=== PATIENT | female | born 1950 | race Caucasian/White ===

== ENCOUNTER → 2018-03-12 13:00 | Outpatient (CLI) | payer OTHER, SELFPAY | PROVIDERS: PCP Family Medicine | DX: Z23 Encounter for immunization (principal) | CPT/HCPCS: 90471; 90662 ==

== ENCOUNTER → 2019-04-01 10:39 | Outpatient (CLI) | payer OTHER, SELFPAY | PROVIDERS: PCP Family Medicine | DX: Z23 Encounter for immunization (principal) | CPT/HCPCS: 90471; 90662 ==

== ENCOUNTER → 2019-04-26 08:06 | Outpatient (CLI) | payer OTHER, SELFPAY | PROVIDERS: PCP Family Medicine; Visit Provider Family Medicine | DX: R30.0 Dysuria (principal) | CPT/HCPCS: 87086 ==

== ENCOUNTER 2019-06-03 08:34 | Emergency (ER) | payer OTHER, SELFPAY ==
[2019-06-03 08:39] VITALS: BP 154/100; PULSE 70; RESP 12; TEMP 36.4; O2SAT 99
--- NOTE | 2019-06-03 08:47 | DI.RAD.S_ITS ---
PROCEDURE: XR KNEE LT 3V INDICATIONS: fall/injury TECHNIQUE: 3 views of the knee were acquired. COMPARISON: None. FINDINGS: Bones: No fractures or dislocations. No suspicious bony lesions. Soft tissues: Moderate joint effusion. No suspicious soft tissue calcifications. IMPRESSION: No visualized acute fracture or dislocation. However, if clinical concern and/or pain persist, short interval imaging followup in 7-10 days is recommended, as occult injury cannot be definitively excluded. Dictated by: Gabi Tamayo M.D. on 06/03/2019 at 8:28 Approved by: Gabi Tamayo M.D. on 06/03/2019 at 8:28
--- NOTE | 2019-06-03 09:10 | ED.FALL ---
HPI - Fall General Chief Complaint: Fall Stated Complaint: fell Time Seen by Provider: 06/03/19 08:58 Source: patient Mode of arrival: Ambulatory Limitations: no limitations History of Present Illness HPI Narrative: 68-year-old female here for evaluation of left knee pain. Patient states this morning she was walking in the hallway here in the hospital where she tripped and fell forward landing on her left knee. Was able to ambulate afterwards but only a short distance. Has had a prior injury to this knee secondary to a fall in the past. States the pain is on the front of her knee. Related Data Previous Rx's Medication Instructions Recorded cephalexin 500 mg PO QID #28 cap 01/07/17 Review of Systems Constitutional Constitutional: Denies fever(s) Musculoskeletal Musculoskeletal: Denies tingling Comments: Left knee pain Integumentary/Breasts Skin/Breast: Denies lesions and Denies rash Neurologic Neurologic: Denies tingling and Denies paresthesias Hematologic/Lymphatic Hematologic/Lymphatic: Denies easy bleeding and Denies easy bruising Patient History Medical History Chronic sinusitis (Inactive) Sinusitis (Inactive) Vertigo (Inactive) Social History Smoking Status: Never smoker Substance Use Type: does not use Exam Initial Vital Signs Initial Vital Signs: Vital Signs Temperature 97.5 F L 06/03/19 08:39 Pulse Rate 70 06/03/19 08:39 Respiratory Rate 12 06/03/19 08:39 Blood Pressure 154/100 H 06/03/19 08:39 Pulse Oximetry 99 06/03/19 08:39 Const General: cooperative and healthy appearing Orientation: alert and awake Resp Effort & Inspection: normal respiratory effort Skin Lesions: no lesions Rashes: no rashes Neuro Sensory Exam: no sensory deficits noted Extrem Other: ACL MCL PCL and LCL all intact with functional testing. No tenderness to palpation on bilateral hamstrings posteriorly. Patient able to do a straight leg raise. No deficits noted in patella or quadriceps tendon. No effusion noted. Psych Appearance: grossly normal and well kempt Procedures Orthopedic Splinting/Casting Injury #1: Side: left Lower Extremity Injury Location: knee Lower Extremity Immobilizer: Kwasi wrap Post splinting neuro exam: intact Post splinting vascular exam: intact Placed by: Nursing Course Orders Ordered: ED Orders 06/03/19 08:47 XR knee LT 3V Stat Vital Signs Vital signs: Vital Signs - 8 hr 06/03/19 08:39 Temperature 97.5 F L Pulse Rate 70 Respiratory Rate 12 Blood Pressure 154/100 H Pulse Oximetry 99 MDM - Fall Imaging Data X-ray knee: Radiologist's impression: [address] [address] XRay Report Signed Patient: Edie Rivera JMR#: [id number] : 3Acct:[id number] Age/Sex: 68 / FDate of Service: 06/03/19 Loc: ED Accession Number: [id number] Procedure: XR knee LT 3V Ordering Provider: Josr De Jesus D.O. PROCEDURE: XR KNEE LT 3V INDICATIONS: fall/injury TECHNIQUE: 3 views of the knee were acquired. COMPARISON: None. FINDINGS: Bones: No fractures or dislocations. No suspicious bony lesions. Soft tissues: Moderate joint effusion. No suspicious soft tissue calcifications. IMPRESSION: No visualized acute fracture or dislocation. However, if clinical concern and/or pain persist, short interval imaging followup in 7-10 days is recommended, as occult injury cannot be definitively excluded. Dictated by: Gabi Tamayo M.D. on 06/03/2019 at 8:28 Approved by: Gabi Tamayo M.D. on 06/03/2019 at 8:28 [facility] Narrative Medical decision making narrative: No fractures are noted on the x-ray. Patient was neurovascularly intact. Do suspect bruising. Low suspicion for ligamentous injury. Patient was given care instructions and return precautions. She expressed understanding and agreement plan. Discharge Plan Departure Patient Disposition: Home Clinical Impression: Injury of knee, left Qualifiers: Encounter type: initial encounter Qualified Code(s): S89.92XA - Unspecified injury of left lower leg, initial encounter Instructions: How To Perform RICE (Rest, Ice, Compress, Elevate), How to Apply an Elastic Wrap on Knee Activity Restrictions/Additional Instructions: No fractures were noted on the x-rays. I do recommend that you ice your knee. Use the Kwasi bandage as needed for comfort as well. You can take Tylenol and/or ibuprofen for any discomfort. Return to the emergency department for any new or worsening symptoms Prescriptions: No Action cephalexin 500 MG capsule 500 mg PO QID Qty: 28 RF: 0 Referrals: Pippa Mera MD [Primary Care Provider] -
== END 2019-06-03 09:45 | disposition home or self-care (01) ==
PROVIDERS: Emergency Provider Emergency Medicine; PCP Family Medicine
DX: S89.92XA Unspecified injury of left lower leg, initial encounter (principal); W01.0XXA Fall on same level from slipping, tripping and stumbling without subsequent striking against object, initial encounter
CPT/HCPCS: 73562; 99283

== ENCOUNTER 2019-06-30 12:54 | Emergency (ER) | payer OTHER, SELFPAY ==
[2019-06-30 13:16] VITALS: BP 197/96; PULSE 70; RESP 18; TEMP 36.4; O2SAT 98
[2019-06-30] MEDS: ONDANSETRON 4 MG ODT SL (13:31)
[2019-06-30] MEDS: MECLIZINE HCL 12.5 MG TABLET 25 MG PO (13:31)
--- NOTE | 2019-06-30 13:52 | ED.DIZZY ---
HPI - Dizziness <MARYAM Green - Last Filed: 06/30/19 20:50> General Chief Complaint: Dizziness Stated Complaint: Vertigo,Nausea Time Seen by Provider: 06/30/19 13:34 Source: patient Mode of arrival: Ambulatory Limitations: no limitations History of Present Illness HPI Narrative: 68-year-old female presents emergency department complaining of vertigo for the past few hours. She states she usually gets a sinus infection which she was diagnosed with on Sunday. She was given antibiotics that she started taking on Sunday, she has also been using Flonase and purchased a Neti pot. However, she states that when she has sinus infections she experiences vertigo. She was in the store today and noted the room started spinning when she turns her head to left. She reports nausea but no vomiting, no syncope, chest pain, shortness of breath, ear pain, diarrhea, abdominal pain, or other concerns. Related Data Home Medications Medication Instructions Recorded Confirmed cefuroxime axetil 500 mg PO BID 06/30/19 06/30/19 Previous Rx's Medication Instructions Recorded meclizine 25 mg PO TID #20 tab 06/30/19 ondansetron 8 mg PO Q8H PRN #14 tab 06/30/19 Allergies Allergy/AdvReac Type Severity Reaction Status Date / Time No Known Drug Allergies Allergy Verified 06/30/19 13:20 Review of Systems <MARYAM Green - Last Filed: 06/30/19 20:50> Review of Systems Narrative: REVIEW OF SYSTEMS: GENERAL: Denies fever or chills. HENT: No head trauma, hearing loss or sore throat. Reports continued sinus congestion, see HPI. EYES: No loss of vision, double vision, eye pain, or irritation. CARDIOVASCULAR: No chest pain or syncope. RESPIRATORY: No shortness of breath or cough. GASTROINTESTINAL: No nausea, vomiting, diarrhea, or constipation. GENITOURINARY: No flank pain or dysuria. MUSCULOSKELETAL: No pain, weakness, or deformities. INTEGUMENTARY: No rash, lesions, or pruritus. NEURO: No numbness, tingling, memory loss, or confusion. Reports vertigo, see HPI. PSYCH: No behavior or mood changes. Patient History <MARYAM Green - Last Filed: 06/30/19 20:50> Medical History Chronic sinusitis (Inactive) Sinusitis (Inactive) Vertigo (Inactive) Social History Smoking Status: Never smoker Smoking Status: Never smoker alcohol intake frequency: holidays/special occasions only Substance Use Type: does not use Exam <MARYAM Green - Last Filed: 06/30/19 20:50> Initial Vital Signs Initial Vital Signs: Vital Signs Temperature 97.6 F 06/30/19 13:16 Pulse Rate 70 06/30/19 13:16 Respiratory Rate 18 06/30/19 13:16 Blood Pressure 197/96 H 06/30/19 13:16 Pulse Oximetry 98 06/30/19 13:16 PHYSICAL EXAMINATION: GENERAL: Well groomed, alert, and cooperative. Answers questions promptly and appropriately. Vital signs noted. HENT: Normocephalic, atraumatic. Ear canals patent. Oral mucosa is pink and moist. Patient's voice has a nasal tone, indicating nasal congestion. EYES: PERRLA, EOMIs,. Conjunctiva pink, sclera white, no periorbital swelling. CHEST: Normal to inspection and without deformities. CARDIOVASCULAR: S1 and S2 sounds normal. Regular rate and rhythm, no murmurs, clicks, or bruits. No pedal edema. RESPIRATORY: Normal respiratory rate, trachea midline, airway patent. No stridor, nasal flaring or accessory muscle use. Lungs are clear in all [place] without wheeze, rhonchi, or crackles. GASTROINTESTINAL: Bowel sounds normoactive. Abdomen is soft and non-tender. No organomegaly. MUSCULOSKELETAL: Normal gait and coordination. Equal tone and mass bilaterally. EXTREMITIES: CMS intact. Moves all extremities. SKIN: Warm, dry, soft, appropriate color for ethnicity. No lesions, rashes, or wounds. NEURO: Alert and Oriented X 3. CN III-XII intact. Good coordination. No ataxia, or sensory deficits, or cognitive issues. No vertical nystagmus. Positive [place]-Hallpike [place] maneuver. PSYCH: Appropriate affect and mood. <Marielos Arceo DO - Last Filed: 07/01/19 23:39> Initial Vital Signs Initial Vital Signs: Vital Signs Temperature 97.6 F 06/30/19 13:16 Pulse Rate 70 06/30/19 13:16 Respiratory Rate 18 06/30/19 13:16 Blood Pressure 197/96 H 06/30/19 13:16 Pulse Oximetry 98 06/30/19 13:16 Scores <MARYAM Green - Last Filed: 06/30/19 20:50> NIH Stroke Scale Level of Conciousness: Alert, keenly responsive Ask month/age: Answers both questions correctly. Open/close eyes, close hand: Performs both tasks correctly Best gaze horizontal: Normal Visual [place]: No visual loss Facial palsy: Normal symetrical movement Left arm drift: No drift for full 10 sec Right arm drift: No drift for full 10 sec Left leg drift: No drift for full 10 sec Right leg drift: No drift for full 10 sec Limb ataxia: Absent Sensory on face/arms/legs: Normal, no sensory loss Best language: No aphasia, normal Dysarthria: Normal Extinction or inattention: No abnormality Total NIH Stroke scale score: 0 Course <MARYAM Green - Last Filed: 06/30/19 20:50> Course Course Narrative: Patient was given meclizine and ondansetron. After an hour in the emergency department, she reports significantly improved symptoms. She states she is able to move her head without feelings of vertigo. Orders Ordered: Discontinued Medications Meclizine HCl (Antivert) 25 mg PO NOW ONE Stop: 06/30/19 13:23 Last Admin: 06/30/19 13:31 Dose: 25 mg Documented by: TG Ondansetron HCl (Zofran Odt) 4 mg SL NOW ONE Stop: 06/30/19 13:23 Last Admin: 06/30/19 13:31 Dose: 4 mg Documented by: TG Consultations Consultation #1: Patient staffed with Dr. Arceo Vital Signs Vital signs: Vital Signs - 8 hr 06/30/19 13:16 06/30/19 14:57 Temperature 97.6 F Pulse Rate 70 68 Respiratory Rate 18 18 Blood Pressure 197/96 H Blood Pressure [Left Arm] 185/82 H Pulse Oximetry 98 94 <Marielos Arceo DO - Last Filed: 07/01/19 23:39> Orders Ordered: Discontinued Medications Meclizine HCl (Antivert) 25 mg PO NOW ONE Stop: 06/30/19 13:23 Last Admin: 06/30/19 13:31 Dose: 25 mg Documented by: TG Ondansetron HCl (Zofran Odt) 4 mg SL NOW ONE Stop: 06/30/19 13:23 Last Admin: 06/30/19 13:31 Dose: 4 mg Documented by: TG Vital Signs Vital signs: Vital Signs - 8 hr 06/30/19 13:16 06/30/19 14:57 Temperature 97.6 F Pulse Rate 70 68 Respiratory Rate 18 18 Blood Pressure 197/96 H Blood Pressure [Left Arm] 185/82 H Pulse Oximetry 98 94 [facility] - Dizziness <Rupinder Lopez MARYAM - Last Filed: 06/30/19 20:50> Medical Records Attestation: I reviewed the patient's medical records. Lab Data Attestation: I reviewed the patient's lab results. [facility] Narrative Medical decision making narrative: This is a 68-year-old female with a history of vertigo who presents emergency department with an onset of vertigo starting today and the grocery store after being treated for sinus infection. History and examination is most consistent with benign positional vertigo (most likely due to positive Corrina-Hallpike maneuver, resolution of symptoms after medication administration, and lack of other significant symptoms such as fever neck pain). Less likely stroke as NIH score of 0, resolution of symptoms after administration meclizine, history of vertigo, recent sinus flexion. Less likely cardiac or pulmonary etiology due to lack of other symptoms such as chest pain or shortness of breath and resolution of symptoms after meclizine menstruation. Patient was counseled extensively to return emergency department if she develops new or worsening symptoms. She is prescribed meclizine to take for the next few days. Patient agreed with plan of care verbalized understanding. Discharge Plan Departure Patient Disposition: Home Clinical Impression: Vertigo Discharge Date/Time: 06/30/19 15:03 Instructions: DI for Vertigo Activity Restrictions/Additional Instructions: Thank you for entrusting me with your care today. As discussed, your symptoms are most likely caused by vertigo. I've given you a prescription for meclizine, anti vertigo medication and ondansetron, an anti nausea medication. [facility] in [place]. Continue to use Flonase and take your antibiotics. Follow up with your primary care provider in 1-2 weeks for re-evaluation of symptoms continue. Prescriptions: New ondansetron 8 mg tablet,disintegrating 8 mg PO Q8H PRN (Reason: nausea and vomiting) Qty: 14 RF: 0 meclizine 25 mg tablet 25 mg PO TID Qty: 20 RF: 0 No Action cefuroxime axetil 500 mg tablet 500 mg PO BID RF: 0 Referrals: Pippa Mera MD [Primary Care Provider] -
[2019-06-30 14:57] VITALS: BP 185/82; PULSE 68; RESP 18; O2SAT 94
== END 2019-06-30 15:03 | disposition home or self-care (01) ==
PROVIDERS: Emergency Provider Nurse Practitioner; PCP Family Medicine
DX: R42 Dizziness and giddiness (principal)
CPT/HCPCS: 99281; 99283

== ENCOUNTER 2019-09-14 05:42 | Emergency (ER) | payer OTHER, SELFPAY ==
[2019-09-14 05:59] VITALS: BP 130/74; PULSE 78; RESP 20; TEMP 36.7; O2SAT 98; BMI 35.2
--- NOTE | 2019-09-14 06:15 | DI.RAD.S_ITS ---
PROCEDURE: XR CHEST 1V INDICATIONS: cough and fever eval for PNA TECHNIQUE: One view of the chest was acquired. COMPARISON: [facility], CHEST 2 VIEW, 08/16/2014, 9:34. [facility], , CHEST 2 VIEW, 09/21/2014, 7:17. FINDINGS: Surgical changes and devices: None. Lungs and pleura: Lungs are clear. No pleural effusions or pneumothorax. Mediastinum: Mediastinal contours appear normal. Heart size is normal. Bones and chest wall: No suspicious bony lesions. Age-appropriate bony degenerative changes are seen. Overlying soft tissues appear unremarkable. IMPRESSION: Clear lungs. Note: No significant discrepancy from the preliminary report. Dictated by: Poncho Curry M.D. on 09/14/2019 at 7:03 Approved by: Poncho Curry M.D. on 09/14/2019 at 7:04
--- NOTE | 2019-09-14 06:15 | ED_ITS ---
HPI - General Adult General Chief complaint: Upper Respiratory Symptoms Stated complaint: cough small fever sinus infection Time Seen by Provider: 09/14/19 06:05 Source: patient Mode of arrival: Ambulatory Limitations: no limitations History of Present Illness HPI narrative: 68-year-old female. Currently on Keflex prescribed to her by an outside facility for a sinus infection. Here for evaluation of a cough. Is productive. No fevers. Been going on for the past couple days. At the than the Keflex as an tried anything for symptoms. No underlying lung issues. Related Data Home Medications Medication Instructions Recorded Confirmed cefuroxime axetil 500 mg PO BID 06/30/19 06/30/19 Previous Rx's Medication Instructions Recorded meclizine 25 mg PO TID #20 tab 06/30/19 ondansetron 8 mg PO Q8H PRN #14 tab 06/30/19 benzonatate [Tessalon Perles] 100 mg PO TID PRN #20 cap 09/14/19 prednisone 40 mg PO DAILY 3 Days #6 tab 09/14/19 Allergies Allergy/AdvReac Type Severity Reaction Status Date / Time No Known Drug Allergies Allergy Verified 06/30/19 13:20 Review of Systems Constitutional Constitutional: Denies fever(s) ENT Ears, Nose, Mouth, and Throat: Denies sore throat Respiratory Respiratory: Reports chest congestion, Reports cough and Reports wheezing Integumentary/Breasts Skin/Breast: Denies lesions and Denies rash Neurologic Neurologic: Denies behavioral changes Psychiatric Psychiatric: Denies behavioral changes Allergic/Immunologic Allergic/Immunologic: Reports wheezing Patient History Medical History Chronic sinusitis (Inactive) Sinusitis (Inactive) Vertigo (Inactive) Social History Smoking Status: Never smoker Smoking Status: Never smoker alcohol intake frequency: holidays/special occasions only Substance Use Type: does not use Exam Initial Vital Signs Initial Vital Signs: Vital Signs Temperature 98.1 F 09/14/19 05:59 Pulse Rate 78 09/14/19 05:59 Respiratory Rate 20 09/14/19 05:59 Blood Pressure 130/74 09/14/19 05:59 Pulse Oximetry 98 09/14/19 05:59 Const General: cooperative and comfortable Resp Effort & Inspection: normal respiratory effort and not labored Auscultation: rhonchi and wheezes Cardio Rate: regular rate Rhythm: regular rhythm Skin Lesions: no lesions Rashes: no rashes Neuro General: alert and awake Extrem General: normal to inspection Psych Appearance: grossly normal and well kempt Course Orders Ordered: ED Orders 09/14/19 06:15 XR chest 1V Stat Discontinued Medications Albuterol (Ventolin) 2.5 mg INH NOW ONE Stop: 09/14/19 06:15 Last Admin: 09/14/19 06:26 Dose: 2.5 mg Documented by: MARY Vital Signs Vital signs: Vital Signs - 8 hr 09/14/19 05:59 09/14/19 06:26 Temperature 98.1 F Pulse Rate 78 70 Respiratory Rate 20 20 Blood Pressure 130/74 Pulse Oximetry 98 95 Medical Decision Making Imaging Data Chest x-ray: Attestation: I personally reviewed and interpreted this imaging study as follows: My Impression: No focal consolidations No pneumonia MDM Narrative Medical decision making narrative: Patient not hypoxic. Not tachypneic. Not tachycardic. Afebrile. Does have coarse breath sounds bilateral which did improve after a albuterol treatment both objectively and subjectively. Chest x- ray does not show any definitive signs of pneumonia. Is currently on Keflex for a sinus infection. This is prescribed by an outside facility. Would not have been my 1st choice for an antibiotic however since she is already started it we will continue to have her take it. With her cough to suspect bronchitis. She did improve with the albuterol inhaler so will send home with a spacer and an MDI. We will also do a short course of steroids. Also give Tessalon Perles. Was given return precautions and follow-up instructions. She expressed understanding. Discharge Plan Departure Patient Disposition: Home Clinical Impression: Bronchitis Instructions: DI for Acute Bronchitis Activity Restrictions/Additional Instructions: Continue the antibiotics as directed. Use the albuterol inhaler as needed as directed. Contact your primary provider for follow-up. Return to the emergency department for any new or worsening symptoms Prescriptions: New benzonatate [Tessalon Perles] 100 mg capsule 100 mg PO TID PRN (Reason: cough) Qty: 20 RF: 0 prednisone 20 mg tablet 40 mg PO DAILY 3 Days Qty: 6 RF: 0 No Action cefuroxime axetil 500 mg tablet 500 mg PO BID RF: 0 ondansetron 8 mg tablet,disintegrating 8 mg PO Q8H PRN (Reason: nausea and vomiting) Qty: 14 RF: 0 meclizine 25 mg tablet 25 mg PO TID Qty: 20 RF: 0 Referrals: Pippa Mera MD [Primary Care Provider] -
[2019-09-14 06:26] VITALS: PULSE 70; RESP 20; O2SAT 95
[2019-09-14] MEDS: ALBUTEROL 2.5 MG/3 ML NEB (ADULT) INH (06:26)
[2019-09-14] MEDS: ALBUTEROL HFA PREPACK 1 BOX MISC (07:53)
--- NOTE | 2019-09-14 07:54 | RT ---
Pt instructed proper MDI usage.
[2019-09-14 08:06] VITALS: BP 124/70; PULSE 71; RESP 18; O2SAT 97
== END 2019-09-14 08:05 | disposition home or self-care (01) ==
PROVIDERS: Emergency Provider Emergency Medicine; PCP Family Medicine
DX: J40 Bronchitis, not specified as acute or chronic (principal)
CPT/HCPCS: 71045; 94640; 99283; J7613

== ENCOUNTER → 2019-12-22 07:37 | Outpatient (CLI) | payer OTHER, SELFPAY ==
--- NOTE | 2019-12-22 | DI.CT.S_ITS ---
PROCEDURE: CT SINUS SCREEN WO CON INDICATIONS: Chronic sinusitis TECHNIQUE: Noncontrast 3.0 mm axial images acquired from the frontal sinuses to the mid-sella, with coronal and sagittal reformats. For radiation dose reduction, the following was used: automated exposure control, adjustment of mA and/or kV according to patient size. COMPARISON: CT, SINUS SCREEN, 02/08/2010, 7:08. [facility], CT, SINUS SCREEN WO CONTRAST, 10/29/2015, 7:09. FINDINGS: Image quality: Excellent. Sinuses: There is minimal bilateral maxillary and trace ethmoid mucosal thickening. Remaining sinuses are clear. Ostiomeatal Complexes: Ostiomeatal complexes are patent. Miscellaneous: Visualized intra-orbital contents are normal. There is mild [id number] nasal septal deviation. There is a paradoxical right middle turbinate. There is slight hypertrophy of the left middle turbinate in comparison to the right of uncertain clinical significance. IMPRESSION: 1. Minimal scattered maxillary ethmoid mucosal thickening. 2. Ostiomeatal complexes are patent. Dictated by: Gabi Tamayo M.D. on 12/22/2019 at 13:00 Approved by: Gabi Tamayo M.D. on 12/22/2019 at 14:23
== END ==
PROVIDERS: PCP Family Medicine; Referring Provider Family Medicine; Visit Provider Family Medicine
DX: J32.9 Chronic sinusitis, unspecified (principal); J34.2 Deviated nasal septum
CPT/HCPCS: 70486

== ENCOUNTER 2020-03-07 08:52 | Emergency (ER) | payer OTHER, SELFPAY ==
[2020-03-07] VITALS (7 sets, daily range): BP systolic 199–214; BP diastolic 84–99; PULSE 51–77; RESP 10–28; TEMP 36.6; O2SAT 87–100; BMI 36.1
--- NOTE | 2020-03-07 09:27 | ED_ITS ---
HPI - Abdominal Pain General Chief Complaint: Abdominal Pain Stated Complaint: nauseu/ vomiting/ diarrhea Time Seen by Provider: 03/07/20 09:03 Source: patient Mode of arrival: Ambulatory Limitations: no limitations History of Present Illness HPI narrative: Patient is a 69-year-old who presents with epigastric pain. She says she ate [place] 2nd through pus diet with started having epigastric pain she threw up 3 times then immediately felt better she had a small amount of diarrhea. Her symptoms have completely resolved now. She is noted be quite hypertensive in the emergency department with a systolic over 200. She denies any known history of hypertension. 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 MD complaint: abdominal pain Pain Consistency: now resolved Location: epigastric Related Data Home Medications Medication Instructions Recorded Confirmed cefuroxime axetil 500 mg PO BID 06/30/19 06/30/19 Previous Rx's Medication Instructions Recorded meclizine 25 mg PO TID #20 tab 06/30/19 ondansetron 8 mg PO Q8H PRN #14 tab 06/30/19 benzonatate [Tessalon Perles] 100 mg PO TID PRN #20 cap 09/14/19 Allergies Allergy/AdvReac Type Severity Reaction Status Date / Time No Known Drug Allergies Allergy Verified 06/30/19 13:20 Review of Systems Review of Systems Narrative: GENERAL: Denies chills, fatigue, malaise, fever, sweats, travel HEENT: Denies sinus pain, ear pain, sore throat, difficulty swallowing, neck pain RESPIRATORY: Denies dyspnea, cough, wheezing, hemoptysis, sputum. CARDIOVASCULAR: Denies chest pain, palpitations, orthopnea, edema GASTROINTESTINAL: See HPI : Denies dysuria, frequency, incontinence, hematuria, urinary retention, flank pain. MUSCULOSKELETAL: Denies weakness, joint pain, or bony pain SKIN: No rash, no erythema, no pruritus NEUROLOGIC: Denies weakness, dizziness, headache, numbness, change in speech, confusion PSYCHIATRIC: No concerning psychosocial issues. 12 point review of systems is negative except for those stated above and HPI Patient History Medical History Chronic sinusitis (Inactive) Sinusitis (Inactive) Vertigo (Inactive) Social History Smoking Status: Never smoker Smoking Status: Never smoker alcohol intake frequency: holidays/special occasions only Substance Use Type: does not use Exam Initial Vital Signs Initial Vital Signs: Vital Signs Temperature 97.9 F 03/07/20 09:10 Pulse Rate 77 03/07/20 09:10 Respiratory Rate 20 03/07/20 09:10 Blood Pressure 214/99 H 03/07/20 09:10 Pulse Oximetry 99 03/07/20 09:10 GENERAL: Well-appearing, well-nourished and in no acute distress. HEENT: Head atraumatic,EOMI, pupils reactive, face symmetric, moist mucous membranes CARDIOVASCULAR: Regular rate and rhythm without murmurs, rubs or gallops. RESPIRATORY: Breath sounds equal bilaterally, no wheezes rales or rhonchi. ABDOMEN: Soft, nontender. Normoactive bowel sounds all 4 quadrants. No guarding or rebound. No Real sign EXTREMITIES: Normal range of motion, no clubbing or edema. Neurovascularly intact NEUROLOGICAL: Alert and oriented x4.Normal gait and speech. SKIN: Warm, dry, no laceration, no petechiae, no rashes or lesions. Course Orders Ordered: ED Orders 03/07/20 09:09 EKG-12 Lead Routine 03/07/20 09:30 Complete Blood Count AUTO DIFF Stat Comprehensive Metabolic Panel Stat Lipase Stat Troponin & CK Cardiac Panel Stat 03/07/20 09:35 XR chest 1V Stat COVID19 -ED/INPAT/OR/L&D Stat Vital Signs Vital signs: Vital Signs - 8 hr 03/07/20 09:10 03/07/20 09:29 03/07/20 09:30 Temperature 97.9 F Pulse Rate 77 59 L 63 Respiratory Rate 20 28 H 16 Blood Pressure 214/99 H 201/89 H Pulse Oximetry 99 98 99 03/07/20 10:00 03/07/20 10:01 03/07/20 10:30 Temperature Pulse Rate 54 L 55 L 55 L Respiratory Rate 10 L 18 20 Blood Pressure 202/84 H Pulse Oximetry 97 97 87 L 03/07/20 10:31 Temperature Pulse Rate 51 L Respiratory Rate 13 Blood Pressure 199/88 H Pulse Oximetry 100 MDM - Abdominal Pain Lab Data Attestation: I reviewed the patient's lab results. Result diagrams: 03/07/20 09:30 03/07/20 09:30 Labs: Lab Results 03/07/20 03/07/20 Range/Units 09:30 09:30 WBC 6.8 (4.5-11.0) X10^3/uL RBC 4.56 (4.0-5.2) X10^6/uL Hgb 13.8 (12.0-16.0) g/dL Hct 41.3 (36-46) % MCV 90.4 (80-100) fL MCH 30.2 (26-34) PG MCHC 33.4 (30-36) % RDW 13.1 (11.6-14.8) % Plt Count 226 (150-400) X10^3/uL Neut % (Auto) 79.4 H (50-75) % Lymph % (Auto) 15.3 L (25-40) % [place] % (Auto) 4.3 (3-14) % Eos % (Auto) 0.4 L (2-4) % Baso % (Auto) 0.6 (0-2) % Neut # (Auto) 5400 (7565-3267) /uL Lymph # (Auto) 1000 L (8169-3349) /uL [place] # (Auto) 300 (0-900) /uL Eos # (Auto) 0 (0-450) /uL Baso # (Auto) 0 (0-100) /uL Sodium 139 (137-145) mmol/L Potassium 4.1 (3.4-5.1) mmol/L Chloride 106 (98-107) mmol/L Carbon Dioxide 31 (22-32) mmol/L BUN 17 (7-17) mg/dL Creatinine 0.64 (0.52-1.04) mg/dL Estimated GFR > 60.0 (>60) mL/min BUN/Creatinine Ratio 26.6 H (6-22) Glucose 108 (80-110) mg/dL Calcium 9.1 (8.4-10.2) mg/dL Total Bilirubin 0.4 (0.2-1.3) mg/dL AST 27 (14-36) IU/L ALT 15 (<35) IU/L Alkaline Phosphatase 94 (38-126) U/L Total Creatine Kinase 114 (30-135) U/L CK-MB (CK-2) 1.23 (<2.37) ng/mL CK-MB (CK-2) Rel Index 1.1 L (1.5-5.0) % Troponin I < 0.012 (0.01-0.034) ng/mL Total Protein 7.0 (6.3-8.2) g/dL Albumin 4.1 (3.5-5.0) g/dL Globulin 2.9 (1.7-4.1) g/dL Albumin/Globulin Ratio 1.4 (1.0-2.8) Lipase 87 (23-300) U/L Imaging Data Chest x-ray: Radiologist's Impression: PROCEDURE: XR CHEST 1V INDICATIONS: CHEST PAIN TECHNIQUE: One view of the chest was acquired. COMPARISON: [facility], , CHEST 2 VIEW, 09/21/2014, 7:17. [facility], , CHEST 2 VIEW, 08/16/2014, 9:34. [facility], , XR CHEST 1V, 09/14/2019, 6:39. FINDINGS: Surgical changes and devices: None. Lungs and pleura: Lungs are clear. No pleural effusions or pneumothorax. Mediastinum: Mediastinal contours appear normal. Heart size is normal. Bones and chest wall: No suspicious bony lesions. Age-appropriate bony degener ative changes are seen. Overlying soft tissues appear unremarkable. IMPRESSION: Portable chest within normal limits. Dictated by: Poncho Curry M.D. on 03/07/2020 at 9:29 Approved by: Poncho Curry M.D. on 03/07/2020 at 9:30 ECG Data Attestation: I personally reviewed and interpreted this ECG as follows: Prior ECG tracings: not available for review Interpretation: Normal sinus rhythm rate 58 p.r. interval 172 QRS [address] changes no priors to compare MDM Narrative Medical decision making narrative: The patient's symptoms have completely resolved in the emergency department. She is however noted to be quite hypertensive which does improve slightly. Patient is quite anxious however at this time I recommend she follow-up with her PCP in regard to her blood pre ssure. There is no sign of end-organ damage. 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 I recommend if she still having symptoms to be tested in a couple of it days. Patient understands and agrees. I discussed all findings with the patient , Education has been performed regarding treatment plan, diagnosis, warning signs and symptoms and all concerns have been addressed. Verbally agree with and understood all of the above. Discharge Plan Departure Patient Disposition: Home Clinical Impression: Gastroenteritis Discharge Date/Time: 03/07/20 11:12 Instructions: DI for Viral Gastroenteritis -- Adult Activity Restrictions/Additional Instructions: *You have been diagnosed with gastroenteritis *What to do: You likely had a stomach bug. Increasing fluid intake with Gatorade or Gatorade like substance. Small frequent sips. You also need to have your blood pressure rechecked with her PCP it is remained elevated in the emergency department and you may need medications issue are continuing to experience diarrhea, vomiting, fever, sore throat, shortness of breath it may benefit you to be tested for COVID-19. *Continue to take medications as directed *Follow up with your primary care provider in 2-3 days *Return to ER if you should have inability to tolerate fluids, any of the above symptoms or any new, worsening or concerning symptoms Prescriptions: No Action cefuroxime axetil 500 mg tablet 500 mg PO BID RF: 0 ondansetron 8 mg tablet,disintegrating 8 mg PO Q8H PRN (Reason: nausea and vomiting) Qty: 14 RF: 0 meclizine 25 mg tablet 25 mg PO TID Qty: 20 RF: 0 benzonatate [Tessalon Perles] 100 mg capsule 100 mg PO TID PRN (Reason: cough) Qty: 20 RF: 0 Referrals: Pippa Mera MD [Primary Care Provider] -
--- NOTE | 2020-03-07 09:35 | DI.RAD.S_ITS ---
PROCEDURE: XR CHEST 1V INDICATIONS: CHEST PAIN TECHNIQUE: One view of the chest was acquired. COMPARISON: [facility], CHEST 2 VIEW, 09/21/2014, 7:17. [facility], , CHEST 2 VIEW, 08/16/2014, 9:34. [facility], , XR CHEST 1V, 09/14/2019, 6:39. FINDINGS: Surgical changes and devices: None. Lungs and pleura: Lungs are clear. No pleural effusions or pneumothorax. Mediastinum: Mediastinal contours appear normal. Heart size is normal. Bones and chest wall: No suspicious bony lesions. Age-appropriate bony degenerative changes are seen. Overlying soft tissues appear unremarkable. IMPRESSION: Portable chest within normal limits. Dictated by: Poncho Curry M.D. on 03/07/2020 at 9:29 Approved by: Poncho Curry M.D. on 03/07/2020 at 9:30
[2020-03-07 10:02] LABS: Add Manual Diff / Slide Review NO; Basophils Absolute Auto 0 /uL (0-100); Basophils Percent Auto 0.6 % (0-2); Eosinophils Absolute Auto 0 /uL (0-450); Eosinophils Percent Auto 0.4 % (2-4); Hematocrit 41.3 % (36-46); Hemoglobin 13.8 g/dL (12.0-16.0); Lymphocytes Absolute Auto 1000 /uL (1100-4500); Lymphocytes Percent Auto 15.3 % (25-40); Mean Corpuscular HGB Conc 33.4 % (30-36); Mean Corpuscular Hemoglobin 30.2 PG (26-34); Mean Corpuscular Volume 90.4 fL (80-100); Monocytes Absolute Auto 300 /uL (0-900); Monocytes Percent Auto 4.3 % (3-14); Neutrophils Absolute Auto 5400 /uL (1500-7000); Neutrophils Percent Auto 79.4 % (50-75); Platelet Count 226 X10^3/uL (150-400); Red Blood Cell Count 4.56 X10^6/uL (4.0-5.2); Red Cell Distribution Width 13.1 % (11.6-14.8); White Blood Cell Count 6.8 X10^3/uL (4.5-11.0)
[2020-03-07 10:06] LABS: Alanine Aminotransferase 15 IU/L (<35); Albumin 4.1 g/dL (3.5-5.0); Albumin Globulin Ratio 1.4 (1.0-2.8); Alkaline Phosphatase 94 U/L (38-126); Aspartate Aminotransferase 27 IU/L (14-36); BUN Creatinine Ratio 26.6 (6-22); Bilirubin Total 0.4 mg/dL (0.2-1.3); Blood Urea Nitrogen 17 mg/dL (7-17); Calcium 9.1 mg/dL (8.4-10.2); Carbon Dioxide 31 mmol/L (22-32); Chloride 106 mmol/L (98-107); Creatine Kinase 114 U/L (30-135); Estimated Glomerular Filt Rate > 60.0 mL/min (>60); Globulin 2.9 g/dL (1.7-4.1); Glucose 108 mg/dL (80-110); Lipase 87 U/L (23-300); Potassium 4.1 mmol/L (3.4-5.1); Sodium 139 mmol/L (137-145)
[2020-03-07 10:19] LABS: HEMOLYSIS < 15 (0-50); Troponin I < 0.012 ng/mL (0.01-0.034)
[2020-03-07 10:21] LABS: CKMB % Relative Index 1.1 % (1.5-5.0); Creatine Kinase MB 1.23 ng/mL (<2.37)
== END 2020-03-07 11:12 | disposition home or self-care (01) ==
PROVIDERS: Emergency Provider Emergency Medicine; PCP Family Medicine
DX: K52.9 Noninfective gastroenteritis and colitis, unspecified (principal); R07.9 Chest pain, unspecified
CPT/HCPCS: 36415; 71045; 80053; 82550; 82553; 83690; 84484; 85025; 93005; 99284

== ENCOUNTER → 2020-04-01 | Outpatient (CLI) | payer OTHER, SELFPAY | PROVIDERS: PCP Family Medicine; Referring Provider Internal Medicine; Visit Provider Internal Medicine | DX: Z23 Encounter for immunization (principal) | CPT/HCPCS: 90471; 90662 ==

== ENCOUNTER 2020-05-07 10:42 | Emergency (ER) | payer OTHER, SELFPAY ==
[2020-05-07] VITALS (7 sets, daily range): BP systolic 151–206; BP diastolic 65–86; PULSE 66–78; RESP 16; TEMP 37; O2SAT 94–100; BMI 37.0
--- NOTE | 2020-05-07 11:27 | DI.US.S_ITS ---
PROCEDURE: US PERIPH VENOUS LOW EXTREM RT INDICATIONS: RIGHT LOWER EXTREMITY SWELLING, CALF CRAMPING TECHNIQUE: Real-time imaging, as well as color and pulse Doppler interrogation, were performed of the lower extremity deep veins from the inguinal ligament to the popliteal fossa. COMPARISON: None. FINDINGS: The common femoral, femoral and popliteal veins are normally compressible, and free of intraluminal thrombus. Color and pulse Doppler demonstrate normal phasic intraluminal flow. There is normal augmentation response to distal compression maneuver. IMPRESSION: No evidence of deep venous thrombosis. Dictated by: Mu Sullivan M.D. on 05/07/2020 at 12:19 Approved by: Mu Sullivan M.D. on 05/07/2020 at 12:22
[2020-05-07] MEDS: LIDOCAINE PATCH 1 EACH ADH..PATCH TOP (13:59)
--- NOTE | 2020-05-07 14:36 | ED_ITS ---
HPI - Back Pain/Injury <MARYAM Santos - Last Filed: 05/07/20 21:48> General Chief Complaint: Back Pain/Injury Stated Complaint: Mid back pain,Right leg pain Time Seen by Provider: 05/07/20 14:12 Source: patient Mode of arrival: Ambulatory Limitations: no limitations History of Present Illness HPI Narrative: This is a 69-year-old female, nonsmoker, who has no contributory medical history presents to ED with left lumbar pain when she woke up this morning became worse she tried to turn over. Pain was so severe he sled down to the floor but denies trauma or a hard fall. Patient reports when pain is severe pain crosses the waist. Patient denies weakness to legs. Patient denies fever, chills, nausea or vomiting. Patient denies previous back surgery or history of IV drug use. Reports pain worse with changing in position, walking. She drove herself to emergency room today. Also, patient reports right calf pain and slight swelling. 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 She denies history of blood clots or DVT, hormone replacement, prolonged travel. She denies redness or warmth to affected leg. Related Data Previous Rx's Medication Instructions Recorded meclizine 25 mg PO TID #20 tab 06/30/19 ondansetron 8 mg PO Q8H PRN #14 tab 06/30/19 cyclobenzaprine 5 - 10 mg PO BID PRN #10 tab 05/07/20 lidocaine 1 patch TOP DAILY PRN #30 each 05/07/20 Allergies Allergy/AdvReac Type Severity Reaction Status Date / Time No Known Drug Allergies Allergy Verified 05/07/20 11:08 Review of Systems <MARYAM Santos - Last Filed: 05/07/20 21:48> Review of Systems Narrative: General: Denies fever, chills, fatigue, malaise, sweats. HEENT: Denies sinus pain, ear pain, sore throat, difficulty swallowing, dizziness. Respiratory: Denies dyspnea, cough, wheezing, hemoptysis, sputum. Cardiovascular: Denies chest pain, palpitations, orthopnea, edema. Gastrointestinal: Denies nausea, vomiting, abdominal pain, diarrhea, constipation, melena. : Denies dysuria, frequency, incontinence, hematuria, urinary retention. Musculoskeletal: See HPI Skin: Denies rash, skin lesions, or other. Neurologic: Denies weakness, headache, numbness, change in speech, confusion, seizures, incoordination. Psychiatric: No concerning psychosocial issues. 12-point review of systems is negative except for those stated above. Patient History <MARYAM Santos - Last Filed: 05/07/20 21:48> Medical History Chronic sinusitis (Inactive) Sinusitis (Inactive) Vertigo (Inactive) Social History Smoking Status: Never smoker Smoking Status: Never smoker alcohol intake frequency: holidays/special occasions only Substance Use Type: does not use Exam <MARYAM Santos - Last Filed: 05/07/20 21:48> Narrative Exam Narrative: General appearance: well developed, well nourished, in no acute distress. Head: normocephalic, atraumatic, no scalp lesions, non-tender. ENT: Hearing grossly intact. Nose without bleeding, purulent discharge, septal hematoma or deviation. Turbinate without erythema or swelling. Mucous membrane moist, no mucosal lesion. Throat without erythema, tonsillar hypertrophy or exudate. Uvula in midline, airway patent. Neck/Thyroid: neck supple, full range of motion, no visible masses or meningeal signs. No JVD, non-tender without lymphadenopathy. Skin: no suspicious rashes, lesions over visible areas. Warm and dry and appropriate color for ethnicity. Heart: no clubbing, no cyanosis, no edema. S1 and S2 normal. RRR w/o murmurs, clicks, or bruits. Lungs: Breathing even and unlabored. No stridor. No accessory muscles used. Able to speak in full sentences. Chest: normal shape and expansion. Abdomen: non-obese, non-distended. Neurologic: alert and oriented. Cognitive exam, DEAL ARCHITECT and PNS grossly intact on informal exam. Psych: good eye contact, normal affect. Initial Vital Signs Initial Vital Signs: Vital Signs Pulse Rate 78 05/07/20 11:04 Respiratory Rate 16 05/07/20 11:04 Blood Pressure 206/83 H 05/07/20 11:04 Pulse Oximetry 98 05/07/20 11:04 Back/Spine/Pelvis Back: normal to inspection, back tenderness (left lower back), No CVA tenderness, No ecchymosis, No erythema, No mass and No warmth Thoracic/Lumbar Spine: straight leg raise negative bilaterally, bend over test abnormal, pain with thoraco-lumbar ROM, paraspinal tenderness (left lumbar), thoraco-lumbar spasm (left lumbar region), No thoracic spinal tenderness, No lumbar spinal tenderness and No tilt present Extrem Right lower extremity: normal to inspection, full ROM, lower leg Details: normal to inspection, tenderness Location: of the posterior calf and no edema; no erythema, no localized swelling, no lacerations, no ecchymosis and no crepitus and foot Details: normal capillary refill, toes with normal ROM, vascular exam Details: dorsalis pedis pulse present and normal capillary refill and motor- sensory exam Details: light-touch normal; no cyanosis and no edema <Angelina Lopez DO - Last Filed: 05/12/20 07:23> Initial Vital Signs Initial Vital Signs: Vital Signs Pulse Rate 78 05/07/20 11:04 Respiratory Rate 16 05/07/20 11:04 Blood Pressure 206/83 H 05/07/20 11:04 Pulse Oximetry 98 05/07/20 11:04 Scores <MARYAM Santos - Last Filed: 05/07/20 21:48> GCS [place] coma scale eye opening: Spontaneous [place] coma scale verbal response: Orientated [place] coma scale motor response: Obey commands [place] coma scale total score: 15 qSOFA Altered Mental Status (GCS <15): No Respiratory rate greater than/equal to 22: No Systolic blood pressure less than or equal to 100: No qSOFA Total: 0 0-1 Not High Risk 1-3 High risk Wells' Criteria for DVT Active Cancer (Treatment within 6 months): No Bedridden recently >3 days or major surgery within 4 weeks: No Calf Swelling >3cm compared to other leg: No Collateral (nonvericose) superficial veins present: No Entire leg swollen: No Localized tenderness along the deep vein system: No Pitting edema, confined to symtomatic leg: No Paralysis, paresis, or recent plaster immobilization of ext: No Previously documented DVT: No Alternative dx to DVT as likely or more likely: No Wells' criteria for DVT: 0 Course <MARYAM Santos - Last Filed: 05/07/20 21:48> Orders Ordered: Discontinued Medications Acetaminophen (Tylenol) 650 mg PO NOW ONE Stop: 05/07/20 14:34 Last Admin: 05/07/20 14:55 Dose: 650 mg Documented by: MISHAINOR Ketorolac Tromethamine (Toradol) 30 mg IM NOW ONE Stop: 05/07/20 14:34 Last Admin: 05/07/20 14:55 Dose: 30 mg Documented by: MMINOR Lidocaine (Lidoderm) 1 each TOP NOW ONE Stop: 05/07/20 13:57 Last Admin: 05/07/20 13:59 Dose: 1 each Documented by: NIDA Vital Signs Vital signs: Vital Signs - 8 hr 05/07/20 15:03 05/07/20 15:30 05/07/20 15:31 Pulse Rate 66 69 69 Blood Pressure 191/86 H 162/72 H Pulse Oximetry 99 100 98 05/07/20 16:00 05/07/20 16:30 Pulse Rate 73 70 Blood Pressure 151/65 H 180/71 H Pulse Oximetry 94 97 <Angelina Lopez DO - Last Filed: 05/12/20 07:23> Orders Ordered: Discontinued Medications Acetaminophen (Tylenol) 650 mg PO NOW ONE Stop: 05/07/20 14:34 Last Admin: 05/07/20 14:55 Dose: 650 mg Documented by: MISHAINOR Ketorolac Tromethamine (Toradol) 30 mg IM NOW ONE Stop: 05/07/20 14:34 Last Admin: 05/07/20 14:55 Dose: 30 mg Documented by: MMINOR Lidocaine (Lidoderm) 1 each TOP NOW ONE Stop: 05/07/20 13:57 Last Admin: 05/07/20 13:59 Dose: 1 each Documented by: NIDA Vital Signs Vital signs: Vital Signs - 8 hr 05/07/20 15:03 05/07/20 15:30 05/07/20 15:31 Pulse Rate 66 69 69 Blood Pressure 191/86 H 162/72 H Pulse Oximetry 99 100 98 05/07/20 16:00 05/07/20 16:30 Pulse Rate 73 70 Blood Pressure 151/65 H 180/71 H Pulse Oximetry 94 97 MDM - Back Pain/Injury <MARYAM Santos - Last Filed: 05/07/20 21:48> Differential Diagnosis Differential diagnosis: Likely strain of lumbar region, pyelonephritis and other (calf pain, DVT, spine compression fracture) Medical Records Attestation: I reviewed the patient's medical records. Lab Data Attestation: I reviewed the patient's lab results. Labs: Urine Dip Bedside Urine Glucose Negative Bedside Urine Bilirubin - Negative Bedside Urine Ketone +++ 80 Urine Specific [place] 1.030 Bedside Urine Occult Blood + Bedside Urine pH 6.0 Bedside Urine Protein +/- 15 Bedside Urine Urobilinogen - Negative Bedside Urine Nitrite - Negative Bedside Urine Leukocytes - Negative Esterase Imaging Data XR-Lumbar: Radiologist's Impression: [address] [id number] XRay Report Signed Patient: Edie Rivera THEODORER#: [id number] : 3Acct:[id number] Age/Sex: 69 / FDate of Service: 05/07/20 Loc: ED Accession Number: [id number] Procedure: XR lumbar spine 2-3V Ordering Provider: Jeremi Griffin PROCEDURE: XR LUMBAR SPINE 2-3V INDICATIONS: left lumbar pain, s/p a gentle fall TECHNIQUE: 3 views of the lumbar spine were acquired. COMPARISON: None. FINDINGS: Bones: 5 [id number] vertebrae are present. There is normal bony alignment. No acute vertebral body compression fractures. No suspicious bony lesions. Moderate multilevel lumbar spondylosis with severe lower lumbar facet arthropathy. Degenerative changes of the bilateral femoroacetabular joints. Soft tissues: Overlying bowel gas pattern is normal. No suspicious soft tissue calcifications. IMPRESSION: Lumbar spine without acute osseous abnormalities. Moderate multilevel lumbar spondylosis. Dictated by: Julien Morales M.D. on 05/07/2020 at 14:52 Approved by: Julien Morales M.D. on 05/07/2020 at 14:53 US-DVT RLE: Radiologist's Impression: [address] [address] Ultrasound Report Signed Patient: Edie Rivera JMR#: [id number] : 3Acct:[id number] Age/Sex: 69 / FDate of Service: 05/07/20 Loc: ED Accession Number: [id number] Procedure: perip venous low extrem rt Ordering Provider: Angelina Lopez D.O. PROCEDURE: US PERIPH VENOUS LOW EXTREM RT INDICATIONS: RIGHT LOWER EXTREMITY SWELLING, CALF CRAMPING TECHNIQUE: Real-time imaging, as well as color and pulse Doppler interrogation, were performed of the lower extremity deep veins from the inguinal ligament to the popliteal fossa. COMPARISON: None. FINDINGS: The common femoral, femoral and popliteal veins are normally compressible, and free of intraluminal thrombus. Color and pulse Doppler demonstrate normal phasic intraluminal flow. There is normal augmentation response to distal compression maneuver. IMPRESSION: No evidence of deep venous thrombosis. Dictated by: Mu Sullivan M.D. on 05/07/2020 at 12:19 Approved by: Mu Sullivan M.D. on 05/07/2020 at 12:22 MDM Narrative Medical decision making narrative: This is a 69 year female who presents to ED with left lumbar pain without sciatica and right calf pain and swelling. Patient fell gently due to back pain this morning. Wells criteria for DVT score is 0. US for DVT on RLE indicates no evidence of DVT. Lumbar x-ray test result shows no acute osseous abnormalities with moderate multilevel lumbar spondylosis. Patient has intact strength and sensation bilaterally in lower extremities. Pain increases with movements, and changing in position. Urine test not indicating infection. Patient was medicated with Tylenol, Toradol and Lidocaine patch and patient was able to take a nap with improved pain. Unable to medicate patient with muscle relaxant since she drove to ED. patient discharged to home with Flexeril and lidocaine patch and advise continue to use [id number] Tylenol and or Motrin as needed for musculoskeletal low back pain. Patient work off note provided for 2 days. Return precautions were discussed with patient and she verbalized understanding and agreement with the treatment plan. <Angelina Lopez, - Last Filed: 05/12/20 07:23> Lab Data Labs: Urine Dip Bedside Urine Glucose Negative Bedside Urine Bilirubin - Negative Bedside Urine Ketone +++ 80 Urine Specific [place] 1.030 Bedside Urine Occult Blood + Bedside Urine pH 6.0 Bedside Urine Protein +/- 15 Bedside Urine Urobilinogen - Negative Bedside Urine Nitrite - Negative Bedside Urine Leukocytes - Negative Esterase Discharge Plan Departure Patient Disposition: Home Clinical Impression: Pain of right calf Low back pain Qualifiers: Chronicity: acute Back pain laterality: left Sciatica presence: without sciatica Qualified Code(s): M54.5 - Low back pain Discharge Date/Time: 05/07/20 16:58 Instructions: DI for Low Back Pain, DI for Leg Pain Activity Restrictions/Additional Instructions: You have been diagnosed with [left low back pain and right calf pain. X-ray and ultrasound test does not find acute findings.]. What to do: *Take your medications as directed. Please take [id number] Tylenol 650- 1000 mg up to 3 times a day as needed. Ibuprofen 400-600 mg up to 3 times a day as needed for pain with food to decrease GI irritation. Lidocaine patch stays on for 12 hours and off for 12 hours use it as needed for pain. Flexeril for muscle relaxant and this medication can cause drowsiness so please take precaution not driving, drinking alcohol, or operating heavy equipments. This medication have been transmitted to [facility] in [place]. *Follow up with your primary care provider in 2-3 days, call for an appointment. Let them know you were seen in the ED and that we asked you to be seen in follow up. *Return to ED if you have any new, worsening, or concerning symptoms, such as [worsening pain, fever, urinary symptoms, blood in your urine, chest pain, breathing difficulty, unable to tolerate fluids, tingling/numbness/weakness to lower extremities or any acute concerns.]. Prescriptions: New cyclobenzaprine 10 mg tablet 5 - 10 mg PO BID PRN (Reason: muscle spasm) Qty: 10 RF: 0 lidocaine 5 % adhesive patch,medicated 1 patch TOP DAILY PRN (Reason: pain) Qty: 30 RF: 0 No Action ondansetron 8 mg tablet,disintegrating 8 mg PO Q8H PRN (Reason: nausea and vomiting) Qty: 14 RF: 0 meclizine 25 mg tablet 25 mg PO TID Qty: 20 RF: 0 Referrals: Pippa Mera MD [Primary Care Provider] - Stand Alone Forms: Work Release Note <Angelina Lopez DO - Last Filed: 05/12/20 07:23> [facility] Attestation: I was immediately available in the department for consultation. This documentation has been reviewed. Supervised by Angelina Lopez DO
[2020-05-07] MEDS: ACETAMINOPHEN 325 MG TABLET 650 MG PO (14:55)
[2020-05-07] MEDS: KETOROLAC 60 MG/2 ML VIAL 30 MG IM (14:55)
--- NOTE | 2020-05-07 15:11 | DI.RAD.S_ITS ---
PROCEDURE: XR LUMBAR SPINE 2-3V INDICATIONS: left lumbar pain, s/p a gentle fall TECHNIQUE: 3 views of the lumbar spine were acquired. COMPARISON: None. FINDINGS: Bones: 5 [id number]-hqmpsij vertebrae are present. There is normal bony alignment. No acute vertebral body compression fractures. No suspicious bony lesions. Moderate multilevel lumbar spondylosis with severe lower lumbar facet arthropathy. Degenerative changes of the bilateral femoroacetabular joints. Soft tissues: Overlying bowel gas pattern is normal. No suspicious soft tissue calcifications. IMPRESSION: Lumbar spine without acute osseous abnormalities. Moderate multilevel lumbar spondylosis. Dictated by: Julien Morales M.D. on 05/07/2020 at 14:52 Approved by: Julien Morales M.D. on 05/07/2020 at 14:53
== END 2020-05-07 16:58 | disposition home or self-care (01) ==
PROVIDERS: Emergency Provider Nurse Practitioner Family; PCP Family Medicine
DX: M79.604 Pain in right leg (principal); M54.5 Low back pain
CPT/HCPCS: 72100; 81003; 93971; 96372; 99284; J1885

== ENCOUNTER → 2020-05-31 08:41 | Outpatient (CLI) | payer OTHER, SELFPAY ==
[2020-05-31 11:47] LABS: COVID19 -Nasal RAPID Negative (Negative)
== END ==
PROVIDERS: PCP Family Medicine; Visit Provider Physician Assistant
DX: Z11.59 Encounter for screening for other viral diseases (principal)
CPT/HCPCS: 87635

== ENCOUNTER → 2020-06-11 11:36 | Outpatient (CLI) | payer OTHER, SELFPAY ==
--- NOTE | 2020-06-11 | DI.RAD.S_ITS ---
PROCEDURE: XR CHEST 2V INDICATIONS: Cough TECHNIQUE: 2 views of the chest were acquired. COMPARISON: [facility], CR, XR CHEST 1V, 03/07/2020, 10:01. FINDINGS: Surgical changes and devices: None. Lungs and pleura: Lungs are clear. No pleural effusions or pneumothorax. Mediastinum: Mediastinal contours are normal. Heart size is normal. Bones and chest wall: No suspicious bony abnormalities. Soft tissues appear unremarkable. IMPRESSION: No acute disease. Dictated by: Mu Sullivan M.D. on 06/11/2020 at 12:45 Approved by: Mu Sullivan M.D. on 06/11/2020 at 13:07
== END ==
PROVIDERS: PCP Family Medicine; Referring Provider Family Medicine; Visit Provider Family Medicine
DX: R05 Cough (principal)
CPT/HCPCS: 71046

== ENCOUNTER → 2020-08-05 10:02 | Outpatient (CLI) | payer OTHER, SELFPAY ==
[2020-08-05 11:01] LABS: Add Manual Diff / Slide Review NO; Basophils Absolute Auto 0 /uL (0-100); Basophils Percent Auto 0.7 % (0-2); Eosinophils Absolute Auto 100 /uL (0-450); Eosinophils Percent Auto 1.8 % (2-4); Hematocrit 40.7 % (36-46); Hemoglobin 14.1 g/dL (12.0-16.0); Lymphocytes Absolute Auto 1500 /uL (1100-4500); Lymphocytes Percent Auto 23.3 % (25-40); Mean Corpuscular HGB Conc 34.7 % (30-36); Mean Corpuscular Hemoglobin 31.2 PG (26-34); Mean Corpuscular Volume 90.1 fL (80-100); Monocytes Absolute Auto 400 /uL (0-900); Monocytes Percent Auto 6.7 % (3-14); Neutrophils Absolute Auto 4400 /uL (1500-7000); Neutrophils Percent Auto 67.5 % (50-75); Platelet Count 252 X10^3/uL (150-400); Red Blood Cell Count 4.52 X10^6/uL (4.0-5.2); Red Cell Distribution Width 13.2 % (11.6-14.8); White Blood Cell Count 6.6 X10^3/uL (4.5-11.0)
[2020-08-05 11:30] LABS: Erythrocyte Sedimentation Rate 6 MM/HR (0-20)
[2020-08-08 05:49] LABS: Immunoglobulin E 5 IU/mL (6-495)
== END ==
PROVIDERS: PCP Family Medicine; Referring Provider Allergy & Immunology; Visit Provider Allergy & Immunology
DX: R05 Cough (principal)
CPT/HCPCS: 36415; 82785; 85025; 85651

== ENCOUNTER → 2020-11-15 09:23 | Outpatient (CLI) | payer OTHER, SELFPAY ==
[2020-11-15 12:01] LABS: COVID19 -Nasal RAPID Negative (Negative)
== END ==
PROVIDERS: PCP Family Medicine; Visit Provider Student in an Organized Health Care Education/Training Program
DX: Z20.822 Contact with and (suspected) exposure to COVID-19 (principal)
CPT/HCPCS: 87635

== ENCOUNTER → 2020-11-23 08:40 | Outpatient (CLI) | payer OTHER, SELFPAY ==
[2020-11-23 09:04] LABS: COVID19 -Nasal RAPID Negative (Negative)
== END ==
PROVIDERS: PCP Family Medicine; Visit Provider Physician Assistant
DX: Z20.822 Contact with and (suspected) exposure to COVID-19 (principal)
CPT/HCPCS: 87635

== ENCOUNTER → 2020-12-20 07:48 | Outpatient (CLI) | payer OTHER, SELFPAY ==
--- NOTE | 2020-12-20 | DI.ECHO.S_ITS ---
[facility] +---------+ : : [address] [place] [address] : : : : [id number] : : : : Phone: [phone] Echocardiogram Report + + :Name: AL CARBALLO Study Date: 12/20/2020 Height: 60 in : :[facility] ReadingLocation: Weight: 180 lb : : Gender: Female BSA: 1.8 m2 : :: 1950 Age: 70 yrs BP: 208/106 mmHg: :Reason For Study: Murmur : :Ordering Physician: DORITA, : :KRISTIAN Performed By: Alonzo Boyd : :Referring: KRISTIAN KEVIN : + + Interpretation Summary Left ventricular systolic function appears normal with an estimated ejection fraction of 60 to 65% without any focal wall motion abnormality. There is borderline concentric LVH. Diastolic function is likely normal with probable normal filling pressures. The right ventricle appears normal. Right ventricular systolic pressure cannot be estimated but CVP is likely around 3 mmHg. Both atria are normal in size. There is no significant functional valvular abnormality. Procedure: A two-dimensional transthoracic echocardiogram with color flow and Doppler was performed. The study quality was technically adequate. There is no prior echocardiogram noted for this patient. The patient was in sinus rhythm with heart rates between 50-65 bpm during the exam. Left Ventricle: The left ventricle is normal in size. There is borderline concentric left ventricular hypertrophy. Left ventricular systolic function appears normal without focal wall motion abnormalities. The ejection fraction is estimated to be 60-65%. Diastolic parameters suggest a relaxation abnormality of the left ventricle, consistent with probable normal filling pressures. Right Ventricle: The right ventricle is normal in size and function. Atria: Both atria are normal in size. There is no Doppler evidence for an interatrial shunt. Mitral Valve: The mitral valve is normal in structure and function. There is trace mitral regurgitation. Aortic Valve: The aortic valve is normal in structure and function. There is trace aortic regurgitation. Tricuspid Valve: The tricuspid valve is normal in structure and function. There is trace tricuspid regurgitation. Pulmonary artery pressures cannot be estimated because of the lack of a measurable TR jet velocity but the IVC suggests a CVP of around 3 mmHg. Pulmonic Valve: The pulmonic valve is not well visualized. There is trace pulmonic regurgitation. Great Vessels: The aortic root is normal size. The dimensions of the ascending aorta are normal. The IVC is of normal diameter and collapses greater than 50% with a sniff. This suggests a low right atrial pressure of 3 mm Hg. Pericardium/ Pleura There is no pericardial effusion. There is no pleural effusion. MMode/2D Measurements & Calculations LVIDd: 4.9 cm LVOT diam: 1.9 cm LVIDs: 3.2 cm Ao root diam: 3.0 cm FS: 34.7 % asc Aorta Diam: 3.2 cm IVSd: 1.1 cm LVPWd: 1.1 cm LV hoyos. diameter/BSA (cm/m^2): 2.8 LV sys. diameter/BSA (cm/m^2): 1.8 LA A4 area: 15.6 cm2 RA area: 13.5 cm2 LA length (vol): 5.0 cm RVD1 (basal): 2.8 cm Doppler Measurements & Calculations Ao V2 max: 166.8 cm/sec LVOT Max Nolan: 109.5 cm/sec Ao V2 mean: 119.9 cm/sec LV V1 max P.8 mmHg Ao max P.1 mmHg LV V1 VTI: 28.0 cm Ao mean P.3 mmHg ROSE(I,D): 1.9 cm2 Ao V2 VTI: 42.9 cm ROSE(V,D): 1.9 cm2 sev ratio: 0.65 ROSE indexed to BSA (cm^2/m^2): 1.1 MV E max nolan: 85.5 cm/sec TR max nolan: 212.1 cm/sec MV A max nolan: 96.0 cm/sec TR max P.0 mmHg MV E/A: 0.89 PA V2 max: 104.2 cm/sec Med Peak E' Nolan: 8.7 cm/sec PA V2 mean: 74.7 cm/sec E/E' med: 9.8 PA mean P.5 mmHg Lat Peak E' Nolan: 8.6 cm/sec PA pr(Accel): 56.2 mmHg E/E' lat: 9.9 E/e' average: 9.8 MV dec time: 0.23 sec SV(LVOT): 81.6 ml Reading Physician:12:03 PM
== END ==
PROVIDERS: PCP Family Medicine; Referring Provider Family Medicine; Visit Provider Family Medicine
DX: R01.1 Cardiac murmur, unspecified (principal)
CPT/HCPCS: 93306

== ENCOUNTER → 2021-01-12 09:21 | Outpatient (CLI) | payer OTHER, SELFPAY ==
--- NOTE | 2021-01-12 09:22 | DI.MG.S_ITS ---
BILATERAL DIGITAL SCREENING MAMMOGRAM 3D/2D WITH CAD: 01/12/2021 CLINICAL: Routine screening. Family history of breast cancer. Comparison is made to exams dated: 06/14/2017 mammogram and 07/16/2015 mammogram - [facility]. The tissue of both breasts is predominantly fatty. Current study was also evaluated with a Computer Aided Detection (CAD) system. No significant masses, calcifications, or other findings are seen in either breast. There has been no significant interval change. IMPRESSION: NEGATIVE There is no mammographic evidence of malignancy. A 1 year screening mammogram is recommended. This exam was interpreted at Station ID: [id number]. NOTE: For mammograms, a report in lay terms will be sent to the patient. Approximately 15% of breast malignancies will not be visualized mammographically. In the management of a palpable breast mass, a negative mammogram must not discourage biopsy of a clinically suspicious lesion. Electronically Signed By: Hernan dave/deandra:01/12/2021 09:57:47 letter sent: Normal Exam ACR BI-RADS Category 1: Negative [id number]
== END ==
PROVIDERS: PCP Family Medicine; Referring Provider Family Medicine; Visit Provider Family Medicine
DX: Z12.31 Encounter for screening mammogram for malignant neoplasm of breast (principal); M85.852 Other specified disorders of bone density and structure, left thigh; Z80.3 Family history of malignant neoplasm of breast; Z78.0 Asymptomatic menopausal state; Z82.62 Family history of osteoporosis
CPT/HCPCS: 77063; 77067; 77080

== ENCOUNTER → 2021-01-29 09:28 | Outpatient (CLI) | payer OTHER, SELFPAY ==
[2021-01-29 12:02] LABS: COVID19 -Nasal RAPID Negative (Negative)
== END ==
PROVIDERS: PCP Family Medicine; Visit Provider Student in an Organized Health Care Education/Training Program
DX: Z20.822 Contact with and (suspected) exposure to COVID-19 (principal); Z01.812 Encounter for preprocedural laboratory examination
CPT/HCPCS: 87635

== ENCOUNTER 2021-02-20 07:08 | Emergency (ER) | payer OTHER, SELFPAY ==
[2021-02-20 07:15] VITALS: BP 199/87; PULSE 58; RESP 18; TEMP 36.4; O2SAT 99; BMI 34.9
--- NOTE | 2021-02-20 07:34 | ED.URI ---
HPI - URI/Sore Throat General Chief Complaint: Upper Respiratory Symptoms Stated Complaint: Stuffy/deep cough Time Seen by Provider: 02/20/21 07:33 Source: patient Mode of arrival: Ambulatory Limitations: no limitations History of Present Illness HPI Narrative: The patient awoke with a barky cough this morning. She has facial pain. History ear pain or sore throat. She denies fever. She has been on an inhaler in past, but does not have a history asthma. She does have a deviated septum, significant narrowing in the left nose. She use Flonase regularly. She has no chest pain, dyspnea, or palpitations. The cough is nonproductive. She has no orthopnea or peripheral edema. Related Data Previous Rx's Medication Instructions Recorded meclizine 25 mg tablet 25 mg PO TID #20 tab 06/30/19 ondansetron 8 mg disintegrating 8 mg PO Q8H PRN #14 tab 06/30/19 tablet cyclobenzaprine 10 mg tablet 5 - 10 mg PO BID PRN #10 tab 05/07/20 lidocaine 5 % topical patch 1 patch TOP DAILY PRN #30 each 05/07/20 amoxicillin 500 mg capsule 500 mg PO TID 10 Days #30 cap 02/20/21 Allergies Allergy/AdvReac Type Severity Reaction Status Date / Time No Known Drug Allergies Allergy Verified 05/07/20 11:08 Review of Systems Constitutional Constitutional: Reports as per HPI, Reports difficulty sleeping, Denies fatigue, Denies fever(s) and Reports headache(s) Eyes Eyes: Denies change in vision ENT Ears, Nose, Mouth, and Throat: Reports as per HPI, Denies vertigo, Denies dizziness, Denies otalgia, Reports headache(s) and Denies hoarseness Cardiovascular Cardiovascular: Denies chest pain and Denies rapid heart rate Respiratory Respiratory: Denies chest congestion, Reports cough and Denies wheezing Musculoskeletal Comments: No lower extremity edema Neurologic Neurologic: Denies confusion, Denies vertigo, Denies dizziness and Reports headache(s) Psychiatric Psychiatric: Denies confusion Endocrine Endocrine: Denies fatigue Allergic/Immunologic Allergic/Immunologic: Denies wheezing Patient History Medical History Chronic sinusitis Sinusitis Vertigo Social History Smoking Status: Never smoker Smoking Status: Never smoker alcohol intake frequency: holidays/special occasions only Substance Use Type: does not use Exam Initial Vital Signs Initial Vital Signs: Vital Signs Temperature 97.5 F L 02/20/21 07:15 Pulse Rate 58 L 02/20/21 07:15 Respiratory Rate 18 02/20/21 07:15 Blood Pressure 199/87 H 02/20/21 07:15 Pulse Oximetry 99 02/20/21 07:15 Const General: cooperative, healthy appearing, comfortable and other (Barking cough) HENMT Head: normocephalic, atraumatic and other (Left maxillary sinus tenderness.) Ears: TM abnormal (Left TM is bulging with fluid behind the TM.) Nose: nares normal (Deviated septum with left nares narrowing.) Mouth: oral mucosae normal Eyes General: appearance normal, both eyes and all related structures Neck Neck: full ROM and No lymphadenopathy Chest Chest: normal inspection of the chest Resp Effort & Inspection: normal respiratory effort Cardio Rate: regular rate Rhythm: regular rhythm Heart Sounds: S1 normal, S2 normal and no murmurs Skin General: no rashes or lesions noted Neuro General: patient alert, patient awake and patient oriented x3 Extrem General: normal to inspection, full ROM and no pedal edema Psych Appearance: grossly normal Course Orders Ordered: ED Orders 02/20/21 07:24 COVID19 -Nasal swab/Pre-Proc Stat Vital Signs Vital signs: Vital Signs - 8 hr 02/20/21 07:15 02/20/21 07:38 Temperature 97.5 F L Pulse Rate 58 L 63 Respiratory Rate 18 18 Blood Pressure 199/87 H 182/79 H Pulse Oximetry 99 99 MDM - URI/Sore Throat Lab Data Labs: Lab Results 02/20/21 Range/Units 07:24 SARS-CoV-2 (PCR) Negative (Negative) Discharge Plan Departure Patient Disposition: Home Clinical Impression: Chronic left maxillary sinusitis Instructions: DI for Sinusitis Activity Restrictions/Additional Instructions: Continue Flonase as instructed. Mucinex is available [id number], use as per package instructions. Steam your sinuses frequently. Amoxicillin 3 times daily for 10 days. No work for the next 2 days. Follow-up with your PCM symptoms persist. Prescriptions: New amoxicillin 500 mg capsule 500 mg PO TID 10 Days Qty: 30 RF: 0 No Action ondansetron 8 mg tablet,disintegrating 8 mg PO Q8H PRN (Reason: nausea and vomiting) Qty: 14 RF: 0 meclizine 25 mg tablet 25 mg PO TID Qty: 20 RF: 0 cyclobenzaprine 10 mg tablet 5 - 10 mg PO BID PRN (Reason: muscle spasm) Qty: 10 RF: 0 lidocaine 5 % adhesive patch,medicated 1 patch TOP DAILY PRN (Reason: pain) Qty: 30 RF: 0 Referrals: Pippa Mera MD [Primary Care Provider] - Stand Alone Forms: Work Release Note
[2021-02-20 07:38] VITALS: BP 182/79; PULSE 63; RESP 18; O2SAT 99
[2021-02-20 07:55] LABS: COVID19 -Nasal RAPID Negative (Negative)
[2021-02-20 08:00] VITALS: BP 180/74; PULSE 60; RESP 18; O2SAT 99
== END 2021-02-20 08:40 | disposition home or self-care (01) ==
PROVIDERS: Emergency Provider Emergency Medicine; PCP Family Medicine
DX: J32.0 Chronic maxillary sinusitis (principal); Z20.822 Contact with and (suspected) exposure to COVID-19
CPT/HCPCS: 87635; 99281; 99282; C9803

== ENCOUNTER → 2021-03-09 08:48 | Outpatient (CLI) | payer OTHER, SELFPAY ==
[2021-03-09 11:34] LABS: COVID19 -Nasal RAPID Negative (Negative)
== END ==
PROVIDERS: PCP Family Medicine; Visit Provider Physician Assistant
DX: Z20.822 Contact with and (suspected) exposure to COVID-19 (principal)
CPT/HCPCS: 87635

== ENCOUNTER → 2021-04-07 | Outpatient (CLI) | payer OTHER, SELFPAY | PROVIDERS: PCP Family Medicine; Referring Provider Internal Medicine; Visit Provider Internal Medicine | DX: Z23 Encounter for immunization (principal) | CPT/HCPCS: 90471; 90686 ==

== ENCOUNTER 2021-06-24 04:31 | Emergency (ER) | payer MEDICARE, SELFPAY ==
[2021-06-24 04:40] VITALS: BP 189/88; PULSE 78; RESP 18; TEMP 36.2; O2SAT 98
[2021-06-24] MEDS: BACITRACIN OINT 0.9 GM PCKT 1 APPLIC TOP (04:47)
[2021-06-24] MEDS: TET,DIPH,PERTUSS(ACELL),VAC/PF 0.5 ML SYRINGE IM (04:47)
[2021-06-24] MEDS: LIDO 1%/SOD BICARB 8.4% (10ML) 10 ML SYRINGE INJ (04:47)
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
== END 2021-06-24 05:02 | disposition home or self-care (01) ==
PROVIDERS: Emergency Provider Emergency Medicine; PCP Family Medicine
DX: S71.111A Laceration without foreign body, right thigh, initial encounter (principal); Z23 Encounter for immunization; W01.0XXA Fall on same level from slipping, tripping and stumbling without subsequent striking against object, initial encounter
CPT/HCPCS: 12001; 90471; 99282; 99283; 90715

== ENCOUNTER 2021-07-03 13:57 | Emergency (ER) | payer MEDICARE, SELFPAY ==
[2021-07-03 14:20] VITALS: BP 194/96; PULSE 78; RESP 18; TEMP 36.8; O2SAT 99
[2021-07-03 15:10] VITALS: O2SAT 95
[2021-07-03 15:11] VITALS: PULSE 70; O2SAT 95
[2021-07-03 15:14] VITALS: BP 188/77; PULSE 57; O2SAT 100
--- NOTE | 2021-07-03 15:14 | PC.NURSE ---
pt states increased frequency of urination since last night.
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
[2021-07-03 15:40] VITALS: O2SAT 91
== END 2021-07-03 15:46 | disposition home or self-care (01) ==
PROVIDERS: Emergency Provider Emergency Medicine; PCP Family Medicine
DX: Z48.02 Encounter for removal of sutures (principal)
CPT/HCPCS: 81003; 99282

== ENCOUNTER 2022-01-01 18:13 | Emergency (ER) | payer OTHER, SELFPAY ==
[2022-01-01 18:36] VITALS: O2SAT 100
[2022-01-01 18:37] VITALS: BP 207/88; PULSE 58; O2SAT 99
[2022-01-01 18:40] VITALS: PULSE 56; O2SAT 99
[2022-01-01 18:42] VITALS: BP 207/88; PULSE 62; RESP 22; TEMP 36.1; O2SAT 100
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
[2022-01-01 19:01] VITALS: BP 182/81
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
[2022-01-01 20:01] VITALS: BP 183/79
== END 2022-01-01 20:26 | disposition home or self-care (01) ==
PROVIDERS: Emergency Provider Emergency Medicine; PCP Family Medicine
DX: F07.81 Postconcussional syndrome (principal)
CPT/HCPCS: 70450; 72125; 99283

== ENCOUNTER → 2022-03-31 14:46 | Outpatient (CLI) | payer MEDICARE, SELFPAY ==
--- NOTE | 2022-03-31 14:48 | DI.MRI.S_ITS ---
PROCEDURE: MR HEAD/BRAIN WO/W CON INDICATIONS: Mild cognitive impairment, so stated TECHNIQUE: Noncontrast axial T1 spin echo, axial T2 fast spin echo, sagittal and axial FLAIR, coronal T2 fast spin echo, axial gradient echo, axial diffusion and ADC through the brain. After the administration of contrast, axial and coronal and sagittal T1 spin echo with fat saturation through the brain. COMPARISON: [facility], MR, [id number] W&WO CONTRAST, 07/26/2009, 7:43. [facility], CT, CT HEAD/BRAIN WO CON, 01/01/2022, 19:41. FINDINGS: Image quality: This examination is limited by involuntary motion artifact. CSF spaces: Basal cisterns are patent. No extra-axial fluid collections. Ventricles are normal in size and shape. Brain: No midline shift. No intracranial bleeds or masses. No abnormal intracranial enhancement. There is cerebral volume loss for age. There is periventricular white matter chronic small vessel ischemic change. The brainstem appears normal. Diffusion-weighted images demonstrate no acute ischemic insults. No chronic ischemic insults. Normal intravascular flow voids are present. Skull and face: Calvarial marrow is normal in signal. Orbits appear normal. Sinuses: Sinuses and mastoids appear clear. IMPRESSION: Unremarkable intracranial study for age, with note made of brain parenchymal volume loss and chronic small vessel ischemic change. No masses or abnormal enhancement can be seen. Dictated by: Poncho Curry M.D. on 03/31/2022 at 15:15 Approved by: Poncho Curry M.D. on 03/31/2022 at 15:16
== END ==
PROVIDERS: PCP Family Medicine; Referring Provider Family Medicine; Visit Provider Family Medicine
DX: G31.84 Mild cognitive impairment of uncertain or unknown etiology; S06.0X0D Concussion without loss of consciousness, subsequent encounter
CPT/HCPCS: 70553

== ENCOUNTER 2022-04-08 17:32 | Emergency (ER) | payer MEDICARE, SELFPAY ==
[2022-04-08] VITALS (15 sets, daily range): BP systolic 176–225; BP diastolic 62–89; PULSE 47–69; RESP 11–42; TEMP 36.7; O2SAT 97–100; BMI 30.2
[2022-04-08 18:22] LABS: COVID19 -Nasal RAPID Negative (Negative)
--- NOTE | 2022-04-08 20:06 | ED.GENADULT ---
HPI - General Adult General Chief complaint: Hypertension Stated complaint: Dizzy/nausea/sinus issues, high bp Time Seen by Provider: 04/08/22 19:31 Source: patient Mode of arrival: Family Vehicle History of Present Illness HPI narrative: 71-year-old female nonsmoker with history of hypertension presents at the request of her primary care provider for evaluation of dizziness. She states that she had symptoms start yesterday and has been having runny nose, nasal congestion and finds that she becomes profoundly dizzy when she moves her head and states that it seems to improve when she remains still. She denies any recent trauma or injury. She takes no blood thinners and denies any fever or chills. She is had no chest pain, palpitations or shortness of breath. She has had a few episodes of vomiting during the dizzy episodes. She states that she is been taking her medications as directed and her primary care provider has her on blood pressure medications. She denies any diarrhea or urinary complaints such as dysuria, frequency or urgency Related Data Previous Rx's Medication Instructions Recorded meclizine 25 mg tablet 25 mg PO TID Anti vertigo #20 tabs 06/30/19 ondansetron 8 mg disintegrating 8 mg PO Q8H PRN nausea and 06/30/19 tablet vomiting #14 tabs cyclobenzaprine 10 mg tablet 5 - 10 mg PO BID PRN muscle spasm 05/07/20 #10 tabs lidocaine 5 % topical patch 1 patch topical DAILY PRN pain #30 05/07/20 ea meclizine 25 mg tablet 25 mg PO BID-TID PRN dizziness #14 04/08/22 tabs Allergies Allergy/AdvReac Type Severity Reaction Status Date / Time No Known Drug Allergies Allergy Verified 04/08/22 17:47 Review of Systems Review of Systems Narrative: GENERAL: Denies chills, fatigue, malaise, fever, sweats. HEENT: See HPI RESPIRATORY: Denies dyspnea, cough, wheezing, hemoptysis, sputum. CARDIOVASCULAR: Denies chest pain, palpitations, orthopnea, edema, GASTROINTESTINAL: Denies nausea, vomiting, abdominal pain, diarrhea, constipation, melena. : Denies dysuria, frequency, incontinence, hematuria, urinary retention. MUSCULOSKELETAL: denies weakness, joint pain, or bony pain SKIN: Denies rash, skin lesions, or other NEUROLOGIC: See HPI PSYCHIATRIC: No concerning psychosocial issues. 12 point review of systems is negative except for those stated above Patient History Medical History (Updated 04/08/22 @ 22:10 by Jesse Blevins DO) Chronic sinusitis Sinusitis Vertigo Social History Smoking Status: Former smoker Smoking Status: Former smoker tobacco type: cigarettes alcohol intake frequency: holidays/special occasions only Substance Use Type: does not use Exam Narrative Exam Narrative: GENERAL: [71] year old patient appears stated age. Well-developed patient, in mild distress. HEAD: Atraumatic. Normocephalic. EYES: Pupils equal round and reactive. Extraocular motions intact. No scleral icterus. No injection or drainage. ENT: Nose without bleeding, purulent drainage. Throat without erythema, tonsillar hypertrophy or exudate. Airway patent. NECK: Trachea midline. Non tender CARDIOVASCULAR: Regular rate and rhythm without murmurs, gallops, or rubs. RESPIRATORY: Clear to auscultation. Breath sounds equal bilaterally. No wheezes, rales, or rhonchi. GASTROINTESTINAL: Abdomen soft, non-tender, nondistended. EXTREMITIES: No edema or joint tenderness. BACK: Nontender without deformity or crepitance. No flank tenderness. NEURO: AOx3. SKIN: No rash or erythema of visible areas NIH Stroke Scale 1a. LOC: Patient is alert and keenly responsive (0) 1b. LOC Questions: Patient answers both LOC questions accurately (0) 1c. LOC Commands: Patient performs both tasks correctly (0) 2. Best Gaze: Normal (0) 3. Visual: No visual loss (0) 4. Facial palsy: Normal symmetrical movements (0) 5. Motor arm: No drift (0) 6. Motor leg: No drift (0) 7. Limb ataxia: Absent (0) 8. Sensory: Normal (0) 9. Best language: No aphasia; normal (0) 10. Dysarthria: Normal (0) 11. Extinction and inattention: No abnormality (0) NIHSS: 0 Initial Vital Signs Initial Vital Signs: Vital Signs Temperature 98.0 F 04/08/22 17:47 Pulse Rate 58 L 04/08/22 17:47 Respiratory Rate 20 04/08/22 17:47 Blood Pressure 195/85 H 04/08/22 17:47 Pulse Oximetry 100 04/08/22 17:47 Oxygen Delivery Method 04/08/22 17:47 Course Course Course Narrative: Corrina Hallpike test performed and patient has an impressive horizontal nystagmus with fast which to the left when her head is turned to the right. Her nystagmus is reproducible and fatigable. She is taken through the complete Vitaly's maneuver and seems to have some improvement in symptoms. Orders Ordered: ED Orders 04/08/22 17:57 COVID19 -Nasal RAPID/Pre-Proc Stat Discontinued Medications Meclizine HCl (Meclizine Hcl 12.5 Mg Tablet) 50 mg PO NOW ONE Stop: 04/08/22 20:17 Last Admin: 04/08/22 21:07 Dose: 50 mg Documented By: MIKEY Ondansetron HCl (Ondansetron 4 Mg Odt Prepack) 1 bottle MISC SEEINSTR ONE Stop: 04/08/22 20:17 Last Admin: 04/08/22 20:29 Dose: 1 bottle Documented By: VERÓNICA Reevaluation(s) Reevaluation #1: Patient has significant improvement after Vitaly maneuver and administration of meclizine. She ambulates to the department without difficulty. Return precautions discussed and questions answered to her apparent satisfaction, she understands and agrees with the diagnosis and plan and though we discussed a more involved workup including labs and imaging it seems highly unlikely that that would contribute to a different disposition Vital Signs Vital signs: Vital Signs - 8 hr 04/08/22 17:47 04/08/22 19:08 04/08/22 19:09 Temperature 98.0 F Pulse Rate 58 L 69 Respiratory Rate 20 Blood Pressure 195/85 H Pulse Oximetry 100 98 98 Oxygen Delivery Method Room Air 04/08/22 19:09 04/08/22 19:15 04/08/22 19:15 Temperature Pulse Rate 55 L Respiratory Rate 15 Blood Pressure 225/89 H 207/88 H Pulse Oximetry 100 Oxygen Delivery Method 04/08/22 19:30 04/08/22 19:30 04/08/22 19:45 Temperature Pulse Rate 53 L Respiratory Rate 14 Blood Pressure 199/84 H 186/79 H Pulse Oximetry Oxygen Delivery Method 04/08/22 19:45 04/08/22 20:00 04/08/22 20:00 Temperature Pulse Rate 57 L 56 L Respiratory Rate 12 14 Blood Pressure 186/66 H Pulse Oximetry 100 99 Oxygen Delivery Method 04/08/22 20:30 04/08/22 20:33 04/08/22 20:33 Temperature Pulse Rate 52 L 54 L Respiratory Rate 18 18 Blood Pressure 198/84 H Pulse Oximetry 99 99 Oxygen Delivery Method 04/08/22 20:46 04/08/22 20:46 04/08/22 21:00 Temperature Pulse Rate 51 L Respiratory Rate 24 Blood Pressure 183/78 H 178/74 H Pulse Oximetry 99 Oxygen Delivery Method 04/08/22 21:00 04/08/22 21:15 04/08/22 21:15 Temperature Pulse Rate 53 L 47 L Respiratory Rate 19 11 L Blood Pressure 182/77 H Pulse Oximetry 100 99 Oxygen Delivery Method 04/08/22 21:30 04/08/22 21:35 04/08/22 21:35 Temperature Pulse Rate 58 L 50 L Respiratory Rate 29 H 42 H Blood Pressure 184/79 H Pulse Oximetry 97 100 Oxygen Delivery Method 04/08/22 21:45 04/08/22 21:45 Temperature Pulse Rate 54 L Respiratory Rate 14 Blood Pressure 176/62 H Pulse Oximetry 98 Oxygen Delivery Method Medical Decision Making Lab Data Labs: Lab Results 04/08/22 Range/Units 17:57 SARS-CoV-2 (PCR) Negative (Negative) Urine Dip Bedside Urine Glucose Negative Bedside Urine Bilirubin - Negative Bedside Urine Ketone +/- 5 Urine Specific [place] 1.005 Bedside Urine Occult Blood - Negative Bedside Urine pH 6.0 Bedside Urine Protein - Negative Bedside Urine Urobilinogen - Negative Bedside Urine Nitrite - Negative Bedside Urine Leukocytes - Negative Esterase Point of care testing: Urine Dip Bedside Urine Glucose Negative Bedside Urine Bilirubin - Negative Bedside Urine Ketone +/- 5 Urine Specific [place] 1.005 Bedside Urine Occult Blood - Negative Bedside Urine pH 6.0 Bedside Urine Protein - Negative Bedside Urine Urobilinogen - Negative Bedside Urine Nitrite - Negative Bedside Urine Leukocytes - Negative Esterase Discharge Plan Departure Patient Disposition: Home Clinical Impression: Vertigo Instructions: DI for Vertigo Activity Restrictions/Additional Instructions: *You have been diagnosed with [vertigo] *What to do: *Please continue to take your regular medications as directed. [ x] New medication prescriptions sent to your pharmacy: [[facility] ] [ ] New medication written as a paper prescription [ ] No new medications given *Please follow up with your primary care provider in 2-3 days, call for an appointment. Let them know you were seen in the Emergency Department and that we ask that you be seen in follow up. We will electronically transmit a record of today's note if your PCP is in our system *If you do not have a primary care provider please contact the [facility] Resource line at [phone]. They will ask some questions about your medical history and help get you set up with a doctor in the community. *Return to Emergency Department if you should have any new, worsening or concerning symptoms, such as [fever greater than 101 F, shaking chills, worsening pain, persistent vomiting or other bothersome symptoms] Prescriptions: New meclizine 25 mg tablet 25 mg PO BID-TID PRN (Reason: dizziness) Qty: 14 0RF No Action ondansetron 8 mg tablet,disintegrating 8 mg PO Q8H PRN (Reason: nausea and vomiting) Qty: 14 0RF meclizine 25 mg tablet 25 mg PO TID Qty: 20 0RF cyclobenzaprine 10 mg tablet 5 - 10 mg PO BID PRN (Reason: muscle spasm) Qty: 10 0RF lidocaine 5 % adhesive patch,medicated 1 patch TOP DAILY PRN (Reason: pain) Qty: 30 0RF Rx Instructions: leave on most painful area for up to 12 hrs Referrals: Pippa Mera MD [Primary Care Provider] - Visit Report Forms: Patient Portal/API
[2022-04-08] MEDS: ONDANSETRON 4 MG ODT PREPACK 1 BOTTLE MISC (20:29)
[2022-04-08] MEDS: MECLIZINE HCL 12.5 MG TABLET 50 MG PO (21:07)
== END 2022-04-08 22:17 | disposition home or self-care (01) ==
PROVIDERS: Emergency Medicine; Emergency Provider Emergency Medicine; PCP Family Medicine
DX: R42 Dizziness and giddiness (principal); Z20.822 Contact with and (suspected) exposure to COVID-19
CPT/HCPCS: 81003; 87635; 99283; C9803

== ENCOUNTER 2022-06-20 12:07 | Inpatient (IN) | payer MEDICARE, SELFPAY ==
[2022-06-20] VITALS (191 sets, daily range): BP systolic 55–153; BP diastolic 30–82; PULSE 88–160; RESP 12–33; TEMP 28.8–37.1; O2SAT 78–99; BMI 29.3
--- NOTE | 2022-06-20 12:08 | DI.CT.S_ITS ---
PROCEDURE: CT CERVICAL SPINE WO CON INDICATIONS: found down TECHNIQUE: Noncontrast 3 mm thick sections acquired from the skull base to the T4 level. Sagittal and coronal reformats were then constructed. For radiation dose reduction, the following was used: automated exposure control, adjustment of mA and/or kV according to patient size. COMPARISON: None. FINDINGS: Anterolisthesis of C4 on C5 measuring 2 millimeters is likely degenerative. There is associated facet and uncovertebral hypertrophy at this level. No asymmetry of the facets or incongruity of the intervertebral disc space. Otherwise normal alignment. Vertebral body heights maintained. Normal configuration of the craniocervical junction. No suspicious lytic or blastic osseous lesion. Patchy airspace disease in the lung apices. IMPRESSION: No CT evidence of acute traumatic cervical spine injury. Patchy airspace disease in the lung apices. Dictated by: Mitch Laird M.D. on 06/20/2022 at 13:27 Approved by: Mitch Laird M.D. on 06/20/2022 at 13:28
--- NOTE | 2022-06-20 12:08 | DI.CT.S_ITS ---
PROCEDURE: CT CHEST ABD PEL W CON INDICATIONS: found down, hypothermic TECHNIQUE: After the administration of intravenous contrast, 5 mm thick sections acquired from the lung apices to the symphysis. 2.5 mm thick coronal and sagittal reformats were acquired. Additional 7 mm thick coronal maximum intensity projection (MIP) reformats acquired through the lungs. Optional 10-minute delayed imaging may be performed from the kidneys to the bladder. For radiation dose reduction, the following was used: automated exposure control, adjustment of mA and/or kV according to patient size. COMPARISON: [facility], CT, CT HEAD/BRAIN WO CON, 06/20/2022, 12:18. [facility], CT, CT CERVICAL SPINE WO CON, 06/20/2022, 12:18. [facility], CR, XR CHEST 1V, 06/20/2022, 12:30. FINDINGS: Image quality: Excellent. CHEST: Lungs: Multiple foci of scattered infiltrates can be seen. These involve all 5 lobes of the lung. No pulmonary contusions or lacerations. No pneumothorax or hemothorax. Central and peripheral airways appear patent and normal in caliber. Mediastinum: No mediastinal hematomas. Heart size is normal. No pericardial effusion. Thoracic aorta and pulmonary arteries demonstrate normal size and enhancement. No mediastinal or hilar adenopathy. Esophagus is normal in caliber. There is a small hiatal hernia. Chest wall: Scrutiny is given to the right aspect of the mediastinum. No enlarged lymph nodes or other pathologic finding can be seen. A right-sided chest port is seen, with the tip near the cavoatrial junction. No rib fractures. No subcutaneous emphysema. No axillary or supraclavicular adenopathy. Thyroid gland demonstrates no significant abnormality. ABDOMEN: Solid organs: Liver is normal in size and enhancement, without lacerations. Diffuse fatty liver infiltration is noted. Gallbladder wall is not thickened. Biliary system is non-dilated. Pancreas enhances normally, without transection. Spleen is normal in size and enhancement, without lacerations. No adrenal hematomas. Both kidneys enhance normally, without hydronephrosis or lacerations. Peritoneum and bowel: No free fluid or air. Unenhanced bowel loops demonstrate normal wall thickness and caliber. Nodes and vessels: No retroperitoneal or mesenteric adenopathy. Aorta and inferior vena cava are normal in size and enhancement. Miscellaneous: No ventral hernias. PELVIS: Genitourinary: A Vasquez catheter is seen, which decompresses the bladder. The uterus appears normal for age. No adnexal masses are seen. Miscellaneous: No inguinal hernias or adenopathy. Bones: Pelvic ring and hip joints appear intact. No vertebral compression fractures. Age-appropriate bony degenerative changes are seen. Mild dextroconvex scoliotic curvature is seen. IMPRESSION: Multiple scattered bilateral pulmonary infiltrates are seen, which involve all 5 lobes of the lung. These have the appearance an atypical infection. Please consider COVID pneumonia. A follow-up noncontrast chest CT is 4-8 weeks to monitor for resolution into evaluate for any potential underlying pulmonary nodule. No acute posttraumatic abnormality is identified. Normal right mediastinum. The prior chest radiograph appearance is attributed to normal findings from vascular structures. Incidental note is made of: Small hiatal hernia Dextroconvex scoliotic curvature Fatty liver infiltration Vasquez catheter Dictated by: Poncho Curry M.D. on 06/20/2022 at 12:35 Approved by: Poncho Curry M.D. on 06/20/2022 at 12:43
--- NOTE | 2022-06-20 12:09 | DI.CT.S_ITS ---
PROCEDURE: CT HEAD/BRAIN WO CON INDICATIONS: hypothermic found down TECHNIQUE: Noncontrast 4.5 mm thick angled axial sections acquired from the foramen magnum to the vertex, with coronal and sagittal reformats. For radiation dose reduction, the following was used: automated exposure control, adjustment of mA and/or kV according to patient size. COMPARISON: None. FINDINGS: Image quality: Excellent. CSF spaces: Basal cisterns are patent. No extra-axial fluid collections. Ventricles are normal in size and shape. Brain: No midline shift. No intracranial masses or hemorrhage. Thomas-white matter interface is normal. Skull and face: Calvarium and visualized facial bones are intact, without suspicious lesions. Sinuses: Visualized sinuses and mastoids are clear. IMPRESSION: No acute finding. Dictated by: Mitch Laird M.D. on 06/20/2022 at 13:25 Approved by: Mitch Laird M.D. on 06/20/2022 at 13:27
[2022-06-20] MEDS: NOREPINEPHRINE BITARTRATE/D5W 4 MG/250 ML PLAST..BAG 30 MG IV (12:15)
[2022-06-20] MEDS: SODIUM CHLORIDE 0.9% 1,000 ML 150 ML IV (12:15)
[2022-06-20] MEDS: NOREPINEPHRINE BITARTRATE/D5W 4 MG/250 ML PLAST..BAG 15 MG IV (12:15)
--- NOTE | 2022-06-20 12:33 | DI.RAD.S_ITS ---
PROCEDURE: XR CHEST 1V INDICATIONS: right central line TECHNIQUE: One view of the chest was acquired. COMPARISON: [facility], CT, CT CERVICAL SPINE WO CON, 01/01/2022, 19:41. [facility], CR, XR CHEST 2V, 06/11/2020, 11:41. [facility], CR, XR CHEST 1V, 03/07/2020, 10:01. FINDINGS: Surgical changes and devices: There is a right IJ central line with the tip in the inferior aspect of the right atrium. Lungs and pleura: Bilateral perihilar pulmonary infiltrates. No pleural effusions or pneumothorax. Mediastinum: Mediastinal contours appear normal. Heart size is normal. Bones and chest wall: No suspicious bony lesions. Overlying soft tissues appear unremarkable. IMPRESSION: 1. The tip of the IJ central line tip projecting to the area of the right atrium. Recommend repositioning if clinically indicated. 2. Bilateral perihilar infiltrates suspicious for pneumonia. 3. Prominent right hilum, which may be caused by enlarged central vasculature but hilar lymphadenopathy cannot be excluded. Recommend chest CT for follow-up. Dictated by: Caridad Michel M.D. on 06/20/2022 at 12:51 Approved by: Caridad Michel M.D. on 06/20/2022 at 12:54
[2022-06-20 12:48] LABS: Add Manual Diff / Slide Review NO; Basophils Absolute Auto 0 /uL (0-100); Basophils Percent Auto 0.2 % (0-2); Eosinophils Absolute Auto 0 /uL (0-450); Hematocrit 48.4 % (36-46); Lymphocytes Absolute Auto 1200 /uL (1100-4500); Lymphocytes Percent Auto 9.6 % (25-40); Mean Corpuscular HGB Conc 33.1 % (30-36); Mean Corpuscular Hemoglobin 29.5 PG (26-34); Mean Corpuscular Volume 89.2 fL (80-100); Monocytes Absolute Auto 500 /uL (0-900); Monocytes Percent Auto 4.3 % (3-14); Neutrophils Absolute Auto 11000 /uL (1500-7000); Neutrophils Percent Auto 85.9 % (50-75); Platelet Count 390 X10^3/uL (150-400); Red Blood Cell Count 5.43 X10^6/uL (4.0-5.2); Red Cell Distribution Width 12.9 % (11.6-14.8); White Blood Cell Count 12.8 X10^3/uL (4.5-11.0)
--- NOTE | 2022-06-20 12:50 | ED.GENADULT ---
HPI - General Adult General Chief complaint: Unresponsive Stated complaint: hypothermia Time Seen by Provider: 06/20/22 12:07 Source: EMS Mode of arrival: EMS History of Present Illness HPI narrative: Patient is a 71-year-old female with history of vertigo presenting today found down and hypothermic. A neighbor found her on the floor picked her up took her to the bathroom EMS found her on the toilet. She was complaining of constipation and abdominal discomfort but found to be extremely hypothermic. Heat in her house was turned off and it has been very cold the last few days. She is confused there is no evidence of trauma she is noted to be mottled. Not able to give much history. But she is awake, able to follow some commands. Related Data Previous Rx's Medication Instructions Recorded meclizine 25 mg tablet 25 mg PO TID Anti vertigo #20 tabs 06/30/19 ondansetron 8 mg disintegrating 8 mg PO Q8H PRN nausea and 06/30/19 tablet vomiting #14 tabs cyclobenzaprine 10 mg tablet 5 - 10 mg PO BID PRN muscle spasm 05/07/20 #10 tabs lidocaine 5 % topical patch 1 patch topical DAILY PRN pain #30 05/07/20 ea meclizine 25 mg tablet 25 mg PO BID-TID PRN dizziness #14 04/08/22 tabs Allergies Allergy/AdvReac Type Severity Reaction Status Date / Time No Known Drug Allergies Allergy Verified 04/08/22 17:47 Review of Systems Review of Systems ROS Unobtainable: All systems reviewed & are unremarkable except as noted in HPI and below Patient History Medical History (Updated 06/20/22 @ 18:18 by Marielos Arceo DO) Chronic sinusitis HTN (hypertension) Sinusitis Vertigo Surgical History (Updated 06/20/22 @ 18:17 by Jann Edwards DO) No pertinent past surgical history Social History Smoking Status: Former smoker Smoking Status: Former smoker tobacco type: cigarettes alcohol intake frequency: holidays/special occasions only Substance Use Type: does not use Exam Initial Vital Signs Initial Vital Signs: Vital Signs Temperature 84 F L 06/20/22 12:10 Pulse Rate 128 H 06/20/22 12:10 Respiratory Rate 22 06/20/22 12:10 Blood Pressure 55/30 L 06/20/22 12:10 Pulse Oximetry 99 06/20/22 12:10 Oxygen Delivery Method 06/20/22 12:10 Gen.: Alert mottled 71-year-old female moving all extremities HEENT: Head is atraumatic pupils equal round reactive dry mucous membranes Neck: Supple no JVD Lungs: Clear bilaterally no wheezing rales or rhonchi Cardiac: Tachycardic irregular no murmurs Abdomen: Soft nontender nondistended Extremities: Moving all extremities no gross bony deformity Neurologic: Alert and oriented to person and place no cranial nerve deficits SKIN: Cool cyanotic mottled Procedures Central Line Placement Right IJ: Patient Placed on Monitor/Pulse Ox: Yes MD Prep: mask, gown and gloves Central Line Prep: Chlorhexidine scrub and sterile drapes applied Local Anesthetic: lidocaine 1% Amount of anesthesia used (mL): 5 Ultrasound Used for Placement: Yes Central Line Lumen Inserted: triple Post Procedure: sutured in place, good blood return, all ports aspirated, flushed, capped and sterile dressing applied Post Procedure X-Ray: tip of catheter in good position and no pneumothorax seen Patient Tolerated Procedure: Well and No complications Complications: none Course Orders Ordered: ED Orders 06/20/22 12:08 CT cervical spine wo con Stat CT chest abd pel w con Stat 06/20/22 12:09 CT head/brain wo con Stat 06/20/22 12:30 Acetaminophen Stat Complete Blood Count AUTO DIFF Stat Comprehensive Metabolic Panel Stat Ethanol (ETOH) Stat Lactate (Lactic Acid) Stat Lipase Stat Procalcitonin Stat Prothrombin Time INR Stat Salicylate Stat Troponin & CK Cardiac Panel Stat 06/20/22 12:33 Chest [XR chest 1V] Stat 06/20/22 12:45 Blood Culture Stat 06/20/22 13:30 Ictotest Urine Stat Urinalysis and Microscopic Stat Urine Drug Screen, Rapid Stat 06/20/22 13:34 Respiratory Panel (Film Array) Stat 06/20/22 14:27 EKG-12 Lead Routine Acetaminophen (Acetaminophen 325 Mg Tablet) 650 mg PO Q6H PRN PRN Reason: Fever/Mild Pain (1-3) Enoxaparin Sodium (Enoxaparin 40 Mg/0.4 Ml Syringe) 40 mg SUBCUT DAILY DIOMEDES Heparin Sodium (Porcine) (Heparin Flush (Cl/Picc/Mid-Line) 50 Unit/5 Ml Syringe) 50 unit IV PRN PRN PRN Reason: Flush Heparin Sodium (Porcine) (Heparin Flush (Cl/Picc/Mid-Line) 50 Unit/5 Ml Syringe) 50 unit IV BID DIOMEDES Hydromorphone HCl (Hydromorphone 0.5 Mg Inj) 0.5 mg IV Q4H PRN PRN Reason: Pain, Moderate (4-6) Sodium Chloride (Normal Saline 0.9%) 1,000 mls @ 150 mls/hr IV CONT DIOMEDES Last Infusion: 06/20/22 13:27 Dose: 0 mls/hr Documented By: Infusion: 06/20/22 12:50 Dose: 350 mls/hr Documented By: Infusion: 06/20/22 12:15 Dose: 1,000 mls/hr Documented By: Admin: 06/20/22 12:15 Dose: 150 mls/hr Documented By: ANA NOREPINEPHRINE BITARTRATE/D5W (Levophed) 4 mg in 250 mls @ 30 mls/hr IV TITRATE DIOMEDES; Protocol Last Titration: 06/20/22 17:45 Dose: 4 mcg/min, 15 mls/hr Documented By: Titration: 06/20/22 14:27 Dose: 4 mcg/min, 15 mls/hr Documented By: Titration: 06/20/22 13:56 Dose: 1 mcg/min, 3.75 mls/hr Documented By: Titration: 06/20/22 13:41 Dose: 3 mcg/min, 11.25 mls/hr Documented By: Titration: 06/20/22 13:27 Dose: 4 mcg/min, 15 mls/hr Documented By: Titration: 06/20/22 12:30 Dose: 0 mcg/min, 0 mls/hr Documented By: Admin: 06/20/22 12:15 Dose: 8 mcg/min, 30 mls/hr Documented By: ANA Piperacillin Sod/Tazobactam (Sod 3.375 gm/ Sodium Chloride) 100 mls @ 25 mls/hr IV Q8H DIOMEDES Naloxone HCl (Naloxone 0.4 Mg/Ml Vial) 0.2 mg IV Q2MIN PRN PRN Reason: Opiate Reversal Ondansetron HCl (Ondansetron 4 Mg/2 Ml Inj) 4 mg IV Q8HR PRN PRN Reason: Nausea And Vomiting Discontinued Medications Hydromorphone HCl (Hydromorphone 0.5 Mg Inj) 0.5 mg IV NOW ONE Stop: 06/20/22 14:06 Last Admin: 06/20/22 14:12 Dose: 0.5 mg Documented By: SAVANNAH Piperacillin Sod/Tazobactam (Sod 4.5 gm/ Sodium Chloride) 100 mls @ 200 mls/hr IV NOW ONE Stop: 06/20/22 13:23 Last Infusion: 06/20/22 14:29 Dose: 0 mls/hr Documented By: Admin: 06/20/22 13:29 Dose: 200 mls/hr Documented By: SAVANNAH Lactated Ringer's (Lactated Ringers) 1,000 mls @ 1,000 mls/hr IV BOLUS ONE Stop: 06/20/22 14:27 Last Infusion: 06/20/22 14:00 Dose: 0 mls/hr Documented By: Admin: 06/20/22 13:29 Dose: 1,000 mls/hr Documented By: SAVANNAH Lactated Ringer's (Lactated Ringers) 1,000 mls @ 200 mls/hr IV CONT DIOMEDES Last Infusion: 06/20/22 17:45 Dose: 200 mls/hr Documented By: Admin: 06/20/22 14:12 Dose: 200 mls/hr Documented By: SAVANNAH Lorazepam (Lorazepam 2 Mg/Ml Inj) 1 mg IV NOW ONE Stop: 06/20/22 13:23 Last Admin: 06/20/22 13:42 Dose: 1 mg Documented By: SAVANNAH Vital Signs Vital signs: Vital Signs - 8 hr 06/20/22 12:10 06/20/22 12:32 06/20/22 12:34 Temperature 84 F L Pulse Rate 128 H 142 H 142 H Respiratory Rate 22 22 16 Blood Pressure 55/30 L Pulse Oximetry 99 97 99 Oxygen Delivery Method Room Air 06/20/22 12:35 06/20/22 12:35 06/20/22 12:36 Temperature Pulse Rate 129 H 142 H Respiratory Rate 15 15 Blood Pressure 136/63 Pulse Oximetry 97 97 Oxygen Delivery Method 06/20/22 12:38 06/20/22 12:40 06/20/22 12:42 Temperature Pulse Rate 129 H 124 H 151 H Respiratory Rate 15 13 15 Blood Pressure Pulse Oximetry 96 99 98 Oxygen Delivery Method Room Air 06/20/22 13:54 06/20/22 12:44 06/20/22 12:46 Temperature 88.7 F L Pulse Rate 132 H 138 H Respiratory Rate 12 18 Blood Pressure Pulse Oximetry 98 99 Oxygen Delivery Method 06/20/22 12:48 06/20/22 12:50 06/20/22 12:52 Temperature Pulse Rate 129 H 133 H 138 H Respiratory Rate 14 17 18 Blood Pressure Pulse Oximetry 98 98 99 Oxygen Delivery Method 06/20/22 12:54 06/20/22 12:56 06/20/22 12:58 Temperature Pulse Rate 134 H 141 H 141 H Respiratory Rate 17 20 15 Blood Pressure Pulse Oximetry 98 Oxygen Delivery Method 06/20/22 13:00 06/20/22 13:02 06/20/22 13:04 Temperature Pulse Rate 145 H 135 H 139 H Respiratory Rate 16 16 17 Blood Pressure Pulse Oximetry 94 97 98 Oxygen Delivery Method 06/20/22 13:06 06/20/22 13:08 06/20/22 13:10 Temperature Pulse Rate 144 H 152 H 156 H Respiratory Rate 18 16 20 Blood Pressure Pulse Oximetry 98 98 97 Oxygen Delivery Method 06/20/22 13:12 06/20/22 13:14 06/20/22 13:16 Temperature Pulse Rate 133 H 145 H 140 H Respiratory Rate 15 17 18 Blood Pressure Pulse Oximetry 98 97 97 Oxygen Delivery Method 06/20/22 13:18 06/20/22 13:20 06/20/22 13:22 Temperature Pulse Rate 141 H 145 H 133 H Respiratory Rate 12 17 28 H Blood Pressure Pulse Oximetry 98 98 98 Oxygen Delivery Method 06/20/22 13:24 06/20/22 13:26 06/20/22 13:27 Temperature Pulse Rate 144 H 146 H 140 H Respiratory Rate 20 17 17 Blood Pressure Pulse Oximetry 97 97 97 Oxygen Delivery Method 06/20/22 13:27 06/20/22 13:28 06/20/22 13:30 Temperature Pulse Rate 137 H Respiratory Rate 16 Blood Pressure 100/67 108/72 Pulse Oximetry 97 Oxygen Delivery Method 06/20/22 13:30 06/20/22 13:32 06/20/22 13:34 Temperature Pulse Rate 144 H 144 H 136 H Respiratory Rate 14 17 20 Blood Pressure Pulse Oximetry 98 97 97 Oxygen Delivery Method 06/20/22 13:36 06/20/22 13:36 06/20/22 13:38 Temperature Pulse Rate 151 H 141 H Respiratory Rate 26 H 18 Blood Pressure 117/82 Pulse Oximetry 96 98 Oxygen Delivery Method 06/20/22 13:40 06/20/22 13:42 06/20/22 13:44 Temperature Pulse Rate 147 H 149 H Respiratory Rate 17 15 Blood Pressure 128/58 L Pulse Oximetry 98 98 Oxygen Delivery Method 06/20/22 13:44 06/20/22 13:46 06/20/22 13:48 Temperature Pulse Rate 147 H 152 H 148 H Respiratory Rate 17 19 18 Blood Pressure Pulse Oximetry 97 98 97 Oxygen Delivery Method 06/20/22 13:50 06/20/22 13:52 06/20/22 14:26 Temperature 92.4 F L Pulse Rate 160 H 124 H Respiratory Rate 20 21 Blood Pressure Pulse Oximetry 97 97 Oxygen Delivery Method 06/20/22 13:54 06/20/22 13:54 06/20/22 13:56 Temperature Pulse Rate 151 H 153 H Respiratory Rate 20 21 Blood Pressure 131/79 Pulse Oximetry 97 97 Oxygen Delivery Method 06/20/22 13:58 06/20/22 13:59 06/20/22 13:59 Temperature Pulse Rate 149 H 135 H Respiratory Rate 21 17 Blood Pressure 96/54 L Pulse Oximetry 97 97 Oxygen Delivery Method 06/20/22 14:00 06/20/22 14:01 06/20/22 14:01 Temperature Pulse Rate 145 H 148 H Respiratory Rate 17 19 Blood Pressure 102/46 L Pulse Oximetry 97 98 Oxygen Delivery Method 06/20/22 14:02 06/20/22 14:04 06/20/22 14:06 Temperature Pulse Rate 152 H 142 H 147 H Respiratory Rate 19 19 19 Blood Pressure Pulse Oximetry 98 97 97 Oxygen Delivery Method 06/20/22 14:08 06/20/22 14:10 06/20/22 14:12 Temperature Pulse Rate 143 H 134 H 135 H Respiratory Rate 17 18 19 Blood Pressure Pulse Oximetry 97 97 97 Oxygen Delivery Method 06/20/22 14:14 06/20/22 14:16 06/20/22 14:16 Temperature Pulse Rate 136 H 139 H Respiratory Rate 17 15 Blood Pressure 113/53 L Pulse Oximetry 96 97 Oxygen Delivery Method 06/20/22 14:18 12/20/22 14:20 06/20/22 14:22 Temperature Pulse Rate 147 H 139 H 132 H Respiratory Rate 15 19 16 Blood Pressure Pulse Oximetry 97 97 96 Oxygen Delivery Method 06/20/22 14:23 06/20/22 14:23 06/20/22 14:24 Temperature Pulse Rate 144 H 146 H Respiratory Rate 18 16 Blood Pressure 79/45 L Pulse Oximetry 96 95 Oxygen Delivery Method 06/20/22 14:53 06/20/22 14:26 06/20/22 14:28 Temperature 93.5 F L Pulse Rate 145 H Respiratory Rate 20 Blood Pressure 88/51 L Pulse Oximetry 96 Oxygen Delivery Method 06/20/22 14:28 06/20/22 14:30 06/20/22 14:30 Temperature Pulse Rate 141 H 148 H Respiratory Rate 20 17 Blood Pressure 91/54 L Pulse Oximetry 96 95 Oxygen Delivery Method Room Air 06/20/22 14:32 06/20/22 14:34 06/20/22 14:36 Temperature Pulse Rate 138 H 143 H 138 H Respiratory Rate 15 24 20 Blood Pressure Pulse Oximetry 96 95 96 Oxygen Delivery Method 06/20/22 14:37 06/20/22 14:37 06/20/22 14:38 Temperature Pulse Rate 137 H 146 H Respiratory Rate 16 17 Blood Pressure 92/51 L Pulse Oximetry 96 95 Oxygen Delivery Method 06/20/22 14:40 06/20/22 14:42 06/20/22 14:44 Temperature Pulse Rate 140 H 146 H 151 H Respiratory Rate 18 15 16 Blood Pressure Pulse Oximetry 95 96 96 Oxygen Delivery Method 06/20/22 14:46 06/20/22 14:48 06/20/22 14:50 Temperature Pulse Rate 89 90 89 Respiratory Rate 15 14 16 Blood Pressure Pulse Oximetry 96 95 96 Oxygen Delivery Method 06/20/22 14:52 06/20/22 14:52 06/20/22 14:54 Temperature Pulse Rate 90 91 H Respiratory Rate 15 14 Blood Pressure 103/55 L Pulse Oximetry 96 95 Oxygen Delivery Method 06/20/22 14:56 06/20/22 14:58 06/20/22 14:59 Temperature Pulse Rate 90 88 90 Respiratory Rate 15 15 15 Blood Pressure Pulse Oximetry 95 96 96 Oxygen Delivery Method 06/20/22 14:59 06/20/22 15:00 06/20/22 15:00 Temperature Pulse Rate 92 H Respiratory Rate 15 Blood Pressure 101/54 L 98/57 L Pulse Oximetry 95 Oxygen Delivery Method 06/20/22 15:02 Temperature Pulse Rate 91 H Respiratory Rate 15 Blood Pressure Pulse Oximetry 96 Oxygen Delivery Method Medical Decision Making Lab Data Result diagrams: 06/20/22 12:30 06/20/22 12:30 Labs: Lab Results 06/20/22 06/20/22 06/20/22 Range/Units 12:30 12:30 12:30 WBC 12.8 H (4.5-11.0) X10^3/uL RBC 5.43 H (4.0-5.2) X10^6/uL Hgb 16.0 (12.0-16.0) g/dL Hct 48.4 H (36-46) % MCV 89.2 (80-100) fL MCH 29.5 (26-34) PG MCHC 33.1 (30-36) % RDW 12.9 (11.6-14.8) % Plt Count 390 (150-400) X10^3/uL Neut % (Auto) 85.9 H (50-75) % Lymph % (Auto) 9.6 L (25-40) % [place] % (Auto) 4.3 (3-14) % Eos % (Auto) 0.0 L (2-4) % Baso % (Auto) 0.2 (0-2) % Neut # (Auto) 62456 H (8333-6001) /uL Lymph # (Auto) 1200 (4387-7126) /uL [place] # (Auto) 500 (0-900) /uL Eos # (Auto) 0 (0-450) /uL Baso # (Auto) 0 (0-100) /uL PT 13.8 H (10.1-12.7) SECONDS INR 1.2 (0.9-1.3) Sodium 144 (137-145) mmol/L Potassium 3.2 L (3.4-5.1) mmol/L Chloride 104 (98-107) mmol/L Carbon Dioxide 16 L (22-32) mmol/L BUN 44 H (7-17) mg/dL Creatinine 1.77 H (0.52-1.04) mg/dL Estimated GFR 31 L (>60) mL/min BUN/Creatinine Ratio 24.9 H (6-22) Glucose 268 H (80-110) mg/dL Lactate (0.7-2.1) mmol/L Calcium 9.2 (8.4-10.2) mg/dL Total Bilirubin 1.0 (0.2-1.3) mg/dL AST 245 H (14-36) IU/L ALT 100 H (<35) IU/L Alkaline Phosphatase 107 (38-126) U/L Total Creatine Kinase 9473 H (30-135) U/L CK-MB (CK-2) 98.40 H (<2.37) ng/mL CK-MB (CK-2) Rel Index 1.0 L (1.5-5.0) % Troponin I 0.065 H (0.01-0.034) ng/mL Total Protein 6.8 (6.3-8.2) g/dL Albumin 3.5 (3.5-5.0) g/dL Globulin 3.3 (1.7-4.1) g/dL Albumin/Globulin Ratio 1.1 (1.0-2.8) Lipase 71 (23-300) U/L Procalcitonin 0.15 (<0.5) ng/mL Urine Color Urine Appearance Urine pH (4.5-8.0) Ur Specific [place] (1.000-1.035) Urine Protein (Negative) Urine Glucose (UA) (Negative) g/dL Urine Ketones (NEGATIVE) Urine Occult Blood (Negative) Urine Nitrate (Negative) Urine Bilirubin (NEGATIVE) Ur Bilirubin Confirm (Negative) Urine Urobilinogen (0.2) E.U./dL Ur Leukocyte Esterase (NEGATIVE) Urine RBC Urine WBC Urine Bacteria Ur Culture Indicated? Micro UA Comment Salicylates < 1.0 (<20) mg/dL U Opiates 300ng/mL cut (Negative) Ur Oxycodone Screen (Negative) Urine Methadone Screen (Negative) Acetaminophen < 10 (10-30) ug/mL Ur Barbiturates Screen (Negative) U Tricyclic Antidepress (Negative) Ur Phencyclidine Scrn (Negative) Ur Amphetamines Screen (Negative) U Methamphetamines Scrn (Negative) Ur MDMA Scrn (Ecstasy) (Negative) U Benzodiazepines Scrn (Negative) Urine Cocaine Screen (Negative) U Marijuana (THC) Screen (Negative) Ethyl Alcohol < 10 ( - 10) mg/dL Chlamy pneumoniae PCR (Not Detect) Adenovirus (PCR) (Not Detect) B. pertussis DNA (PCR) (Not Detecte) B.parapertussis DNA PCR (Not Detecte) Coronavirus OC43 (PCR) (Not Detect) Coronavirus HKU1 (PCR) (Not Detect) Coronavirus 229E (PCR) (Not Detect) SARS-CoV-2 (PCR) (Not Detecte) Coronavirus NL63 (PCR) (Not Detect) Human Metapneumovir PCR (Not Detect) Influenza Type A (PCR) (Not Detect) Influenza Type B (PCR) (Not Detect) M. pneumoniae (PCR) (Not Detect) Parainfluenza 1 (PCR) (Not Detect) Parainfluenza 2 (PCR) (Not Detect) Parainfluenza 3 (PCR) (Not Detect) Parainfluenza 4 (PCR) (Not Detect) RSV (PCR) (Not Detect) Entero/Rhino (PCR) (Not Detect) 06/20/22 06/20/22 06/20/22 Range/Units 12:30 13:30 13:30 WBC (4.5-11.0) X10^3/uL RBC (4.0-5.2) X10^6/uL Hgb (12.0-16.0) g/dL Hct (36-46) % MCV (80-100) fL MCH (26-34) PG MCHC (30-36) % RDW (11.6-14.8) % Plt Count (150-400) X10^3/uL Neut % (Auto) (50-75) % Lymph % (Auto) (25-40) % [place] % (Auto) (3-14) % Eos % (Auto) (2-4) % Baso % (Auto) (0-2) % Neut # (Auto) (4672-9861) /uL Lymph # (Auto) (5413-5680) /uL [place] # (Auto) (0-900) /uL Eos # (Auto) (0-450) /uL Baso # (Auto) (0-100) /uL PT (10.1-12.7) SECONDS INR (0.9-1.3) Sodium (137-145) mmol/L Potassium (3.4-5.1) mmol/L Chloride (98-107) mmol/L Carbon Dioxide (22-32) mmol/L BUN (7-17) mg/dL Creatinine (0.52-1.04) mg/dL Estimated GFR (>60) mL/min BUN/Creatinine Ratio (6-22) Glucose (80-110) mg/dL Lactate 8.9 H* (0.7-2.1) mmol/L Calcium (8.4-10.2) mg/dL Total Bilirubin (0.2-1.3) mg/dL AST (14-36) IU/L ALT (<35) IU/L Alkaline Phosphatase (38-126) U/L Total Creatine Kinase (30-135) U/L CK-MB (CK-2) (<2.37) ng/mL CK-MB (CK-2) Rel Index (1.5-5.0) % Troponin I (0.01-0.034) ng/mL Total Protein (6.3-8.2) g/dL Albumin (3.5-5.0) g/dL Globulin (1.7-4.1) g/dL Albumin/Globulin Ratio (1.0-2.8) Lipase (23-300) U/L Procalcitonin (<0.5) ng/mL Urine Color Yellow Urine Appearance Clear Urine pH 5.0 (4.5-8.0) Ur Specific [place] 1.025 (1.000-1.035) Urine Protein 2+ H (Negative) Urine Glucose (UA) Trace H (Negative) g/dL Urine Ketones 1+ H (NEGATIVE) Urine Occult Blood 3+ H (Negative) Urine Nitrate Negative (Negative) Urine Bilirubin 2+ H (NEGATIVE) Ur Bilirubin Confirm Negative (Negative) Urine Urobilinogen 1.0 (0.2) E.U./dL Ur Leukocyte Esterase Negative (NEGATIVE) Urine RBC TNP Urine WBC TNP Urine Bacteria TNP Ur Culture Indicated? Cult not indicated Micro UA Comment Salicylates (<20) mg/dL U Opiates 300ng/mL cut Negative (Negative) Ur Oxycodone Screen Negative (Negative) Urine Methadone Screen Negative (Negative) Acetaminophen (10-30) ug/mL Ur Barbiturates Screen Negative (Negative) U Tricyclic Antidepress Negative (Negative) Ur Phencyclidine Scrn Negative (Negative) Ur Amphetamines Screen Negative (Negative) U Methamphetamines Scrn Negative (Negative) Ur MDMA Scrn (Ecstasy) Negative (Negative) U Benzodiazepines Scrn Negative (Negative) Urine Cocaine Screen Negative (Negative) U Marijuana (THC) Screen Negative (Negative) Ethyl Alcohol ( - 10) mg/dL Chlamy pneumoniae PCR (Not Detect) Adenovirus (PCR) (Not Detect) B. pertussis DNA (PCR) (Not Detecte) B.parapertussis DNA PCR (Not Detecte) Coronavirus OC43 (PCR) (Not Detect) Coronavirus HKU1 (PCR) (Not Detect) Coronavirus 229E (PCR) (Not Detect) SARS-CoV-2 (PCR) (Not Detecte) Coronavirus NL63 (PCR) (Not Detect) Human Metapneumovir PCR (Not Detect) Influenza Type A (PCR) (Not Detect) Influenza Type B (PCR) (Not Detect) M. pneumoniae (PCR) (Not Detect) Parainfluenza 1 (PCR) (Not Detect) Parainfluenza 2 (PCR) (Not Detect) Parainfluenza 3 (PCR) (Not Detect) Parainfluenza 4 (PCR) (Not Detect) RSV (PCR) (Not Detect) Entero/Rhino (PCR) (Not Detect) 06/20/22 06/20/22 Range/Units 13:34 14:40 WBC (4.5-11.0) X10^3/uL RBC (4.0-5.2) X10^6/uL Hgb (12.0-16.0) g/dL Hct (36-46) % MCV (80-100) fL MCH (26-34) PG MCHC (30-36) % RDW (11.6-14.8) % Plt Count (150-400) X10^3/uL Neut % (Auto) (50-75) % Lymph % (Auto) (25-40) % [place] % (Auto) (3-14) % Eos % (Auto) (2-4) % Baso % (Auto) (0-2) % Neut # (Auto) (7430-0950) /uL Lymph # (Auto) (3626-0454) /uL [place] # (Auto) (0-900) /uL Eos # (Auto) (0-450) /uL Baso # (Auto) (0-100) /uL PT (10.1-12.7) SECONDS INR (0.9-1.3) Sodium (137-145) mmol/L Potassium (3.4-5.1) mmol/L Chloride (98-107) mmol/L Carbon Dioxide (22-32) mmol/L BUN (7-17) mg/dL Creatinine (0.52-1.04) mg/dL Estimated GFR (>60) mL/min BUN/Creatinine Ratio (6-22) Glucose (80-110) mg/dL Lactate 3.6 H (0.7-2.1) mmol/L Calcium (8.4-10.2) mg/dL Total Bilirubin (0.2-1.3) mg/dL AST (14-36) IU/L ALT (<35) IU/L Alkaline Phosphatase (38-126) U/L Total Creatine Kinase (30-135) U/L CK-MB (CK-2) (<2.37) ng/mL CK-MB (CK-2) Rel Index (1.5-5.0) % Troponin I (0.01-0.034) ng/mL Total Protein (6.3-8.2) g/dL Albumin (3.5-5.0) g/dL Globulin (1.7-4.1) g/dL Albumin/Globulin Ratio (1.0-2.8) Lipase (23-300) U/L Procalcitonin (<0.5) ng/mL Urine Color Urine Appearance Urine pH (4.5-8.0) Ur Specific [place] (1.000-1.035) Urine Protein (Negative) Urine Glucose (UA) (Negative) g/dL Urine Ketones (NEGATIVE) Urine Occult Blood (Negative) Urine Nitrate (Negative) Urine Bilirubin (NEGATIVE) Ur Bilirubin Confirm (Negative) Urine Urobilinogen (0.2) E.U./dL Ur Leukocyte Esterase (NEGATIVE) Urine RBC Urine WBC Urine Bacteria Ur Culture Indicated? Micro UA Comment Salicylates (<20) mg/dL U Opiates 300ng/mL cut (Negative) Ur Oxycodone Screen (Negative) Urine Methadone Screen (Negative) Acetaminophen (10-30) ug/mL Ur Barbiturates Screen (Negative) U Tricyclic Antidepress (Negative) Ur Phencyclidine Scrn (Negative) Ur Amphetamines Screen (Negative) U Methamphetamines Scrn (Negative) Ur MDMA Scrn (Ecstasy) (Negative) U Benzodiazepines Scrn (Negative) Urine Cocaine Screen (Negative) U Marijuana (THC) Screen (Negative) Ethyl Alcohol ( - 10) mg/dL Chlamy pneumoniae PCR Not detected (Not Detect) Adenovirus (PCR) Not detected (Not Detect) B. pertussis DNA (PCR) Not detected (Not Detecte) B.parapertussis DNA PCR Not detected (Not Detecte) Coronavirus OC43 (PCR) Not detected (Not Detect) Coronavirus HKU1 (PCR) Not detected (Not Detect) Coronavirus 229E (PCR) Not detected (Not Detect) SARS-CoV-2 (PCR) Detected H (Not Detecte) Coronavirus NL63 (PCR) Not detected (Not Detect) Human Metapneumovir PCR Not detected (Not Detect) Influenza Type A (PCR) Not detected (Not Detect) Influenza Type B (PCR) Not detected (Not Detect) M. pneumoniae (PCR) Not detected (Not Detect) Parainfluenza 1 (PCR) Not detected (Not Detect) Parainfluenza 2 (PCR) Not detected (Not Detect) Parainfluenza 3 (PCR) Not detected (Not Detect) Parainfluenza 4 (PCR) Not detected (Not Detect) RSV (PCR) Not detected (Not Detect) Entero/Rhino (PCR) Not detected (Not Detect) Imaging Data CT scan - chest: Radiologist's Impression: [place] [id number] CT Scan Report Signed Patient: Edie Rivera MR#: [id number] : 1950 Acct:[id number] Age/Sex: 71 / F Date of Service: 06/20/22 Loc: ED Accession Number: [id number] ?? Procedure: CT chest abd pel w con Ordering Provider: Marielos Arceo D.O. PROCEDURE:? CT CHEST ABD PEL W CON ? INDICATIONS:? found down, hypothermic ? TECHNIQUE:? After the administration of intravenous contrast, 5 mm thick sections acquired from the lung apices to the symphysis.? 2.5 mm thick coronal and sagittal reformats were acquired. ?Additional 7 mm thick coronal maximum intensity projection (MIP) reformats acquired through the lungs.? Optional 10-minute delayed imaging may be performed from the kidneys to the bladder.? For radiation dose reduction, the following was used:? automated exposure control, adjustment of mA and/or kV according to patient size.? ? COMPARISON:? [facility], CT, CT HEAD/BRAIN WO CON, 06/20/2022, 12:18.? [facility], CT, CT CERVICAL SPINE WO CON, 06/20/2022, 12:18.? [facility], CR, XR CHEST 1V, 06/20/2022, 12:30. ? FINDINGS:? Image quality:? Excellent.? ? CHEST:? Lungs:? Multiple foci of scattered infiltrates can be seen.? These involve all 5 lobes of the lung.? No pulmonary contusions or lacerations.? No pneumothorax or hemothorax.? Central and peripheral airways appear patent and normal in caliber.? ? Mediastinum:? No mediastinal hematomas.? Heart size is normal.? No pericardial effusion.? Thoracic aorta and pulmonary arteries demonstrate normal size and enhancement.? No mediastinal or hilar adenopathy.? Esophagus is normal in caliber.? There is a small hiatal hernia.? ? Chest wall:? Scrutiny is given to the right aspect of the mediastinum.? No enlarged lymph nodes or other pathologic finding can be seen.? ? A right-sided chest port is seen, with the tip near the cavoatrial junction.? No rib fractures.? No subcutaneous emphysema.? No axillary or supraclavicular adenopathy.? Thyroid gland demonstrates no significant abnormality.? ? ? ABDOMEN:? Solid organs:? Liver is normal in size and enhancement, without lacerations.? Diffuse fatty liver infiltration is noted.? Gallbladder wall is not thickened.? Biliary system is non-dilated.? Pancreas enhances normally, without transection.? Spleen is normal in size and enhancement, without lacerations.? No adrenal hematomas.? Both kidneys enhance normally, without hydronephrosis or lacerations.? ? Peritoneum and bowel:? No free fluid or air.? Unenhanced bowel loops demonstrate normal wall thickness and caliber.? ? Nodes and vessels:? No retroperitoneal or mesenteric adenopathy.? Aorta and inferior vena cava are normal in size and enhancement.? ? Miscellaneous:? No ventral hernias.? ? ? PELVIS:? Genitourinary:? A Vasquez catheter is seen, which decompresses the bladder.? The uterus appears normal for age.? No adnexal masses are seen.? ? Miscellaneous:? No inguinal hernias or adenopathy.? ? Bones:? Pelvic ring and hip joints appear intact.? No vertebral compression fractures.? ? Age-appropriate bony degenerative changes are seen.? Mild dextroconvex scoliotic curvature is seen.? IMPRESSION:? Multiple scattered bilateral pulmonary infiltrates are seen, which involve all 5 lobes of the lung.? These have the appearance an atypical infection.? Please consider COVID pneumonia.? A follow-up noncontrast chest CT is 4-8 weeks to monitor for resolution into evaluate for any potential underlying pulmonary nodule.? ? No acute posttraumatic abnormality is identified. ? Normal right mediastinum.? The prior chest radiograph appearance is attributed to normal findings from vascular structures. ? ? Incidental note is made of: Small hiatal hernia Dextroconvex scoliotic curvature Fatty liver infiltration Vasquez catheter ? Dictated by: Poncho Curry M.D. on 06/20/2022 at 12:35 ? ? Approved by: Poncho Curry M.D. on 06/20/2022 at 12:43? CT scan - head: Radiologist's Impression: CT Scan Report Signed Patient: Edie Rivera MR#: [id number] : 1950 Acct:[id number] Age/Sex: 71 / F Date of Service: 06/20/22 Loc: ED Accession Number: [id number] ?? Procedure: CT head/brain wo con Ordering Provider: Marielos Arceo D.O. PROCEDURE:? CT HEAD/BRAIN WO CON ? INDICATIONS:? hypothermic found down ? TECHNIQUE:? Noncontrast 4.5 mm thick angled axial sections acquired from the foramen magnum to the vertex, with coronal and sagittal reformats.? For radiation dose reduction, the following was used:? automated exposure control, adjustment of mA and/or kV according to patient size.? ? COMPARISON:? None. ? FINDINGS:? Image quality:? Excellent.? ? CSF spaces:? Basal cisterns are patent.? No extra-axial fluid collections.? Ventricles are normal in size and shape.? ? Brain:? No midline shift.? No intracranial masses or hemorrhage.? Thomas-white matter interface is normal.? ? Skull and face:? Calvarium and visualized facial bones are intact, without suspicious lesions.? ? Sinuses:? Visualized sinuses and mastoids are clear.? ? IMPRESSION:? No acute finding. ? ? Dictated by: Mitch Laird M.D. on 06/20/2022 at 13:25 ? ? Approved by: Mitch Laird M.D. on 06/20/2022 at 13:27 ? Chest x-ray: Radiologist's Impression: [email or web address] [id number] XRay Report Signed Patient: Edie Rivera MR#: [id number] : 1950 Acct:[id number] Age/Sex: 71 / F Date of Service: 06/20/22 Loc: ED Accession Number: [id number] ?? Procedure: XR chest 1V Ordering Provider: Marielos Arceo D.O. PROCEDURE:? XR CHEST 1V ? INDICATIONS:? right central line ? TECHNIQUE:? One view of the chest was acquired.? ? COMPARISON:? [facility], CT, CT CERVICAL SPINE WO CON, 01/01/2022, 19:41.? [facility], CR, XR CHEST 2V, 06/11/2020, 11:41.? [facility], CR, XR CHEST 1V, 03/07/2020, 10:01. ? FINDINGS:? ? Surgical changes and devices:? There is a right IJ central line with the tip in the inferior aspect of the right atrium.? ? Lungs and pleura:? Bilateral perihilar pulmonary infiltrates.? No pleural effusions or pneumothorax.? ? Mediastinum:? Mediastinal contours appear normal.? Heart size is normal.? ? Bones and chest wall:? No suspicious bony lesions.? Overlying soft tissues appear unremarkable.? ? IMPRESSION:? ? 1. The tip of the IJ central line tip projecting to the area of the right atrium.? Recommend repositioning if clinically indicated. 2. Bilateral perihilar infiltrates suspicious for pneumonia. 3. Prominent right hilum, which may be caused by enlarged central vasculature but hilar lymphadenopathy cannot be excluded.? Recommend chest CT for follow-up.? ? ? Dictated by: Caridad Michel M.D. on 06/20/2022 at 12:51 ? ? ECG Data Interpretation: Atrial fibrillation rate [address] changes no delta wave, new from previous EKGs MDM Narrative Medical decision making narrative: Patient 71-year-old female found down in hypothermic in her home. Her house was found without any heat. She is cool and mottled awake and talking. But difficult to get a blood pressure. Levophed was started initially on central line was placed. There is no evidence of trauma. She is actively rewarmed Vasquez catheter is placed She has full body scan no evidence of head injury. CT chest abdomen pelvis does show probable bilateral multiple pulmonary infiltrates. She is also found to be COVID positive but is not actually hypoxic and protecting her airway. She is leukocytosis of 12. Her lactate is noted to be 8.9, which did improve with fluids, but her procalcitonin is negative. She is given a dose of Zosyn prophylactically. She is also found to have rhabdomyolysis with a CPK 9000. She warmed up her atrial fibrillation with RVR actually converted into sinus rhythm. She is becoming more alert. Patient's son is called [phone] has a voice mailbox is full. Levophed was able to be weaned off as she warmed and as fluids got going. She got 1 dose of Dilaudid blood pressure dropped again and Levophed was restarted. Dr. Edwards accepts patient Not sure why patient's house is so cold questionable cognitive issues possible early dementia versus social issues. Critical Care Time Critical Care Time Critical Care Time: Yes Total Critical Care Time: 45 Attestation: The high probability of a clinically significant, sudden or life threatening deterioration of the [cardiovascular] system(s) required my full and direct attention, intervention and personal management. The aggregate critical care time was [45] minutes. This time is in addition to time spent performing reported procedures but includes the following: [x] Data Review and interpretation [x] Patient assessment and monitoring of vital signs [x] Documentation [x] Medication orders and management Discharge Plan Departure Patient Disposition: Admitted As Inpatient Clinical Impression: Hypothermia, COVID-19, Rhabdomyolysis, Atrial fibrillation Admit Date/Time: 06/20/22 15:02 Admit Provider: Jann Edwards
[2022-06-20 13:04] LABS: Acetaminophen < 10 ug/mL (10-30); Albumin 3.5 g/dL (3.5-5.0); Albumin Globulin Ratio 1.1 (1.0-2.8); Alkaline Phosphatase 107 U/L (38-126); BUN Creatinine Ratio 24.9 (6-22); Blood Urea Nitrogen 44 mg/dL (7-17); Calcium 9.2 mg/dL (8.4-10.2); Carbon Dioxide 16 mmol/L (22-32); Chloride 104 mmol/L (98-107); Estimated Glomerular Filt Rate 31 mL/min (>60); Ethanol (ETOH) < 10 mg/dL; Globulin 3.3 g/dL (1.7-4.1); Glucose 268 mg/dL (80-110); HEMOLYSIS < 15 (0-50); Lipase 71 U/L (23-300); Potassium 3.2 mmol/L (3.4-5.1); Salicylate < 1.0 mg/dL (<20); Sodium 144 mmol/L (137-145); Total Protein 6.8 g/dL (6.3-8.2)
[2022-06-20 13:10] LABS: Aspartate Aminotransferase 245 IU/L (14-36)
[2022-06-20 13:14] LABS: Alanine Aminotransferase 100 IU/L (<35); INR 1.2 (0.9-1.3); Prothrombin Time 13.8 SECONDS (10.1-12.7)
[2022-06-20 13:15] LABS: Troponin I 0.065 ng/mL (0.01-0.034)
[2022-06-20 13:17] LABS: Lactate (Lactic Acid) 8.9 mmol/L (0.7-2.1)
[2022-06-20 13:20] LABS: Procalcitonin 0.15 ng/mL (<0.5)
[2022-06-20] MEDS: LACTATED RINGERS 1,000 ML 1000 ML IV (13:29)
[2022-06-20] MEDS: PIPERACILLIN/TAZO 4.5 GM in SODIUM CHLORIDE 0.9% 100 ML IV (13:29)
[2022-06-20] MEDS: LORazepam 2 MG/ML INJ 1 MG IV (13:42)
[2022-06-20 13:46] LABS: Creatine Kinase 9473 U/L (30-135)
[2022-06-20 13:54] LABS: Appearance Urine UA CLEAR; Bilirubin Urine UA 2+ (NEGATIVE); Color Urine UA YELLOW; Glucose Urine UA TRACE g/dL (Negative); Ketones Urine UA 1+ (NEGATIVE); Leukocyte Esterase Urine UA NEGATIVE (NEGATIVE); Nitrite Urine UA NEGATIVE (Negative); Occult Blood Urine UA 3+ (Negative); Protein Urine UA 2+ (Negative); Specific Gravity Urine UA 1.025 (1.000-1.035)
[2022-06-20 14:02] LABS: Ictotest Urine Negative (Negative); UR Morphine/Opiate cutoff 300 Negative (Negative); Ur Creatinine Normal (Normal); Ur Specific Gravity Normal (Normal); Urine Amphetamines Negative (Negative); Urine Barbiturates Negative (Negative); Urine Benzodiazepines Negative (Negative); Urine Cocaine Negative (Negative); Urine MDMA Negative (Negative); Urine Methadone Negative (Negative); Urine Methamphetamines Negative (Negative); Urine Oxycodone Negative (Negative); Urine Phencyclidine Negative (Negative); Urine Tetrahydrocannabinol Negative (Negative); Urine Tricyclic Antidepressant Negative (Negative); Urine pH Normal (Normal)
[2022-06-20 14:03] LABS: Culture Indicated Urine Cult Not Indicated
[2022-06-20] MEDS: LACTATED RINGERS 1,000 ML 200 ML IV (14:12)
[2022-06-20] MEDS: HYDROMORPHONE 0.5 MG INJ IV (14:12)
[2022-06-20 14:37] LABS: Adenovirus Not Detected (Not Detect); B. parapertussis Not Detected (Not Detecte); Bordetella pertussis Not Detected (Not Detecte); Chlamydophila pneumoniae Not Detected (Not Detect); Coronavirus 229E Not Detected (Not Detect); Coronavirus HKU1 Not Detected (Not Detect); Coronavirus NL 63 Not Detected (Not Detect); Coronavirus OC43 Not Detected (Not Detect); Human Metapneumovirus Not Detected (Not Detect); Human Rhinovirus/Enterovirus Not Detected (Not Detect); Influenza A Not Detected (Not Detect); Influenza B Not Detected (Not Detect); Mycoplasma pneumoniae Not Detected (Not Detect); Parainfluenza Virus 1 Not Detected (Not Detect); Parainfluenza Virus 2 Not Detected (Not Detect); Parainfluenza Virus 3 Not Detected (Not Detect); Parainfluenza Virus 4 Not Detected (Not Detect); Respiratory Syncytial Virus Not Detected (Not Detect); SARS- CoV-2 Detected (Not Detecte)
[2022-06-20 14:43] LABS: Reflexed Lactate in 2 Hours Y
--- NOTE | 2022-06-20 14:43 | PC.NURSE ---
Pt currently A&Ox1. Pt understands who she is, but [place] and thinks the month is April. Pt is unable to remember what events led her to coming to the emergency room. Pt currently following commands and reports feeling warmer. Pt core temp currently up to 93.1. Bear hugger is on and fluid warmer running. Pt has a rectal temperature device in place. Norepi restarted at 4mcg/min for SBP of 79. Dr. Arceo made aware. Continuing to titrate according to protocol. Urine output increasing as well. Will continue to re-orient and assess for any changes.
--- NOTE | 2022-06-20 14:55 | PC.NURSE ---
Lungs sounds diminished bilaterally, irregular heart rate auscultated. Pt's fingers and toes pink and blanchable. Vasquez draining juanjose urine.
[2022-06-20 15:08] LABS: Lactate 2HR (Lactic Acid Rflx) 3.6 mmol/L (0.7-2.1)
--- NOTE | 2022-06-20 18:14 | P.HP_ITS ---
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 this patient's care today; this time is exclusive of procedural time. Quality MIPS - Admit I confirm the patient?s Advance Care Plan is present, Code status is documented, Surrogate decision maker is in patient?s record [If Yes, STOP here]: Yes
[2022-06-20 19:01] LABS: RBC Urine 0-1/HPF (0-5/HPF); WBC Urine 5-10/HPF (0-5/HPF)
[2022-06-20 19:02] LABS: Bacteria Urine Few (2-10); Culture Indicated Urine Specimen Cultured; Squamous Epithelial Cell Urine 0-1 /HPF (0-5/HPF); Transitional Epi Cells Urine 0-1/HPF (0-5/HPF)
[2022-06-20 19:06] LABS: Alanine Aminotransferase 97 IU/L (<35); Albumin 2.7 g/dL (3.5-5.0); Albumin Globulin Ratio 0.9 (1.0-2.8); Alkaline Phosphatase 85 U/L (38-126); Aspartate Aminotransferase 358 IU/L (14-36); BUN Creatinine Ratio 34.4 (6-22); Bilirubin Total 1.1 mg/dL (0.2-1.3); Blood Urea Nitrogen 45 mg/dL (7-17); Calcium 8.6 mg/dL (8.4-10.2); Carbon Dioxide 27 mmol/L (22-32); Chloride 105 mmol/L (98-107); Estimated Glomerular Filt Rate 44 mL/min (>60); Glucose 88 mg/dL (80-110); HEMOLYSIS < 15 (0-50); Sodium 143 mmol/L (137-145); Total Protein 5.7 g/dL (6.3-8.2)
[2022-06-20 19:10] LABS: Add Manual Diff / Slide Review NO; Basophils Absolute Auto 100 /uL (0-100); Basophils Percent Auto 0.4 % (0-2); Eosinophils Absolute Auto 0 /uL (0-450); Hematocrit 43.1 % (36-46); Hemoglobin 14.8 g/dL (12.0-16.0); Lymphocytes Absolute Auto 1100 /uL (1100-4500); Lymphocytes Percent Auto 5.5 % (25-40); Mean Corpuscular HGB Conc 34.4 % (30-36); Mean Corpuscular Volume 87.4 fL (80-100); Monocytes Absolute Auto 1700 /uL (0-900); Monocytes Percent Auto 8.8 % (3-14); Neutrophils Absolute Auto 16400 /uL (1500-7000); Neutrophils Percent Auto 85.3 % (50-75); Platelet Count 376 X10^3/uL (150-400); Red Blood Cell Count 4.94 X10^6/uL (4.0-5.2); Red Cell Distribution Width 13.2 % (11.6-14.8); White Blood Cell Count 19.2 X10^3/uL (4.5-11.0)
--- NOTE | 2022-06-20 19:11 | P.TELICUCN_ITS ---
History of Present Illness Consult details IF CAMERA ACTIVATED, patient seen via real-time interactive audiovisual communication: Camera activated Chief complaint: hypothermia Consent obtained for tele-parimutuel cashier care: Yes Patient Location: ICU Provider location (State): [place] Other participants/roles: Dr. Edwards [facility] Medical History (Updated 06/20/22 @ 18:18 by Marielos Arceo DO) Chronic sinusitis HTN (hypertension) Sinusitis Vertigo Surgical History (Updated 06/20/22 @ 18:17 by Jann Edwards DO) No pertinent past surgical history Social History Smoking Status: Former smoker Current Medications Current Medications Medications: Home Medications meclizine 25 mg tablet 25 mg PO TID Anti vertigo #20 tabs 06/30/19 [Rx] ondansetron 8 mg disintegrating tablet 8 mg PO Q8H PRN nausea and vomiting #14 tabs 06/30/19 [Rx] cyclobenzaprine 10 mg tablet 5 - 10 mg PO BID PRN muscle spasm #10 tabs 05/07/20 [Rx] lidocaine 5 % topical patch 1 patch topical DAILY PRN pain #30 ea 05/07/20 [Rx] meclizine 25 mg tablet 25 mg PO BID-TID PRN dizziness #14 tabs 04/08/22 [Rx] hydrochlorothiazide 12.5 mg tablet 12.5 mg PO DAILY 06/20/22 [History Confirmed 06/20/22] losartan 100 mg tablet 100 mg PO DAILY 06/20/22 [History Confirmed 06/20/22] Visit Medications (administered) Generic Name Dose Route Start Last Admin Trade Name Freq PRN Reason Stop Dose Admin Sodium Chloride 1,000 mls @ 150 mls/hr 06/20/22 12:15 06/20/22 13:27 Normal Saline 0.9% IV Infused CONT DIOMEDES Infusion NOREPINEPHRINE BITARTRATE/D5W 4 mg in 250 mls @ 30 mls/hr 06/20/22 13:00 06/20/22 17:45 Levophed IV 4 mcg/min TITRATE DIOMEDES 15 mls/hr Titration Protocol 8 MCG/MIN Exam Vital Signs (past 8 hours): - 06/20/22 12:10 06/20/22 12:32 06/20/22 12:34 Temperature 84 F L Pulse Rate 128 H 142 H 142 H Respiratory Rate 22 22 16 Blood Pressure 55/30 L Pulse Oximetry 99 97 99 Oxygen Delivery Method Room Air 06/20/22 12:35 06/20/22 12:35 06/20/22 12:36 Temperature Pulse Rate 129 H 142 H Respiratory Rate 15 15 Blood Pressure 136/63 Pulse Oximetry 97 97 Oxygen Delivery Method 06/20/22 12:38 06/20/22 12:40 06/20/22 12:42 Temperature Pulse Rate 129 H 124 H 151 H Respiratory Rate 15 13 15 Blood Pressure Pulse Oximetry 96 99 98 Oxygen Delivery Method Room Air 06/20/22 13:54 06/20/22 12:44 06/20/22 12:46 Temperature 88.7 F L Pulse Rate 132 H 138 H Respiratory Rate 12 18 Blood Pressure Pulse Oximetry 98 99 Oxygen Delivery Method 06/20/22 12:48 06/20/22 12:50 06/20/22 12:52 Temperature Pulse Rate 129 H 133 H 138 H Respiratory Rate 14 17 18 Blood Pressure Pulse Oximetry 98 98 99 Oxygen Delivery Method 06/20/22 12:54 06/20/22 12:56 06/20/22 12:58 Temperature Pulse Rate 134 H 141 H 141 H Respiratory Rate 17 20 15 Blood Pressure Pulse Oximetry 98 Oxygen Delivery Method 06/20/22 13:00 06/20/22 13:02 06/20/22 13:04 Temperature Pulse Rate 145 H 135 H 139 H Respiratory Rate 16 16 17 Blood Pressure Pulse Oximetry 94 97 98 Oxygen Delivery Method 06/20/22 13:06 06/20/22 13:08 06/20/22 13:10 Temperature Pulse Rate 144 H 152 H 156 H Respiratory Rate 18 16 20 Blood Pressure Pulse Oximetry 98 98 97 Oxygen Delivery Method 06/20/22 13:12 06/20/22 13:14 06/20/22 13:16 Temperature Pulse Rate 133 H 145 H 140 H Respiratory Rate 15 17 18 Blood Pressure Pulse Oximetry 98 97 97 Oxygen Delivery Method 06/20/22 13:18 06/20/22 13:20 06/20/22 13:22 Temperature Pulse Rate 141 H 145 H 133 H Respiratory Rate 12 17 28 H Blood Pressure Pulse Oximetry 98 98 98 Oxygen Delivery Method 06/20/22 13:24 06/20/22 13:26 06/20/22 13:27 Temperature Pulse Rate 144 H 146 H 140 H Respiratory Rate 20 17 17 Blood Pressure Pulse Oximetry 97 97 97 Oxygen Delivery Method 06/20/22 13:27 06/20/22 13:28 06/20/22 13:30 Temperature Pulse Rate 137 H Respiratory Rate 16 Blood Pressure 100/67 108/72 Pulse Oximetry 97 Oxygen Delivery Method 06/20/22 13:30 06/20/22 13:32 06/20/22 13:34 Temperature Pulse Rate 144 H 144 H 136 H Respiratory Rate 14 17 20 Blood Pressure Pulse Oximetry 98 97 97 Oxygen Delivery Method 06/20/22 13:36 06/20/22 13:36 06/20/22 13:38 Temperature Pulse Rate 151 H 141 H Respiratory Rate 26 H 18 Blood Pressure 117/82 Pulse Oximetry 96 98 Oxygen Delivery Method 06/20/22 13:40 06/20/22 13:42 06/20/22 13:44 Temperature Pulse Rate 147 H 149 H Respiratory Rate 17 15 Blood Pressure 128/58 L Pulse Oximetry 98 98 Oxygen Delivery Method 06/20/22 13:44 06/20/22 13:46 06/20/22 13:48 Temperature Pulse Rate 147 H 152 H 148 H Respiratory Rate 17 19 18 Blood Pressure Pulse Oximetry 97 98 97 Oxygen Delivery Method 06/20/22 13:50 06/20/22 13:52 06/20/22 14:26 Temperature 92.4 F L Pulse Rate 160 H 124 H Respiratory Rate 20 21 Blood Pressure Pulse Oximetry 97 97 Oxygen Delivery Method 06/20/22 13:54 06/20/22 13:54 06/20/22 13:56 Temperature Pulse Rate 151 H 153 H Respiratory Rate 20 21 Blood Pressure 131/79 Pulse Oximetry 97 97 Oxygen Delivery Method 06/20/22 13:58 06/20/22 13:59 06/20/22 13:59 Temperature Pulse Rate 149 H 135 H Respiratory Rate 21 17 Blood Pressure 96/54 L Pulse Oximetry 97 97 Oxygen Delivery Method 06/20/22 14:00 06/20/22 14:01 06/20/22 14:01 Temperature Pulse Rate 145 H 148 H Respiratory Rate 17 19 Blood Pressure 102/46 L Pulse Oximetry 97 98 Oxygen Delivery Method 06/20/22 14:02 06/20/22 14:04 06/20/22 14:06 Temperature Pulse Rate 152 H 142 H 147 H Respiratory Rate 19 19 19 Blood Pressure Pulse Oximetry 98 97 97 Oxygen Delivery Method 06/20/22 14:08 06/20/22 14:10 06/20/22 14:12 Temperature Pulse Rate 143 H 134 H 135 H Respiratory Rate 17 18 19 Blood Pressure Pulse Oximetry 97 97 97 Oxygen Delivery Method 06/20/22 14:14 06/20/22 14:16 06/20/22 14:16 Temperature Pulse Rate 136 H 139 H Respiratory Rate 17 15 Blood Pressure 113/53 L Pulse Oximetry 96 97 Oxygen Delivery Method 06/20/22 14:18 06/20/22 14:20 06/20/22 14:22 Temperature Pulse Rate 147 H 139 H 132 H Respiratory Rate 15 19 16 Blood Pressure Pulse Oximetry 97 97 96 Oxygen Delivery Method 06/20/22 14:23 06/20/22 14:23 06/20/22 14:24 Temperature Pulse Rate 144 H 146 H Respiratory Rate 18 16 Blood Pressure 79/45 L Pulse Oximetry 96 95 Oxygen Delivery Method 06/20/22 14:53 06/20/22 14:26 06/20/22 14:28 Temperature 93.5 F L Pulse Rate 145 H Respiratory Rate 20 Blood Pressure 88/51 L Pulse Oximetry 96 Oxygen Delivery Method 06/20/22 14:28 06/20/22 14:30 06/20/22 14:30 Temperature Pulse Rate 141 H 148 H Respiratory Rate 20 17 Blood Pressure 91/54 L Pulse Oximetry 96 95 Oxygen Delivery Method Room Air 06/20/22 14:32 06/20/22 14:34 06/20/22 14:36 Temperature Pulse Rate 138 H 143 H 138 H Respiratory Rate 15 24 20 Blood Pressure Pulse Oximetry 96 95 96 Oxygen Delivery Method 06/20/22 14:37 06/20/22 14:37 06/20/22 14:38 Temperature Pulse Rate 137 H 146 H Respiratory Rate 16 17 Blood Pressure 92/51 L Pulse Oximetry 96 95 Oxygen Delivery Method 06/20/22 14:40 06/20/22 14:42 06/20/22 14:44 Temperature Pulse Rate 140 H 146 H 151 H Respiratory Rate 18 15 16 Blood Pressure Pulse Oximetry 95 96 96 Oxygen Delivery Method 06/20/22 14:46 06/20/22 14:48 06/20/22 14:50 Temperature Pulse Rate 89 90 89 Respiratory Rate 15 14 16 Blood Pressure Pulse Oximetry 96 95 96 Oxygen Delivery Method 06/20/22 14:52 06/20/22 14:52 06/20/22 14:54 Temperature Pulse Rate 90 91 H Respiratory Rate 15 14 Blood Pressure 103/55 L Pulse Oximetry 96 95 Oxygen Delivery Method 06/20/22 14:56 06/20/22 14:58 06/20/22 14:59 Temperature Pulse Rate 90 88 90 Respiratory Rate 15 15 15 Blood Pressure Pulse Oximetry 95 96 96 Oxygen Delivery Method 06/20/22 14:59 06/20/22 15:00 06/20/22 15:00 Temperature Pulse Rate 92 H Respiratory Rate 15 Blood Pressure 101/54 L 98/57 L Pulse Oximetry 95 Oxygen Delivery Method 06/20/22 15:02 06/20/22 15:04 06/20/22 15:06 Temperature Pulse Rate 91 H 91 H Respiratory Rate 15 16 Blood Pressure 105/57 L Pulse Oximetry 96 95 Oxygen Delivery Method 06/20/22 15:06 06/20/22 15:08 06/20/22 15:10 Temperature Pulse Rate 91 H 91 H 91 H Respiratory Rate 14 15 16 Blood Pressure Pulse Oximetry 95 95 96 Oxygen Delivery Method 06/20/22 15:12 06/20/22 15:14 06/20/22 15:15 Temperature Pulse Rate 92 H 92 H 93 H Respiratory Rate 16 14 15 Blood Pressure Pulse Oximetry 95 95 95 Oxygen Delivery Method 06/20/22 15:15 06/20/22 15:16 06/20/22 15:18 Temperature Pulse Rate 93 H 93 H Respiratory Rate 17 16 Blood Pressure 117/56 L Pulse Oximetry 95 95 Oxygen Delivery Method 06/20/22 15:20 06/20/22 15:22 06/20/22 15:24 Temperature Pulse Rate 93 H 93 H 93 H Respiratory Rate 16 16 15 Blood Pressure Pulse Oximetry 95 96 95 Oxygen Delivery Method 06/20/22 15:26 06/20/22 15:28 06/20/22 15:30 Temperature Pulse Rate 93 H 93 H Respiratory Rate 15 15 Blood Pressure 99/55 L Pulse Oximetry 95 95 Oxygen Delivery Method 06/20/22 15:30 06/20/22 15:32 06/20/22 15:34 Temperature Pulse Rate 93 H 94 H 95 H Respiratory Rate 15 16 16 Blood Pressure Pulse Oximetry 96 95 95 Oxygen Delivery Method 06/20/22 15:36 06/20/22 15:38 06/20/22 15:40 Temperature 95.2 F L Pulse Rate 94 H 95 H 95 H Respiratory Rate 16 16 15 Blood Pressure Pulse Oximetry 95 95 95 Oxygen Delivery Method 06/20/22 15:42 06/20/22 15:44 06/20/22 15:45 Temperature Pulse Rate 93 H 94 H Respiratory Rate 14 14 Blood Pressure 113/57 L Pulse Oximetry 95 95 Oxygen Delivery Method 06/20/22 15:45 06/20/22 15:46 06/20/22 15:48 Temperature Pulse Rate 95 H 95 H 93 H Respiratory Rate 14 16 16 Blood Pressure Pulse Oximetry 95 96 96 Oxygen Delivery Method 06/20/22 15:50 06/20/22 15:52 06/20/22 15:54 Temperature Pulse Rate 93 H 93 H 96 H Respiratory Rate 15 16 15 Blood Pressure Pulse Oximetry 95 95 96 Oxygen Delivery Method 06/20/22 15:56 06/20/22 15:58 06/20/22 16:00 Temperature Pulse Rate 96 H 96 H Respiratory Rate 17 17 Blood Pressure 108/53 L Pulse Oximetry 96 95 Oxygen Delivery Method 06/20/22 16:00 06/20/22 16:02 06/20/22 16:04 Temperature Pulse Rate 95 H 95 H 95 H Respiratory Rate 17 15 16 Blood Pressure Pulse Oximetry 95 96 96 Oxygen Delivery Method 06/20/22 16:06 06/20/22 16:08 06/20/22 16:10 Temperature Pulse Rate 95 H 95 H 96 H Respiratory Rate 16 16 16 Blood Pressure Pulse Oximetry 96 95 96 Oxygen Delivery Method 06/20/22 16:12 06/20/22 16:14 06/20/22 16:15 Temperature Pulse Rate 96 H 95 H Respiratory Rate 16 15 Blood Pressure 108/53 L Pulse Oximetry 96 96 Oxygen Delivery Method 06/20/22 16:15 06/20/22 16:16 06/20/22 16:18 Temperature Pulse Rate 95 H 94 H 96 H Respiratory Rate 15 17 16 Blood Pressure Pulse Oximetry 95 95 96 Oxygen Delivery Method 06/20/22 16:20 06/20/22 16:22 06/20/22 16:24 Temperature Pulse Rate 96 H 96 H 96 H Respiratory Rate 18 22 25 H Blood Pressure Pulse Oximetry 96 95 96 Oxygen Delivery Method 06/20/22 16:26 06/20/22 16:28 06/20/22 16:30 Temperature Pulse Rate 96 H 96 H Respiratory Rate 20 20 Blood Pressure 107/52 L Pulse Oximetry 96 96 Oxygen Delivery Method 06/20/22 16:30 06/20/22 16:32 06/20/22 16:34 Temperature Pulse Rate 96 H 94 H 96 H Respiratory Rate 21 21 18 Blood Pressure Pulse Oximetry 96 95 96 Oxygen Delivery Method Room Air 06/20/22 16:36 06/20/22 16:38 06/20/22 16:40 Temperature Pulse Rate 96 H 96 H 95 H Respiratory Rate 18 18 18 Blood Pressure Pulse Oximetry 96 96 96 Oxygen Delivery Method 06/20/22 16:42 06/20/22 17:33 06/20/22 16:44 Temperature 97.2 F L Pulse Rate 96 H 96 H Respiratory Rate 20 29 H Blood Pressure Pulse Oximetry 96 96 Oxygen Delivery Method 06/20/22 16:45 06/20/22 16:45 06/20/22 16:46 Temperature Pulse Rate 95 H 95 H Respiratory Rate 28 H 23 Blood Pressure 107/52 L Pulse Oximetry 95 96 Oxygen Delivery Method 06/20/22 16:48 06/20/22 16:50 06/20/22 16:52 Temperature Pulse Rate 96 H 96 H 96 H Respiratory Rate 22 23 24 Blood Pressure Pulse Oximetry 96 96 95 Oxygen Delivery Method Room Air 06/20/22 16:54 06/20/22 16:56 06/20/22 16:58 Temperature Pulse Rate 96 H 97 H 96 H Respiratory Rate 28 H 33 H 32 H Blood Pressure Pulse Oximetry 96 95 95 Oxygen Delivery Method 06/20/22 17:00 06/20/22 17:00 06/20/22 17:02 Temperature Pulse Rate 96 H 96 H Respiratory Rate 27 H 18 Blood Pressure 100/49 L Pulse Oximetry 95 96 Oxygen Delivery Method 06/20/22 17:04 06/20/22 17:06 06/20/22 17:08 Temperature Pulse Rate 97 H 96 H 96 H Respiratory Rate 15 18 18 Blood Pressure Pulse Oximetry 98 98 97 Oxygen Delivery Method 06/20/22 17:10 06/20/22 17:12 06/20/22 17:14 Temperature Pulse Rate 96 H 96 H 96 H Respiratory Rate 17 16 17 Blood Pressure Pulse Oximetry 97 97 97 Oxygen Delivery Method 06/20/22 17:15 06/20/22 17:15 06/20/22 17:16 Temperature Pulse Rate 95 H 95 H Respiratory Rate 18 16 Blood Pressure 108/59 L Pulse Oximetry 97 97 Oxygen Delivery Method 06/20/22 17:18 06/20/22 17:20 06/20/22 17:22 Temperature Pulse Rate 96 H 95 H 95 H Respiratory Rate 15 17 15 Blood Pressure Pulse Oximetry 97 97 97 Oxygen Delivery Method 06/20/22 17:24 06/20/22 17:26 06/20/22 17:28 Temperature Pulse Rate 96 H 95 H 95 H Respiratory Rate 16 15 15 Blood Pressure Pulse Oximetry 97 97 97 Oxygen Delivery Method 06/20/22 17:30 06/20/22 17:30 06/20/22 17:32 Temperature Pulse Rate 95 H 96 H Respiratory Rate 15 15 Blood Pressure 108/51 L Pulse Oximetry 97 97 Oxygen Delivery Method 06/20/22 17:34 06/20/22 17:36 06/20/22 17:38 Temperature Pulse Rate 95 H 94 H 97 H Respiratory Rate 15 23 16 Blood Pressure Pulse Oximetry 97 98 97 Oxygen Delivery Method 06/20/22 17:40 06/20/22 17:42 06/20/22 17:54 Temperature Pulse Rate 96 H 96 H 97 H Respiratory Rate 15 17 Blood Pressure Pulse Oximetry 98 98 Oxygen Delivery Method 06/20/22 17:56 06/20/22 17:58 06/20/22 17:58 Temperature Pulse Rate 96 H 97 H Respiratory Rate 18 21 Blood Pressure 99/79 Pulse Oximetry 95 78 L Oxygen Delivery Method 06/20/22 18:00 06/20/22 18:00 06/20/22 18:02 Temperature Pulse Rate 96 H 95 H Respiratory Rate 14 20 Blood Pressure 97/69 Pulse Oximetry 90 L 96 Oxygen Delivery Method 06/20/22 18:04 06/20/22 18:06 06/20/22 18:08 Temperature 98.3 F Pulse Rate 96 H 96 H 95 H Respiratory Rate 23 20 24 Blood Pressure Pulse Oximetry 97 98 98 Oxygen Delivery Method 06/20/22 18:10 06/20/22 18:12 06/20/22 18:14 Temperature Pulse Rate 93 H 93 H 93 H Respiratory Rate 14 17 16 Blood Pressure Pulse Oximetry 98 99 99 Oxygen Delivery Method 06/20/22 18:16 06/20/22 18:18 06/20/22 18:20 Temperature Pulse Rate 93 H 93 H 95 H Respiratory Rate 15 16 15 Blood Pressure Pulse Oximetry 99 99 99 Oxygen Delivery Method 06/20/22 18:22 Temperature Pulse Rate 93 H Respiratory Rate 21 Blood Pressure Pulse Oximetry 99 Oxygen Delivery Method Oxygen Delivery Method Room Air Objective Labs Result Diagrams: 06/20/22 12:30 06/20/22 18:00 Labs: Laboratory Results - last 24 hr 06/20/22 06/20/22 06/20/22 12:30 12:30 12:30 WBC 12.8 H RBC 5.43 H Hgb 16.0 Hct 48.4 H MCV 89.2 MCH 29.5 MCHC 33.1 RDW 12.9 Plt Count 390 Neut % (Auto) 85.9 H Lymph % (Auto) 9.6 L Catron % (Auto) 4.3 Eos % (Auto) 0.0 L Baso % (Auto) 0.2 Neut # (Auto) 22189 H Lymph # (Auto) 1200 Catron # (Auto) 500 Eos # (Auto) 0 Baso # (Auto) 0 PT 13.8 H INR 1.2 Sodium 144 Potassium 3.2 L Chloride 104 Carbon Dioxide 16 L BUN 44 H Creatinine 1.77 H Estimated GFR 31 L BUN/Creatinine Ratio 24.9 H Glucose 268 H Lactate Calcium 9.2 Total Bilirubin 1.0 AST 245 H ALT 100 H Alkaline Phosphatase 107 Total Creatine Kinase 9473 H CK-MB (CK-2) 98.40 H CK-MB (CK-2) Rel Index 1.0 L Troponin I 0.065 H Total Protein 6.8 Albumin 3.5 Globulin 3.3 Albumin/Globulin Ratio 1.1 Lipase 71 Procalcitonin 0.15 Urine Color Urine Appearance Urine pH Ur Specific Clune Urine Protein Urine Glucose (UA) Urine Ketones Urine Occult Blood Urine Nitrate Urine Bilirubin Ur Bilirubin Confirm Urine Urobilinogen Ur Leukocyte Esterase Urine RBC Urine WBC Ur Squamous Epith Cells Ur Transition Epith Cell Urine Bacteria Ur Culture Indicated? Micro UA Comment Salicylates < 1.0 U Opiates 300ng/mL cut Ur Oxycodone Screen Urine Methadone Screen Acetaminophen < 10 Ur Barbiturates Screen U Tricyclic Antidepress Ur Phencyclidine Scrn Ur Amphetamines Screen U Methamphetamines Scrn Ur MDMA Scrn (Ecstasy) U Benzodiazepines Scrn Urine Cocaine Screen U Marijuana (THC) Screen Ethyl Alcohol < 10 Chlamy pneumoniae PCR Adenovirus (PCR) B. pertussis DNA (PCR) B.parapertussis DNA PCR Coronavirus OC43 (PCR) Coronavirus HKU1 (PCR) Coronavirus 229E (PCR) SARS-CoV-2 (PCR) Coronavirus NL63 (PCR) Human Metapneumovir PCR Influenza Type A (PCR) Influenza Type B (PCR) M. pneumoniae (PCR) Parainfluenza 1 (PCR) Parainfluenza 2 (PCR) Parainfluenza 3 (PCR) Parainfluenza 4 (PCR) RSV (PCR) Entero/Rhino (PCR) 06/20/22 06/20/22 06/20/22 12:30 13:30 13:30 WBC RBC Hgb Hct MCV MCH MCHC RDW Plt Count Neut % (Auto) Lymph % (Auto) Catron % (Auto) Eos % (Auto) Baso % (Auto) Neut # (Auto) Lymph # (Auto) Catron # (Auto) Eos # (Auto) Baso # (Auto) PT INR Sodium Potassium Chloride Carbon Dioxide BUN Creatinine Estimated GFR BUN/Creatinine Ratio Glucose Lactate 8.9 H* Calcium Total Bilirubin AST ALT Alkaline Phosphatase Total Creatine Kinase CK-MB (CK-2) CK-MB (CK-2) Rel Index Troponin I Total Protein Albumin Globulin Albumin/Globulin Ratio Lipase Procalcitonin Urine Color Yellow Urine Appearance Clear Urine pH 5.0 Ur Specific Clune 1.025 Urine Protein 2+ H Urine Glucose (UA) Trace H Urine Ketones 1+ H Urine Occult Blood 3+ H Urine Nitrate Negative Urine Bilirubin 2+ H Ur Bilirubin Confirm Negative Urine Urobilinogen 1.0 Ur Leukocyte Esterase Negative Urine RBC TNP Urine WBC TNP Ur Squamous Epith Cells Ur Transition Epith Cell Urine Bacteria TNP Ur Culture Indicated? Cult not indicated Micro UA Comment Salicylates U Opiates 300ng/mL cut Negative Ur Oxycodone Screen Negative Urine Methadone Screen Negative Acetaminophen Ur Barbiturates Screen Negative U Tricyclic Antidepress Negative Ur Phencyclidine Scrn Negative Ur Amphetamines Screen Negative U Methamphetamines Scrn Negative Ur MDMA Scrn (Ecstasy) Negative U Benzodiazepines Scrn Negative Urine Cocaine Screen Negative U Marijuana (THC) Screen Negative Ethyl Alcohol Chlamy pneumoniae PCR Adenovirus (PCR) B. pertussis DNA (PCR) B.parapertussis DNA PCR Coronavirus OC43 (PCR) Coronavirus HKU1 (PCR) Coronavirus 229E (PCR) SARS-CoV-2 (PCR) Coronavirus NL63 (PCR) Human Metapneumovir PCR Influenza Type A (PCR) Influenza Type B (PCR) M. pneumoniae (PCR) Parainfluenza 1 (PCR) Parainfluenza 2 (PCR) Parainfluenza 3 (PCR) Parainfluenza 4 (PCR) RSV (PCR) Entero/Rhino (PCR) 06/20/22 06/20/22 06/20/22 13:34 14:40 18:00 WBC RBC Hgb Hct MCV MCH MCHC RDW Plt Count Neut % (Auto) Lymph % (Auto) Catron % (Auto) Eos % (Auto) Baso % (Auto) Neut # (Auto) Lymph # (Auto) Catron # (Auto) Eos # (Auto) Baso # (Auto) PT INR Sodium 143 Potassium 3.0 L Chloride 105 Carbon Dioxide 27 BUN 45 H Creatinine 1.31 H Estimated GFR 44 L BUN/Creatinine Ratio 34.4 H Glucose 88 D Lactate 3.6 H Calcium 8.6 Total Bilirubin 1.1 AST 358 H ALT 97 H Alkaline Phosphatase 85 Total Creatine Kinase CK-MB (CK-2) CK-MB (CK-2) Rel Index Troponin I Total Protein 5.7 L Albumin 2.7 L Globulin 3.0 Albumin/Globulin Ratio 0.9 L Lipase Procalcitonin Urine Color Urine Appearance Urine pH Ur Specific Clune Urine Protein Urine Glucose (UA) Urine Ketones Urine Occult Blood Urine Nitrate Urine Bilirubin Ur Bilirubin Confirm Urine Urobilinogen Ur Leukocyte Esterase Urine RBC Urine WBC Ur Squamous Epith Cells Ur Transition Epith Cell Urine Bacteria Ur Culture Indicated? Micro UA Comment Salicylates U Opiates 300ng/mL cut Ur Oxycodone Screen Urine Methadone Screen Acetaminophen Ur Barbiturates Screen U Tricyclic Antidepress Ur Phencyclidine Scrn Ur Amphetamines Screen U Methamphetamines Scrn Ur MDMA Scrn (Ecstasy) U Benzodiazepines Scrn Urine Cocaine Screen U Marijuana (THC) Screen Ethyl Alcohol Chlamy pneumoniae PCR Not detected Adenovirus (PCR) Not detected B. pertussis DNA (PCR) Not detected B.parapertussis DNA PCR Not detected Coronavirus OC43 (PCR) Not detected Coronavirus HKU1 (PCR) Not detected Coronavirus 229E (PCR) Not detected SARS-CoV-2 (PCR) Detected H Coronavirus NL63 (PCR) Not detected Human Metapneumovir PCR Not detected Influenza Type A (PCR) Not detected Influenza Type B (PCR) Not detected M. pneumoniae (PCR) Not detected Parainfluenza 1 (PCR) Not detected Parainfluenza 2 (PCR) Not detected Parainfluenza 3 (PCR) Not detected Parainfluenza 4 (PCR) Not detected RSV (PCR) Not detected Entero/Rhino (PCR) Not detected 06/20/22 18:30 WBC RBC Hgb Hct MCV MCH MCHC RDW Plt Count Neut % (Auto) Lymph % (Auto) Catron % (Auto) Eos % (Auto) Baso % (Auto) Neut # (Auto) Lymph # (Auto) Catron # (Auto) Eos # (Auto) Baso # (Auto) PT INR Sodium Potassium Chloride Carbon Dioxide BUN Creatinine Estimated GFR BUN/Creatinine Ratio Glucose Lactate Calcium Total Bilirubin AST ALT Alkaline Phosphatase Total Creatine Kinase CK-MB (CK-2) CK-MB (CK-2) Rel Index Troponin I Total Protein Albumin Globulin Albumin/Globulin Ratio Lipase Procalcitonin Urine Color Urine Appearance Urine pH Ur Specific Clune Urine Protein Urine Glucose (UA) Urine Ketones Urine Occult Blood Urine Nitrate Urine Bilirubin Ur Bilirubin Confirm Urine Urobilinogen Ur Leukocyte Esterase Urine RBC 0-1/hpf Urine WBC 5-10/hpf H Ur Squamous Epith Cells 0-1 /hpf Ur Transition Epith Cell 0-1/hpf Urine Bacteria Few (2-10) H Ur Culture Indicated? Specimen cultured Micro UA Comment Salicylates U Opiates 300ng/mL cut Ur Oxycodone Screen Urine Methadone Screen Acetaminophen Ur Barbiturates Screen U Tricyclic Antidepress Ur Phencyclidine Scrn Ur Amphetamines Screen U Methamphetamines Scrn Ur MDMA Scrn (Ecstasy) U Benzodiazepines Scrn Urine Cocaine Screen U Marijuana (THC) Screen Ethyl Alcohol Chlamy pneumoniae PCR Adenovirus (PCR) B. pertussis DNA (PCR) B.parapertussis DNA PCR Coronavirus OC43 (PCR) Coronavirus HKU1 (PCR) Coronavirus 229E (PCR) SARS-CoV-2 (PCR) Coronavirus NL63 (PCR) Human Metapneumovir PCR Influenza Type A (PCR) Influenza Type B (PCR) M. pneumoniae (PCR) Parainfluenza 1 (PCR) Parainfluenza 2 (PCR) Parainfluenza 3 (PCR) Parainfluenza 4 (PCR) RSV (PCR) Entero/Rhino (PCR) Assessment & Plan Assessment & Plan narrative: patient seen with bedside nurse, discussed with Dr. Edwards 71 year old female admitted to ICU for Shock, multifactorial acute renal failure rhabdomyolysis currently temp 98.3, bp requiring vasopressors minimal urine output suggest -repeat labs stat, check abg -increase IVF with goal Uo of 100cc/hr -if not improvement and kidney function worsening suggest transfer to a higher level fo care for HD -eval abg, low threshold for intubation -neurochecks/seizure precautions -castanon cxs -broad spec abx -check serial ekg/trop -check echo -monitor ins/outs -replace lytes prn -keep glucose 140-180s -gi/dvt ppx -please call eICU if condition changes total ccm time 55 mins Time Spent With Patient Critical Care time: I spent a total of [] minutes of critical care time on this patient's care today; this time is exclusive of procedural time.
[2022-06-20 19:17] LABS: Troponin I 0.081 ng/mL (0.01-0.034)
[2022-06-20 19:20] LABS: Creatine Kinase 13581 U/L (30-135)
--- NOTE | 2022-06-20 19:25 | PC.NURSE ---
Jann Chowdary brother of patient approved to receive medical information. [phone].
--- NOTE | 2022-06-20 20:36 | PM.ICURNDS ---
- Date Patient Seen: 06/20/22 Time Patient Seen: 20:36 :: This patient was seen via real time interactive two-way audiovisual telecommunication. Note: labs reviewed, creat improving ck still rising no hyperkalemia vbg pending pressors less. can be stopped continuve IVF, monitor output repaet labs/vbg in am, low threshold to transfer for HD
[2022-06-20] MEDS: PIPERACILLIN/TAZO 3.375 GM in SODIUM CHLORIDE 0.9% 100 ML IV (21:11)
[2022-06-21] VITALS (32 sets, daily range): BP systolic 101–160; BP diastolic 52–78; PULSE 64–178; RESP 13–38; TEMP 36.3–37.9; O2SAT 80–99
[2022-06-21] MEDS: SODIUM CHLORIDE 0.9% 1,000 ML 150 ML IV (01:21)
[2022-06-21] MEDS: HYDROMORPHONE 0.5 MG INJ IV ×2 (01:43→05:51)
--- NOTE | 2022-06-21 01:50 | PC.NURSE ---
Patient restless and pulling at tubes and wires. Reminded multiple times not to pull at things. Asked if she was in pain, patient nodding head yes. Medicated with dilaudid slow iv push, patient becoming less restless.
[2022-06-21 03:27] LABS: Add Manual Diff / Slide Review NO; Basophils Absolute Auto 0 /uL (0-100); Basophils Percent Auto 0.3 % (0-2); Eosinophils Absolute Auto 0 /uL (0-450); Hematocrit 39.2 % (36-46); Hemoglobin 13.3 g/dL (12.0-16.0); Lymphocytes Absolute Auto 1100 /uL (1100-4500); Lymphocytes Percent Auto 6.6 % (25-40); Mean Corpuscular HGB Conc 33.9 % (30-36); Mean Corpuscular Hemoglobin 29.8 PG (26-34); Monocytes Absolute Auto 1300 /uL (0-900); Monocytes Percent Auto 8.4 % (3-14); Neutrophils Absolute Auto 13500 /uL (1500-7000); Neutrophils Percent Auto 84.7 % (50-75); Platelet Count 307 X10^3/uL (150-400); Red Blood Cell Count 4.46 X10^6/uL (4.0-5.2); Red Cell Distribution Width 13.5 % (11.6-14.8)
[2022-06-21 03:46] LABS: Alanine Aminotransferase 113 IU/L (<35); Albumin 2.4 g/dL (3.5-5.0); Alkaline Phosphatase 75 U/L (38-126); Aspartate Aminotransferase 407 IU/L (14-36); BUN Creatinine Ratio 34.5 (6-22); Blood Urea Nitrogen 41 mg/dL (7-17); Calcium 8.2 mg/dL (8.4-10.2); Carbon Dioxide 25 mmol/L (22-32); Chloride 111 mmol/L (98-107); Estimated Glomerular Filt Rate 49 mL/min (>60); Globulin 2.5 g/dL (1.7-4.1); Glucose 120 mg/dL (80-110); HEMOLYSIS < 15 (0-50); Magnesium 1.7 mg/dL (1.6-2.3); Potassium 3.4 mmol/L (3.4-5.1); Sodium 142 mmol/L (137-145); Total Protein 4.9 g/dL (6.3-8.2)
[2022-06-21 03:48] LABS: Troponin I 0.071 ng/mL (0.01-0.034)
[2022-06-21 04:19] LABS: Creatine Kinase 14813 U/L (30-135)
[2022-06-21] MEDS: PIPERACILLIN/TAZO 3.375 GM in SODIUM CHLORIDE 0.9% 100 ML IV ×3 (05:40→20:45)
[2022-06-21 05:43] LABS: HCO3 VBG 25 mmol/L (23-28); Oxygen Saturation VBG 77 % (70-75); PCO2 VBG 39.8 mmHg (45-50); PO2 VBG 41 mmHg (35-45); Total CO2 VBG 26 mmol/L (24-29); pH VBG 7.41 (7.33-7.43)
--- NOTE | 2022-06-21 07:50 | PM.PN.EICU ---
Subjective Subjective IF CAMERA ACTIVATED, patient seen via real-time interactive audiovisual communication: Camera activated Date Patient Seen: 06/21/22 Consent obtained for tele-steward/stewardess lounge care: Yes Patient Location: ICU Provider location (State): [place] Other participants/roles: Bedside RN Interval history: No acute issues overnight. CPK increasing and UOP ~800 over the last 24 hours. On room air and following commands. On levophed 2 mcg. Current Medications Current Medications Medications: Home Medications meclizine 25 mg tablet 25 mg PO TID Anti vertigo #20 tabs 06/30/19 [Rx] ondansetron 8 mg disintegrating tablet 8 mg PO Q8H PRN nausea and vomiting #14 tabs 06/30/19 [Rx] cyclobenzaprine 10 mg tablet 5 - 10 mg PO BID PRN muscle spasm #10 tabs 05/07/20 [Rx] lidocaine 5 % topical patch 1 patch topical DAILY PRN pain #30 ea 05/07/20 [Rx] meclizine 25 mg tablet 25 mg PO BID-TID PRN dizziness #14 tabs 04/08/22 [Rx] hydrochlorothiazide 12.5 mg tablet 12.5 mg PO DAILY 06/20/22 [History Confirmed 06/20/22] losartan 100 mg tablet 100 mg PO DAILY 06/20/22 [History Confirmed 06/20/22] Visit Medications (administered) Generic Name Dose Route Start Last Admin Trade Name Freq PRN Reason Stop Dose Admin Heparin Sodium (Porcine) 50 unit 06/20/22 21:00 06/21/22 00:35 Heparin Flush (Cl/Picc/Mid-Line) 50 Unit/5 Ml Syringe IV Not Given BID DIOMEDES Hydromorphone HCl 0.5 mg 06/20/22 18:17 06/21/22 05:51 Hydromorphone 0.5 Mg Inj IV 0.5 mg Q4H PRN Administration Pain, Moderate (4-6) Sodium Chloride 1,000 mls @ 150 mls/hr 06/20/22 12:15 06/21/22 01:21 Normal Saline 0.9% IV 150 mls/hr CONT DIOMEDES Administration NOREPINEPHRINE BITARTRATE/D5W 4 mg in 250 mls @ 30 mls/hr 06/20/22 13:00 06/21/22 00:36 Levophed IV 2 mcg/min TITRATE DIOMEDES 7.5 mls/hr Titration Protocol 8 MCG/MIN Piperacillin Sod/Tazobactam 100 mls @ 25 mls/hr 06/20/22 21:00 06/21/22 05:40 Sod 3.375 gm/ Sodium Chloride IV 25 mls/hr Q8H DIOMEDES Administration Objective Labs Result Diagrams: 06/21/22 03:10 06/21/22 03:10 Labs: Laboratory Results - last 24 hr 06/20/22 06/20/22 06/20/22 12:30 12:30 12:30 WBC 12.8 H RBC 5.43 H Hgb 16.0 Hct 48.4 H MCV 89.2 MCH 29.5 MCHC 33.1 RDW 12.9 Plt Count 390 Neut % (Auto) 85.9 H Lymph % (Auto) 9.6 L [place] % (Auto) 4.3 Eos % (Auto) 0.0 L Baso % (Auto) 0.2 Neut # (Auto) 84771 H Lymph # (Auto) 1200 [place] # (Auto) 500 Eos # (Auto) 0 Baso # (Auto) 0 PT 13.8 H INR 1.2 VBG pH VBG pCO2 VBG pO2 VBG HCO3 VBG Total CO2 VBG O2 Saturation VBG Base Excess Sodium 144 Potassium 3.2 L Chloride 104 Carbon Dioxide 16 L BUN 44 H Creatinine 1.77 H Estimated GFR 31 L BUN/Creatinine Ratio 24.9 H Glucose 268 H Lactate Calcium 9.2 Magnesium Total Bilirubin 1.0 AST 245 H ALT 100 H Alkaline Phosphatase 107 Total Creatine Kinase 9473 H CK-MB (CK-2) 98.40 H CK-MB (CK-2) Rel Index 1.0 L Troponin I 0.065 H Total Protein 6.8 Albumin 3.5 Globulin 3.3 Albumin/Globulin Ratio 1.1 Lipase 71 Procalcitonin 0.15 Urine Color Urine Appearance Urine pH Ur Specific Vera Urine Protein Urine Glucose (UA) Urine Ketones Urine Occult Blood Urine Nitrate Urine Bilirubin Ur Bilirubin Confirm Urine Urobilinogen Ur Leukocyte Esterase Urine RBC Urine WBC Ur Squamous Epith Cells Ur Transition Epith Cell Urine Bacteria Ur Culture Indicated? Micro UA Comment Nasal Screen MRSA (PCR) Salicylates < 1.0 U Opiates 300ng/mL cut Ur Oxycodone Screen Urine Methadone Screen Acetaminophen < 10 Ur Barbiturates Screen U Tricyclic Antidepress Ur Phencyclidine Scrn Ur Amphetamines Screen U Methamphetamines Scrn Ur MDMA Scrn (Ecstasy) U Benzodiazepines Scrn Urine Cocaine Screen U Marijuana (THC) Screen Ethyl Alcohol < 10 Chlamy pneumoniae PCR Adenovirus (PCR) B. pertussis DNA (PCR) B.parapertussis DNA PCR Coronavirus OC43 (PCR) Coronavirus HKU1 (PCR) Coronavirus 229E (PCR) SARS-CoV-2 (PCR) Coronavirus NL63 (PCR) Human Metapneumovir PCR Influenza Type A (PCR) Influenza Type B (PCR) M. pneumoniae (PCR) Parainfluenza 1 (PCR) Parainfluenza 2 (PCR) Parainfluenza 3 (PCR) Parainfluenza 4 (PCR) RSV (PCR) Entero/Rhino (PCR) 06/20/22 06/20/22 06/20/22 12:30 13:30 13:30 WBC RBC Hgb Hct MCV MCH MCHC RDW Plt Count Neut % (Auto) Lymph % (Auto) [place] % (Auto) Eos % (Auto) Baso % (Auto) Neut # (Auto) Lymph # (Auto) [place] # (Auto) Eos # (Auto) Baso # (Auto) PT INR VBG pH VBG pCO2 VBG pO2 VBG HCO3 VBG Total CO2 VBG O2 Saturation VBG Base Excess Sodium Potassium Chloride Carbon Dioxide BUN Creatinine Estimated GFR BUN/Creatinine Ratio Glucose Lactate 8.9 H* Calcium Magnesium Total Bilirubin AST ALT Alkaline Phosphatase Total Creatine Kinase CK-MB (CK-2) CK-MB (CK-2) Rel Index Troponin I Total Protein Albumin Globulin Albumin/Globulin Ratio Lipase Procalcitonin Urine Color Yellow Urine Appearance Clear Urine pH 5.0 Ur Specific Vera 1.025 Urine Protein 2+ H Urine Glucose (UA) Trace H Urine Ketones 1+ H Urine Occult Blood 3+ H Urine Nitrate Negative Urine Bilirubin 2+ H Ur Bilirubin Confirm Negative Urine Urobilinogen 1.0 Ur Leukocyte Esterase Negative Urine RBC TNP Urine WBC TNP Ur Squamous Epith Cells Ur Transition Epith Cell Urine Bacteria TNP Ur Culture Indicated? Cult not indicated Micro UA Comment Nasal Screen MRSA (PCR) Salicylates U Opiates 300ng/mL cut Negative Ur Oxycodone Screen Negative Urine Methadone Screen Negative Acetaminophen Ur Barbiturates Screen Negative U Tricyclic Antidepress Negative Ur Phencyclidine Scrn Negative Ur Amphetamines Screen Negative U Methamphetamines Scrn Negative Ur MDMA Scrn (Ecstasy) Negative U Benzodiazepines Scrn Negative Urine Cocaine Screen Negative U Marijuana (THC) Screen Negative Ethyl Alcohol Chlamy pneumoniae PCR Adenovirus (PCR) B. pertussis DNA (PCR) B.parapertussis DNA PCR Coronavirus OC43 (PCR) Coronavirus HKU1 (PCR) Coronavirus 229E (PCR) SARS-CoV-2 (PCR) Coronavirus NL63 (PCR) Human Metapneumovir PCR Influenza Type A (PCR) Influenza Type B (PCR) M. pneumoniae (PCR) Parainfluenza 1 (PCR) Parainfluenza 2 (PCR) Parainfluenza 3 (PCR) Parainfluenza 4 (PCR) RSV (PCR) Entero/Rhino (PCR) 06/20/22 06/20/22 06/20/22 13:34 14:40 18:00 WBC RBC Hgb Hct MCV MCH MCHC RDW Plt Count Neut % (Auto) Lymph % (Auto) [place] % (Auto) Eos % (Auto) Baso % (Auto) Neut # (Auto) Lymph # (Auto) [place] # (Auto) Eos # (Auto) Baso # (Auto) PT INR VBG pH VBG pCO2 VBG pO2 VBG HCO3 VBG Total CO2 VBG O2 Saturation VBG Base Excess Sodium Potassium Chloride Carbon Dioxide BUN Creatinine Estimated GFR BUN/Creatinine Ratio Glucose Lactate 3.6 H Calcium Magnesium Total Bilirubin AST ALT Alkaline Phosphatase Total Creatine Kinase CK-MB (CK-2) CK-MB (CK-2) Rel Index Troponin I Total Protein Albumin Globulin Albumin/Globulin Ratio Lipase Procalcitonin Urine Color Urine Appearance Urine pH Ur Specific Vera Urine Protein Urine Glucose (UA) Urine Ketones Urine Occult Blood Urine Nitrate Urine Bilirubin Ur Bilirubin Confirm Urine Urobilinogen Ur Leukocyte Esterase Urine RBC Urine WBC Ur Squamous Epith Cells Ur Transition Epith Cell Urine Bacteria Ur Culture Indicated? Micro UA Comment Nasal Screen MRSA (PCR) Negative for mrsa Salicylates U Opiates 300ng/mL cut Ur Oxycodone Screen Urine Methadone Screen Acetaminophen Ur Barbiturates Screen U Tricyclic Antidepress Ur Phencyclidine Scrn Ur Amphetamines Screen U Methamphetamines Scrn Ur MDMA Scrn (Ecstasy) U Benzodiazepines Scrn Urine Cocaine Screen U Marijuana (THC) Screen Ethyl Alcohol Chlamy pneumoniae PCR Not detected Adenovirus (PCR) Not detected B. pertussis DNA (PCR) Not detected B.parapertussis DNA PCR Not detected Coronavirus OC43 (PCR) Not detected Coronavirus HKU1 (PCR) Not detected Coronavirus 229E (PCR) Not detected SARS-CoV-2 (PCR) Detected H Coronavirus NL63 (PCR) Not detected Human Metapneumovir PCR Not detected Influenza Type A (PCR) Not detected Influenza Type B (PCR) Not detected M. pneumoniae (PCR) Not detected Parainfluenza 1 (PCR) Not detected Parainfluenza 2 (PCR) Not detected Parainfluenza 3 (PCR) Not detected Parainfluenza 4 (PCR) Not detected RSV (PCR) Not detected Entero/Rhino (PCR) Not detected 06/20/22 06/20/22 06/20/22 18:00 18:00 18:00 WBC 19.2 H RBC 4.94 Hgb 14.8 Hct 43.1 MCV 87.4 MCH 30.0 MCHC 34.4 RDW 13.2 Plt Count 376 Neut % (Auto) 85.3 H Lymph % (Auto) 5.5 L [place] % (Auto) 8.8 Eos % (Auto) 0.0 L Baso % (Auto) 0.4 Neut # (Auto) 34994 H Lymph # (Auto) 1100 [place] # (Auto) 1700 H Eos # (Auto) 0 Baso # (Auto) 100 PT INR VBG pH VBG pCO2 VBG pO2 VBG HCO3 VBG Total CO2 VBG O2 Saturation VBG Base Excess Sodium 143 Potassium 3.0 L Chloride 105 Carbon Dioxide 27 BUN 45 H Creatinine 1.31 H Estimated GFR 44 L BUN/Creatinine Ratio 34.4 H Glucose 88 D Lactate Calcium 8.6 Magnesium Total Bilirubin 1.1 AST 358 H ALT 97 H Alkaline Phosphatase 85 Total Creatine Kinase 96323 H D CK-MB (CK-2) CK-MB (CK-2) Rel Index Troponin I Total Protein 5.7 L Albumin 2.7 L Globulin 3.0 Albumin/Globulin Ratio 0.9 L Lipase Procalcitonin Urine Color Urine Appearance Urine pH Ur Specific Vera Urine Protein Urine Glucose (UA) Urine Ketones Urine Occult Blood Urine Nitrate Urine Bilirubin Ur Bilirubin Confirm Urine Urobilinogen Ur Leukocyte Esterase Urine RBC Urine WBC Ur Squamous Epith Cells Ur Transition Epith Cell Urine Bacteria Ur Culture Indicated? Micro UA Comment Nasal Screen MRSA (PCR) Salicylates U Opiates 300ng/mL cut Ur Oxycodone Screen Urine Methadone Screen Acetaminophen Ur Barbiturates Screen U Tricyclic Antidepress Ur Phencyclidine Scrn Ur Amphetamines Screen U Methamphetamines Scrn Ur MDMA Scrn (Ecstasy) U Benzodiazepines Scrn Urine Cocaine Screen U Marijuana (THC) Screen Ethyl Alcohol Chlamy pneumoniae PCR Adenovirus (PCR) B. pertussis DNA (PCR) B.parapertussis DNA PCR Coronavirus OC43 (PCR) Coronavirus HKU1 (PCR) Coronavirus 229E (PCR) SARS-CoV-2 (PCR) Coronavirus NL63 (PCR) Human Metapneumovir PCR Influenza Type A (PCR) Influenza Type B (PCR) M. pneumoniae (PCR) Parainfluenza 1 (PCR) Parainfluenza 2 (PCR) Parainfluenza 3 (PCR) Parainfluenza 4 (PCR) RSV (PCR) Entero/Rhino (PCR) 06/20/22 06/20/22 06/20/22 18:00 18:30 20:51 WBC RBC Hgb Hct MCV MCH MCHC RDW Plt Count Neut % (Auto) Lymph % (Auto) [place] % (Auto) Eos % (Auto) Baso % (Auto) Neut # (Auto) Lymph # (Auto) [place] # (Auto) Eos # (Auto) Baso # (Auto) PT INR VBG pH 7.41 VBG pCO2 39.8 L VBG pO2 41 VBG HCO3 25 VBG Total CO2 26 VBG O2 Saturation 77 H VBG Base Excess 0.0 Sodium Potassium Chloride Carbon Dioxide BUN Creatinine Estimated GFR BUN/Creatinine Ratio Glucose Lactate Calcium Magnesium Total Bilirubin AST ALT Alkaline Phosphatase Total Creatine Kinase CK-MB (CK-2) CK-MB (CK-2) Rel Index Troponin I 0.081 H Total Protein Albumin Globulin Albumin/Globulin Ratio Lipase Procalcitonin Urine Color Urine Appearance Urine pH Ur Specific Vera Urine Protein Urine Glucose (UA) Urine Ketones Urine Occult Blood Urine Nitrate Urine Bilirubin Ur Bilirubin Confirm Urine Urobilinogen Ur Leukocyte Esterase Urine RBC 0-1/hpf Urine WBC 5-10/hpf H Ur Squamous Epith Cells 0-1 /hpf Ur Transition Epith Cell 0-1/hpf Urine Bacteria Few (2-10) H Ur Culture Indicated? Specimen cultured Micro UA Comment Nasal Screen MRSA (PCR) Salicylates U Opiates 300ng/mL cut Ur Oxycodone Screen Urine Methadone Screen Acetaminophen Ur Barbiturates Screen U Tricyclic Antidepress Ur Phencyclidine Scrn Ur Amphetamines Screen U Methamphetamines Scrn Ur MDMA Scrn (Ecstasy) U Benzodiazepines Scrn Urine Cocaine Screen U Marijuana (THC) Screen Ethyl Alcohol Chlamy pneumoniae PCR Adenovirus (PCR) B. pertussis DNA (PCR) B.parapertussis DNA PCR Coronavirus OC43 (PCR) Coronavirus HKU1 (PCR) Coronavirus 229E (PCR) SARS-CoV-2 (PCR) Coronavirus NL63 (PCR) Human Metapneumovir PCR Influenza Type A (PCR) Influenza Type B (PCR) M. pneumoniae (PCR) Parainfluenza 1 (PCR) Parainfluenza 2 (PCR) Parainfluenza 3 (PCR) Parainfluenza 4 (PCR) RSV (PCR) Entero/Rhino (PCR) 06/21/22 06/21/22 06/21/22 03:10 03:10 03:10 WBC 16.0 H RBC 4.46 Hgb 13.3 Hct 39.2 MCV 88.0 MCH 29.8 MCHC 33.9 RDW 13.5 Plt Count 307 Neut % (Auto) 84.7 H Lymph % (Auto) 6.6 L [place] % (Auto) 8.4 Eos % (Auto) 0.0 L Baso % (Auto) 0.3 Neut # (Auto) 48007 H Lymph # (Auto) 1100 [place] # (Auto) 1300 H Eos # (Auto) 0 Baso # (Auto) 0 PT INR VBG pH VBG pCO2 VBG pO2 VBG HCO3 VBG Total CO2 VBG O2 Saturation VBG Base Excess Sodium 142 Potassium 3.4 Chloride 111 H Carbon Dioxide 25 BUN 41 H Creatinine 1.19 H Estimated GFR 49 L BUN/Creatinine Ratio 34.5 H Glucose 120 H Lactate Calcium 8.2 L Magnesium 1.7 Total Bilirubin 1.0 AST 407 H ALT 113 H Alkaline Phosphatase 75 Total Creatine Kinase 48905 H CK-MB (CK-2) CK-MB (CK-2) Rel Index Troponin I Total Protein 4.9 L Albumin 2.4 L Globulin 2.5 Albumin/Globulin Ratio 1.0 Lipase Procalcitonin Urine Color Urine Appearance Urine pH Ur Specific Vera Urine Protein Urine Glucose (UA) Urine Ketones Urine Occult Blood Urine Nitrate Urine Bilirubin Ur Bilirubin Confirm Urine Urobilinogen Ur Leukocyte Esterase Urine RBC Urine WBC Ur Squamous Epith Cells Ur Transition Epith Cell Urine Bacteria Ur Culture Indicated? Micro UA Comment Nasal Screen MRSA (PCR) Salicylates U Opiates 300ng/mL cut Ur Oxycodone Screen Urine Methadone Screen Acetaminophen Ur Barbiturates Screen U Tricyclic Antidepress Ur Phencyclidine Scrn Ur Amphetamines Screen U Methamphetamines Scrn Ur MDMA Scrn (Ecstasy) U Benzodiazepines Scrn Urine Cocaine Screen U Marijuana (THC) Screen Ethyl Alcohol Chlamy pneumoniae PCR Adenovirus (PCR) B. pertussis DNA (PCR) B.parapertussis DNA PCR Coronavirus OC43 (PCR) Coronavirus HKU1 (PCR) Coronavirus 229E (PCR) SARS-CoV-2 (PCR) Coronavirus NL63 (PCR) Human Metapneumovir PCR Influenza Type A (PCR) Influenza Type B (PCR) M. pneumoniae (PCR) Parainfluenza 1 (PCR) Parainfluenza 2 (PCR) Parainfluenza 3 (PCR) Parainfluenza 4 (PCR) RSV (PCR) Entero/Rhino (PCR) 06/21/22 03:10 WBC RBC Hgb Hct MCV MCH MCHC RDW Plt Count Neut % (Auto) Lymph % (Auto) [place] % (Auto) Eos % (Auto) Baso % (Auto) Neut # (Auto) Lymph # (Auto) [place] # (Auto) Eos # (Auto) Baso # (Auto) PT INR VBG pH VBG pCO2 VBG pO2 VBG HCO3 VBG Total CO2 VBG O2 Saturation VBG Base Excess Sodium Potassium Chloride Carbon Dioxide BUN Creatinine Estimated GFR BUN/Creatinine Ratio Glucose Lactate Calcium Magnesium Total Bilirubin AST ALT Alkaline Phosphatase Total Creatine Kinase CK-MB (CK-2) CK-MB (CK-2) Rel Index Troponin I 0.071 H Total Protein Albumin Globulin Albumin/Globulin Ratio Lipase Procalcitonin Urine Color Urine Appearance Urine pH Ur Specific Vera Urine Protein Urine Glucose (UA) Urine Ketones Urine Occult Blood Urine Nitrate Urine Bilirubin Ur Bilirubin Confirm Urine Urobilinogen Ur Leukocyte Esterase Urine RBC Urine WBC Ur Squamous Epith Cells Ur Transition Epith Cell Urine Bacteria Ur Culture Indicated? Micro UA Comment Nasal Screen MRSA (PCR) Salicylates U Opiates 300ng/mL cut Ur Oxycodone Screen Urine Methadone Screen Acetaminophen Ur Barbiturates Screen U Tricyclic Antidepress Ur Phencyclidine Scrn Ur Amphetamines Screen U Methamphetamines Scrn Ur MDMA Scrn (Ecstasy) U Benzodiazepines Scrn Urine Cocaine Screen U Marijuana (THC) Screen Ethyl Alcohol Chlamy pneumoniae PCR Adenovirus (PCR) B. pertussis DNA (PCR) B.parapertussis DNA PCR Coronavirus OC43 (PCR) Coronavirus HKU1 (PCR) Coronavirus 229E (PCR) SARS-CoV-2 (PCR) Coronavirus NL63 (PCR) Human Metapneumovir PCR Influenza Type A (PCR) Influenza Type B (PCR) M. pneumoniae (PCR) Parainfluenza 1 (PCR) Parainfluenza 2 (PCR) Parainfluenza 3 (PCR) Parainfluenza 4 (PCR) RSV (PCR) Entero/Rhino (PCR) Exam Vital Signs (past 8 hours): - 06/21/22 00:00 06/21/22 01:00 06/21/22 02:00 Temperature 97.3 F L Pulse Rate 100 H 103 H 96 H Respiratory Rate 17 29 H 14 Blood Pressure 113/58 L 111/78 122/57 L Pulse Oximetry 99 99 98 06/21/22 03:00 06/21/22 04:00 06/21/22 05:00 Temperature 99.4 F Pulse Rate 95 H 94 H 102 H Respiratory Rate 13 16 34 H Blood Pressure 111/58 L 104/52 L 121/60 Pulse Oximetry 98 98 97 06/21/22 06:00 Temperature Pulse Rate 93 H Respiratory Rate 13 Blood Pressure 111/52 L Pulse Oximetry 97 Oxygen Delivery Method Room Air Narrative Exam Narrative: Not in distress. On room air sleeping comfortably. Quality TeleICU VTE Deep Vein Thrombosis/Pulmonary Embolism Present on Admission: No Assessment & Plan Assessment & Plan narrative: NEURO: -- Seek early mobility -- Daily CAM ICU RESP: -- On room air -- Encourage IS and early mobility -- CXR showed no dense consolidation CVS: # Shock -- Secondary to hypovolemia and sepsis -- Ordered 1 liter LR bolus -- ON LR 150 cc/hr -- On levophed 2 mcg -- MAP goal > 65 : # CRYSTAL -- Secondary to dehydration and COVID-19 -- Cont IVF resuscitation -- Avoid nephrotoxin agents -- Monitor UOP -- Daily BMP # Rhabdomyolysis -- On IVF -- Goal UOP 100 mL/hr -- Trend CPK ID: # COVID -[id number] -- On room air -- If developed hypoxemia then will start decadron therapy -- On contact/airborne/droplet precautions # Severe sepsis -- Unclear source of infection -- Urine cx negative to date -- Blood cx pending -- On zosyn GI: # Abnormal LFTs -- Secondary to rhabdomyolysis -- Daily LFTs -- On IVF ENDO: -- Goal BS < 180 D/w bedside RN. Time Spent With Patient Critical Care time: I spent a total of 33 minutes of critical care time on this patient's care today; this time is exclusive of procedural time.
[2022-06-21] MEDS: LACTATED RINGERS 1,000 ML 1000 ML IV (07:57)
[2022-06-21] MEDS: LACTATED RINGERS 1,000 ML 150 ML IV ×2 (09:20→16:05)
[2022-06-21] MEDS: ENOXAPARIN 40 MG/0.4 ML SYRINGE SUBCUT (10:00)
--- NOTE | 2022-06-21 12:11 | CM.DANOTE ---
DCP: Case received, EMR reviewed. Unable to meet with patient, due to COVID isolation, and unable to call patient due to confusion, sedation. Completed DCP assessment based upon information currently available. Patient is a 71 year old female who admitted yesterday afternoon to the care of the hospitalist team. PCP: Dr. Mera. Payer: confirmed: [employer] Medicare. Patient came to the hospital via ambulance secondary to her being found on the ground in her home by a neighbor. Notes indicated, home was cold, no heat. Notes from ER indicate patient was noted to be down with hypothermic, neighbor found her, picked her up and took her to the bathroom, and EMS arrived. Patient was noted to be mottled, as well. Central line was placed, and patient is noted to have bilateral infiltrates suspicious for pneumonia, and is positive for COVID. Patient was placed on Levophed as well. Patient also notes afib with RVR. Son had been attempted to reach, but voice mail box full. Patient also notes questionable cognitive issues, possible early dementia. Unable to meet with patient due to COVID, confusion, she is sleeping at the time. Peach from Barbara, ICU nurse, patient is estranged from sons, one lives in [place]. She has no POA, nor does she want one, according to hospitalist. She resides alone in [place]. It is also noted that her primary provider fired her, due to non-compliance, therefor, hospitalist is seeing patient. P: DCP will follow case closely. May need resources, financially, if she is unable to pay for utilities. If she did need skilled versus home health, provider in the clinic would need to follow. She is not medically stable at this time for P.T. eval as of yet. Shasha Truong RN/Envelope Maker Discharge Planning/Care Management CM Discharge Assessment Start: 06/21/22 12:07 Freq: Status: Active Protocol: Document 06/21/22 12:07 (Rec: 06/21/22 12:11 [id number]) Discharge Planning Assessment Assigned Male Impersonator Shasha Truong RN/Envelope Maker Advance Directives? Yes Advance Directives on File unknown History Provided By Patient,Medical Record Prior Living Arrangements House Household Members other Type of transporation used prior to Drives own vehicle admit Is patient alert and oriented? Uncertain at this time as far as cognition Caregiver for Another No Barriers to Discharge Yes Comment Cognition, home situation, non-compliance with meds. Discharge Plan Home Transportation Arrangement Will see when patient is more medically stable, if skilled would be an option. Referrals Initiated Other Additional Comment Patient is confused at this time, will see when patient is more alert, and medically stable. Whiteboard Updated in Patient Room with No name and ext. # of Male Impersonator Comment Did not enter room, patient is COVID positive Review Status In Process Next Review Type Continued Stay Review
--- NOTE | 2022-06-21 16:16 | PM.PN.1 ---
Subjective Subjective Date Patient Seen: 06/21/22 Interval history: 71 F admitted with septic shock, hypothermia. Weaned off pressors since this AM, CK rising but Creatinine improving. She remains unable to adequately communicate today and presumably encephalopathic. Exam Vital Signs (past 8 hours): - 06/21/22 09:00 06/21/22 10:00 06/21/22 09:00 Temperature Pulse Rate 103 H 91 H 99 H Respiratory Rate 26 H 16 Blood Pressure 149/68 H 128/57 L Pulse Oximetry 96 98 99 Oxygen Flow Rate 0 0 06/21/22 09:15 06/21/22 09:15 06/21/22 10:00 Temperature Pulse Rate 103 H Respiratory Rate 26 H Blood Pressure 149/68 H 128/57 L Pulse Oximetry 99 Oxygen Flow Rate 06/21/22 10:00 06/21/22 11:00 06/21/22 11:00 Temperature Pulse Rate 91 H 98 H Respiratory Rate 16 15 Blood Pressure 130/65 Pulse Oximetry 98 97 Oxygen Flow Rate 06/21/22 12:00 06/21/22 13:00 06/21/22 14:00 Temperature Pulse Rate 103 H 64 125 H Respiratory Rate 17 38 H 18 Blood Pressure Pulse Oximetry 98 83 L 80 L Oxygen Flow Rate 06/21/22 15:00 Temperature 100.2 F H Pulse Rate 68 Respiratory Rate 21 Blood Pressure 154/69 H Pulse Oximetry 98 Oxygen Flow Rate 0 Oxygen Delivery Method Room Air Oxygen Flow Rate 0 Narrative Exam Narrative: General:? Patient is chronically ill appearing female, no acute distress. HEENT:? Normocephalic, atraumatic, extraocular muscles intact, oral pharynx is clear and mucous membranes are moist Neck: supple and symmetric, trachea is midline, no cervical adenopathy. Negative for JVD Chest:? Normal AP diameter and contour without kyphoscoliosis, no tachypnea, equal chest rise bilaterally. Lungs:? CTA b/l no wheezing rhonchi or rales but diminshed breath sounds at her bases, poor effort. Cardio:?RRR, 3/6 systolic murmur. Abdomen: S NT ND. Musculoskeletal:?no joint effusions or tenderness. Extremities: No edema, mottled appearance of hands improved. they are warm and well perfused today. Skin:? Pale,? Warm to touch,dry and intact without rashes, ulcerations or petechiae.? Neuro:? Alert but obviously confused. Moves all extremities. Psych:?reserved, appears distrustful, refusing most things Objective Labs Result Diagrams: 06/21/22 03:10 06/21/22 03:10 Labs: Laboratory Results - last 24 hr 06/20/22 06/20/22 06/20/22 18:00 18:00 18:00 WBC 19.2 H RBC 4.94 Hgb 14.8 Hct 43.1 MCV 87.4 MCH 30.0 MCHC 34.4 RDW 13.2 Plt Count 376 Neut % (Auto) 85.3 H Lymph % (Auto) 5.5 L [place] % (Auto) 8.8 Eos % (Auto) 0.0 L Baso % (Auto) 0.4 Neut # (Auto) 52114 H Lymph # (Auto) 1100 [place] # (Auto) 1700 H Eos # (Auto) 0 Baso # (Auto) 100 VBG pH VBG pCO2 VBG pO2 VBG HCO3 VBG Total CO2 VBG O2 Saturation VBG Base Excess Sodium 143 Potassium 3.0 L Chloride 105 Carbon Dioxide 27 BUN 45 H Creatinine 1.31 H Estimated GFR 44 L BUN/Creatinine Ratio 34.4 H Glucose 88 D Calcium 8.6 Magnesium Total Bilirubin 1.1 AST 358 H ALT 97 H Alkaline Phosphatase 85 Total Creatine Kinase Troponin I Total Protein 5.7 L Albumin 2.7 L Globulin 3.0 Albumin/Globulin Ratio 0.9 L Urine RBC Urine WBC Ur Squamous Epith Cells Ur Transition Epith Cell Urine Bacteria Ur Culture Indicated? Nasal Screen MRSA (PCR) Negative for mrsa 06/20/22 06/20/22 06/20/22 18:00 18:00 18:30 WBC RBC Hgb Hct MCV MCH MCHC RDW Plt Count Neut % (Auto) Lymph % (Auto) [place] % (Auto) Eos % (Auto) Baso % (Auto) Neut # (Auto) Lymph # (Auto) [place] # (Auto) Eos # (Auto) Baso # (Auto) VBG pH VBG pCO2 VBG pO2 VBG HCO3 VBG Total CO2 VBG O2 Saturation VBG Base Excess Sodium Potassium Chloride Carbon Dioxide BUN Creatinine Estimated GFR BUN/Creatinine Ratio Glucose Calcium Magnesium Total Bilirubin AST ALT Alkaline Phosphatase Total Creatine Kinase 13220 H D Troponin I 0.081 H Total Protein Albumin Globulin Albumin/Globulin Ratio Urine RBC 0-1/hpf Urine WBC 5-10/hpf H Ur Squamous Epith Cells 0-1 /hpf Ur Transition Epith Cell 0-1/hpf Urine Bacteria Few (2-10) H Ur Culture Indicated? Specimen cultured Nasal Screen MRSA (PCR) 06/20/22 06/21/22 06/21/22 20:51 03:10 03:10 WBC 16.0 H RBC 4.46 Hgb 13.3 Hct 39.2 MCV 88.0 MCH 29.8 MCHC 33.9 RDW 13.5 Plt Count 307 Neut % (Auto) 84.7 H Lymph % (Auto) 6.6 L [place] % (Auto) 8.4 Eos % (Auto) 0.0 L Baso % (Auto) 0.3 Neut # (Auto) 86255 H Lymph # (Auto) 1100 [place] # (Auto) 1300 H Eos # (Auto) 0 Baso # (Auto) 0 VBG pH 7.41 VBG pCO2 39.8 L VBG pO2 41 VBG HCO3 25 VBG Total CO2 26 VBG O2 Saturation 77 H VBG Base Excess 0.0 Sodium 142 Potassium 3.4 Chloride 111 H Carbon Dioxide 25 BUN 41 H Creatinine 1.19 H Estimated GFR 49 L BUN/Creatinine Ratio 34.5 H Glucose 120 H Calcium 8.2 L Magnesium 1.7 Total Bilirubin 1.0 AST 407 H ALT 113 H Alkaline Phosphatase 75 Total Creatine Kinase Troponin I Total Protein 4.9 L Albumin 2.4 L Globulin 2.5 Albumin/Globulin Ratio 1.0 Urine RBC Urine WBC Ur Squamous Epith Cells Ur Transition Epith Cell Urine Bacteria Ur Culture Indicated? Nasal Screen MRSA (PCR) 06/21/22 06/21/22 03:10 03:10 WBC RBC Hgb Hct MCV MCH MCHC RDW Plt Count Neut % (Auto) Lymph % (Auto) [place] % (Auto) Eos % (Auto) Baso % (Auto) Neut # (Auto) Lymph # (Auto) [place] # (Auto) Eos # (Auto) Baso # (Auto) VBG pH VBG pCO2 VBG pO2 VBG HCO3 VBG Total CO2 VBG O2 Saturation VBG Base Excess Sodium Potassium Chloride Carbon Dioxide BUN Creatinine Estimated GFR BUN/Creatinine Ratio Glucose Calcium Magnesium Total Bilirubin AST ALT Alkaline Phosphatase Total Creatine Kinase 73289 H Troponin I 0.071 H Total Protein Albumin Globulin Albumin/Globulin Ratio Urine RBC Urine WBC Ur Squamous Epith Cells Ur Transition Epith Cell Urine Bacteria Ur Culture Indicated? Nasal Screen MRSA (PCR) [facility] Medical History (Updated 06/20/22 @ 18:18 by Marielos Arceo DO) Chronic sinusitis HTN (hypertension) Sinusitis Vertigo Surgical History (Updated 06/20/22 @ 18:17 by Jann Edwards DO) No pertinent past surgical history Social History household members: other Smoking Status: Former smoker Assessment & Plan Assessment & Plan narrative: 71 F admitted with hypothermia due to exposure, septic shock possibly due to bacterial pneumonia. 1. Hypothermia with acute rhabdomyolysis and CRYSTAL - patient presented with temperature of 84 degrees. Now normothermic after bear hugger placed. - CK near 10,000 on admission labs, uptrending still. - abel in place, follow urine output closely. Creatinine 1.77 on admit, now improving. - continue LR per tele-intensivists. - UA consistent with rhabdo, 5-10 WBC as well reflexed for culture. 2. Septic and hypovolemic shock secondary to rhabdomyolysis, superimposed bacterial pneumonia or acute cystitis with CRYSTAL, acute metabolic encephalopathy, any hypotension requiring pressor support. - tele-timber supervisor consultation, appreciate their services. - continue zosyn empirically, cultures pending. CXR with multifocal pneumonia, mild leukocytosis, but UA with 5-10 WBC as well. - now off of levophed. - given lab improvement but lack of encephalopathy improvement, consider MRI if not improved tomorrow. 3. COVID 19 pneumonia - not currently hypoxic, presumed old infection as she reportedly tested positive on 06/05/22. 4. Afib with RVR, resolved - suspect in setting of hypothermia. 5. HTN - reportedly non compliant per PCP. Held in setting of septic shock, restart cautiously if downgraded to floor today. 6. Hypokalemia - improved with fluid administration, will continue to moniotr. 7. Myocardial injury - elevated troponin at 0.065, likely in setting of demand. continue to follow, repeat EKG as noted above. Code: Full, she declines surrogate decision maker at this time after discussion. Per patient's PCP she has two sons whom are estranged. DVT: Lovenox daily Dispo: Admitted to ICU, if labs improving this afternoon can downgrade to regular floor. Dispo from hospital unclear at this time given encephalopathy. I have utilized all available immediate resources to obtain, update, or review the patient's current medications. I spent 30 minutes providing critical care management this patient. This excludes time spent in performing separately billed procedures. COVID-19 COVID-19 status: Positive Time Spent With Patient Critical Care time: I spent a total of [] minutes of critical care time on this patient's care today; this time is exclusive of procedural time. Quality VTE Deep Vein Thrombosis/Pulmonary Embolism Present on Admission: No
[2022-06-21 17:25] LABS: Alanine Aminotransferase 137 IU/L (<35); Albumin 2.5 g/dL (3.5-5.0); Albumin Globulin Ratio 0.9 (1.0-2.8); Alkaline Phosphatase 77 U/L (38-126); Aspartate Aminotransferase 519 IU/L (14-36); BUN Creatinine Ratio 29.1 (6-22); Bilirubin Total 0.8 mg/dL (0.2-1.3); Blood Urea Nitrogen 25 mg/dL (7-17); Calcium 8.3 mg/dL (8.4-10.2); Carbon Dioxide 27 mmol/L (22-32); Chloride 112 mmol/L (98-107); Estimated Glomerular Filt Rate > 60 mL/min (>60); Globulin 2.8 g/dL (1.7-4.1); Glucose 97 mg/dL (80-110); HEMOLYSIS < 15 (0-50); Magnesium 1.7 mg/dL (1.6-2.3); Potassium 3.4 mmol/L (3.4-5.1); Sodium 145 mmol/L (137-145); Total Protein 5.3 g/dL (6.3-8.2)
[2022-06-21 17:38] LABS: Add Manual Diff / Slide Review NO; Basophils Absolute Auto 0 /uL (0-100); Basophils Percent Auto 0.3 % (0-2); Eosinophils Absolute Auto 0 /uL (0-450); Hematocrit 34.5 % (36-46); Hemoglobin 11.7 g/dL (12.0-16.0); Lymphocytes Absolute Auto 800 /uL (1100-4500); Lymphocytes Percent Auto 5.9 % (25-40); Mean Corpuscular HGB Conc 33.8 % (30-36); Mean Corpuscular Hemoglobin 29.9 PG (26-34); Mean Corpuscular Volume 88.2 fL (80-100); Monocytes Absolute Auto 1100 /uL (0-900); Monocytes Percent Auto 7.6 % (3-14); Neutrophils Absolute Auto 12000 /uL (1500-7000); Neutrophils Percent Auto 86.2 % (50-75); Platelet Count 243 X10^3/uL (150-400); Red Blood Cell Count 3.91 X10^6/uL (4.0-5.2); Red Cell Distribution Width 13.1 % (11.6-14.8); White Blood Cell Count 13.9 X10^3/uL (4.5-11.0)
[2022-06-21 18:14] LABS: Creatine Kinase 14616 U/L (30-135)
--- NOTE | 2022-06-21 21:54 | PC.NURSE ---
Spoke in great length to son Adebayo Avendano patient son. He states that he has not seen his mother for 3 years, and was notified of the conditions she was living in by [facility]. Very anxious to see her and is open to helping her with whatever she needs. Phone number [phone]. Phone number under name of Pascale Hua.
[2022-06-22] VITALS (30 sets, daily range): BP systolic 135–158; BP diastolic 63–108; PULSE 89–105; RESP 18–24; TEMP 36.9–38.1; O2SAT 24–98
[2022-06-22] MEDS: ACETAMINOPHEN 650 MG SUPP PR (00:14)
[2022-06-22] MEDS: LACTATED RINGERS 1,000 ML 150 ML IV (04:01)
[2022-06-22 04:25] LABS: Add Manual Diff / Slide Review NO; Basophils Absolute Auto 0 /uL (0-100); Basophils Percent Auto 0.3 % (0-2); Eosinophils Absolute Auto 0 /uL (0-450); Hematocrit 31.5 % (36-46); Hemoglobin 10.8 g/dL (12.0-16.0); Lymphocytes Absolute Auto 1000 /uL (1100-4500); Lymphocytes Percent Auto 8.6 % (25-40); Mean Corpuscular HGB Conc 34.2 % (30-36); Mean Corpuscular Volume 87.8 fL (80-100); Monocytes Absolute Auto 900 /uL (0-900); Monocytes Percent Auto 7.2 % (3-14); Neutrophils Absolute Auto 10200 /uL (1500-7000); Neutrophils Percent Auto 83.9 % (50-75); Platelet Count 202 X10^3/uL (150-400); Red Blood Cell Count 3.58 X10^6/uL (4.0-5.2); Red Cell Distribution Width 13.1 % (11.6-14.8); White Blood Cell Count 12.1 X10^3/uL (4.5-11.0)
[2022-06-22 04:31] LABS: Alanine Aminotransferase 126 IU/L (<35); Albumin 2.2 g/dL (3.5-5.0); Albumin Globulin Ratio 0.8 (1.0-2.8); Alkaline Phosphatase 68 U/L (38-126); Aspartate Aminotransferase 433 IU/L (14-36); Bilirubin Total 0.7 mg/dL (0.2-1.3); Blood Urea Nitrogen 17 mg/dL (7-17); Calcium 7.7 mg/dL (8.4-10.2); Carbon Dioxide 28 mmol/L (22-32); Chloride 115 mmol/L (98-107); Estimated Glomerular Filt Rate > 60 mL/min (>60); Globulin 2.6 g/dL (1.7-4.1); Glucose 84 mg/dL (80-110); HEMOLYSIS < 15 (0-50); Magnesium 1.6 mg/dL (1.6-2.3); Potassium 2.8 mmol/L (3.4-5.1); Sodium 146 mmol/L (137-145); Total Protein 4.8 g/dL (6.3-8.2)
[2022-06-22 04:43] LABS: Creatine Kinase 11682 U/L (30-135)
[2022-06-22] MEDS: PIPERACILLIN/TAZO 3.375 GM in SODIUM CHLORIDE 0.9% 100 ML IV ×3 (04:45→21:24)
[2022-06-22] MEDS: DEXTROSE 5%-0.45% NS 1,000 ML 100 ML IV (08:03)
[2022-06-22] MEDS: ENOXAPARIN 40 MG/0.4 ML SYRINGE SUBCUT (08:04)
[2022-06-22] MEDS: POTASSIUM CHLORIDE IN WATER 10 MEQ/100 ML PIGGYBACK 100 MEQ IV ×4 (08:52→11:48)
--- NOTE | 2022-06-22 10:30 | PC.NURSE ---
swallow eval done - pt was able to swallow water from a spoon and drink from the cup. No coughing or difficulty noted, pt states she's hungry
[2022-06-22] MEDS: MAGNESIUM CHLORIDE 64 MG TABLET 128 MG PO (11:53)
--- NOTE | 2022-06-22 12:34 | PM.PN.1 ---
Subjective Subjective Date Patient Seen: 06/22/22 Interval history: Patient is more alert today, occasionally will answer questions and continues to improve throughout the day. She passed bedside swallow and speech is improved. She has no focal deficits on exam today, but remains encephalopathic and avoidant / distrustful of care. Exam Vital Signs (past 8 hours): - 06/22/22 08:00 06/22/22 07:00 06/22/22 08:00 Temperature 98.4 F 98.6 F Pulse Rate 99 H 97 H Respiratory Rate 21 18 Blood Pressure 154/71 H 154/71 H Pulse Oximetry 98 96 Oxygen Delivery Method Room Air Oxygen Flow Rate 0 06/22/22 05:00 06/22/22 06:00 06/22/22 07:00 Temperature Pulse Rate 94 H 92 H 90 Respiratory Rate Blood Pressure Pulse Oximetry 94 94 96 Oxygen Delivery Method Oxygen Flow Rate 06/22/22 08:00 06/22/22 08:16 06/22/22 08:16 Temperature Pulse Rate 89 104 H Respiratory Rate Blood Pressure 158/108 H Pulse Oximetry 94 96 Oxygen Delivery Method Oxygen Flow Rate 06/22/22 08:19 06/22/22 08:19 06/22/22 09:00 Temperature Pulse Rate 98 H 94 H Respiratory Rate Blood Pressure 154/71 H Pulse Oximetry 96 95 Oxygen Delivery Method Oxygen Flow Rate 06/22/22 10:00 06/22/22 11:00 06/22/22 11:03 Temperature Pulse Rate 92 H 101 H 98 H Respiratory Rate Blood Pressure Pulse Oximetry 94 96 96 Oxygen Delivery Method Oxygen Flow Rate 06/22/22 11:03 06/22/22 12:00 Temperature Pulse Rate 101 H Respiratory Rate Blood Pressure 143/67 H Pulse Oximetry 96 Oxygen Delivery Method Oxygen Flow Rate Oxygen Delivery Method Room Air Oxygen Flow Rate 0 Narrative Exam Narrative: General:? Patient is chronically ill appearing female, no acute distress. HEENT:? Normocephalic, atraumatic, extraocular muscles intact, oral pharynx is clear and mucous membranes are moist Neck: supple and symmetric, trachea is midline, no cervical adenopathy. Negative for JVD Chest:? Normal AP diameter and contour without kyphoscoliosis, no tachypnea, equal chest rise bilaterally. Lungs:? CTA b/l no wheezing rhonchi or rales but diminshed breath sounds at her bases, poor effort. Cardio:?RRR, 3/6 systolic murmur. Abdomen: S NT ND. Musculoskeletal:?no joint effusions or tenderness. Extremities: No edema, mottled appearance of hands improved. they are warm and well perfused today. Skin:? Pale,? Warm to touch,dry and intact without rashes, ulcerations or petechiae.? Neuro:? Alert, more oriented but did not answer to date Moves all extremities equally. Psych:?reserved, appears distrustful, refusing most things Objective Labs Result Diagrams: 06/22/22 03:48 06/22/22 03:48 Labs: Laboratory Results - last 24 hr 06/21/22 06/21/22 06/21/22 17:05 17:05 17:05 WBC 13.9 H RBC 3.91 L Hgb 11.7 L Hct 34.5 L MCV 88.2 MCH 29.9 MCHC 33.8 RDW 13.1 Plt Count 243 Neut % (Auto) 86.2 H Lymph % (Auto) 5.9 L [place] % (Auto) 7.6 Eos % (Auto) 0.0 L Baso % (Auto) 0.3 Neut # (Auto) 27571 H Lymph # (Auto) 800 L [place] # (Auto) 1100 H Eos # (Auto) 0 Baso # (Auto) 0 Sodium 145 Potassium 3.4 Chloride 112 H Carbon Dioxide 27 BUN 25 H Creatinine 0.86 Estimated GFR > 60 BUN/Creatinine Ratio 29.1 H Glucose 97 Calcium 8.3 L Magnesium 1.7 Total Bilirubin 0.8 AST 519 H ALT 137 H Alkaline Phosphatase 77 Total Creatine Kinase Total Protein 5.3 L Albumin 2.5 L Globulin 2.8 Albumin/Globulin Ratio 0.9 L 06/21/22 06/22/22 06/22/22 17:05 03:48 03:48 WBC 12.1 H RBC 3.58 L Hgb 10.8 L Hct 31.5 L MCV 87.8 MCH 30.0 MCHC 34.2 RDW 13.1 Plt Count 202 Neut % (Auto) 83.9 H Lymph % (Auto) 8.6 L [place] % (Auto) 7.2 Eos % (Auto) 0.0 L Baso % (Auto) 0.3 Neut # (Auto) 46724 H Lymph # (Auto) 1000 L [place] # (Auto) 900 Eos # (Auto) 0 Baso # (Auto) 0 Sodium Potassium Chloride Carbon Dioxide BUN Creatinine Estimated GFR BUN/Creatinine Ratio Glucose Calcium Magnesium Total Bilirubin AST ALT Alkaline Phosphatase Total Creatine Kinase 80918 H 26823 H Total Protein Albumin Globulin Albumin/Globulin Ratio 06/22/22 03:48 WBC RBC Hgb Hct MCV MCH MCHC RDW Plt Count Neut % (Auto) Lymph % (Auto) [place] % (Auto) Eos % (Auto) Baso % (Auto) Neut # (Auto) Lymph # (Auto) [place] # (Auto) Eos # (Auto) Baso # (Auto) Sodium 146 H Potassium 2.8 L Chloride 115 H Carbon Dioxide 28 BUN 17 Creatinine 0.68 Estimated GFR > 60 BUN/Creatinine Ratio 25.0 H Glucose 84 Calcium 7.7 L Magnesium 1.6 Total Bilirubin 0.7 AST 433 H ALT 126 H Alkaline Phosphatase 68 Total Creatine Kinase Total Protein 4.8 L Albumin 2.2 L Globulin 2.6 Albumin/Globulin Ratio 0.8 L PFSH Medical History (Updated 06/20/22 @ 18:18 by Marielos Arceo DO) Chronic sinusitis HTN (hypertension) Sinusitis Vertigo Surgical History (Updated 06/20/22 @ 18:17 by Jann Edwards DO) No pertinent past surgical history Social History household members: other Smoking Status: Former smoker Assessment & Plan Assessment & Plan narrative: 71 F admitted with hypothermia due to exposure, septic shock possibly due to bacterial pneumonia. 1. Hypothermia with acute rhabdomyolysis and CRYSTAL - patient presented with temperature of 84 degrees. Now normothermic after bear hugger placed and resolved. - CK near 10,000 on admission labs, uptrended until today, now downtrended. - abel in place, follow urine output closely. Creatinine 1.77 on admit, now improving. - stable for regular floor. - UA consistent with rhabdo, 5-10 WBC as well reflexed for culture. 2. Septic and hypovolemic shock secondary to rhabdomyolysis, superimposed bacterial pneumonia or acute cystitis with CRYSTAL, acute metabolic encephalopathy, any hypotension requiring pressor support. - tele-interpretative dancer consultation while in ICU, appreciate their services. Now regular floor patient. - continue zosyn empirically, cultures pending. CXR with multifocal pneumonia, mild leukocytosis, but UA with 5-10 WBC as well. - now off of levophed. - some improvement in encephalopathy today, without focal neuro deficits, though she is very confused still. Consider MRI. 3. COVID 19 pneumonia - not currently hypoxic, presumed old infection as she reportedly tested positive on 06/05/22. 4. Afib with RVR, resolved - suspect in setting of hypothermia. 5. HTN - reportedly non compliant per PCP. Held in setting of septic shock, restart cautiously if downgraded to floor today. 6. Hypokalemia - improved with fluid administration, will continue to monitor. 7. Myocardial injury - elevated troponin at 0.065, likely in setting of demand. continue to follow, repeat EKG as noted above. Code: Full, she declines surrogate decision maker at this time after discussion. Per patient's PCP she has two sons whom are estranged. DVT: Lovenox daily Dispo: Admitted as inptatient. Dispo from hospital unclear at this time given encephalopathy. I have utilized all available immediate resources to obtain, update, or review the patient's current medications. COVID-19 COVID-19 status: Positive Time Spent With Patient Critical Care time: I spent a total of [] minutes of critical care time on this patient's care today; this time is exclusive of procedural time. Quality VTE Deep Vein Thrombosis/Pulmonary Embolism Present on Admission: No
--- NOTE | 2022-06-22 14:59 | CM.DPC ---
DCP Continued: CM spoke with patients nurse who stated patient is completely out of it and not clear or able to have a conversation at this time. CM received patients son phone number for Adebayo who lives in [place] but has been estranged from the patient for 3 years. CM attempted to contact the son but voicemail box is full. CM team will attempt to call him again. Cm was informed that the patients brother keeps calling but hasn't left his phone number. CM asked nursing if he calls back to forward his call to CM department so we can get some back ground and information to help in DC planning process for this patient. CM called [facility] to see if this patient has applied for medicaid or has medicaid and was told they do not have information for this patient. CM team will continue to work on developing a plan for DC once patient is more coherent or Cm team can get in contact with patients family. Plan A: home with and resources for electricity like [employer] in [place] who can help with getting electric bills paid if that is the issues. still need more back ground information for this plan Plan B: SNF -but unable to start search yet due to patient not being coherent and not reaching any family members. Patient has [employer]ARP Medicare and will need an authorization if this is the DC plan Niruka Thompson RNwireless construction manager
[2022-06-23] VITALS (14 sets, daily range): BP systolic 139–151; BP diastolic 64–76; PULSE 79–95; RESP 16–96; TEMP 36.2–37.2; O2SAT 94–99
[2022-06-23] MEDS: PIPERACILLIN/TAZO 3.375 GM in SODIUM CHLORIDE 0.9% 100 ML IV ×3 (04:40→21:26)
[2022-06-23] MEDS: DEXTROSE 5%-0.45% NS 1,000 ML 40 ML IV (04:40)
[2022-06-23 05:05] LABS: Add Manual Diff / Slide Review NO; Basophils Absolute Auto 0 /uL (0-100); Basophils Percent Auto 0.1 % (0-2); Eosinophils Absolute Auto 0 /uL (0-450); Eosinophils Percent Auto 0.2 % (2-4); Hematocrit 30.5 % (36-46); Hemoglobin 10.5 g/dL (12.0-16.0); Lymphocytes Absolute Auto 900 /uL (1100-4500); Lymphocytes Percent Auto 9.9 % (25-40); Mean Corpuscular HGB Conc 34.5 % (30-36); Mean Corpuscular Hemoglobin 30.5 PG (26-34); Mean Corpuscular Volume 88.5 fL (80-100); Monocytes Absolute Auto 500 /uL (0-900); Monocytes Percent Auto 5.3 % (3-14); Neutrophils Absolute Auto 7900 /uL (1500-7000); Neutrophils Percent Auto 84.5 % (50-75); Platelet Count 175 X10^3/uL (150-400); Red Blood Cell Count 3.45 X10^6/uL (4.0-5.2); Red Cell Distribution Width 13.3 % (11.6-14.8); White Blood Cell Count 9.4 X10^3/uL (4.5-11.0)
[2022-06-23 05:17] LABS: Alanine Aminotransferase 124 IU/L (<35); Albumin 2.3 g/dL (3.5-5.0); Albumin Globulin Ratio 0.9 (1.0-2.8); Alkaline Phosphatase 71 U/L (38-126); Aspartate Aminotransferase 328 IU/L (14-36); BUN Creatinine Ratio 16.7 (6-22); Bilirubin Total 0.8 mg/dL (0.2-1.3); Blood Urea Nitrogen 10 mg/dL (7-17); Calcium 7.7 mg/dL (8.4-10.2); Carbon Dioxide 30 mmol/L (22-32); Chloride 111 mmol/L (98-107); Estimated Glomerular Filt Rate > 60 mL/min (>60); Globulin 2.5 g/dL (1.7-4.1); Glucose 113 mg/dL (80-110); HEMOLYSIS < 15 (0-50); Magnesium 1.7 mg/dL (1.6-2.3); Potassium 2.9 mmol/L (3.4-5.1); Sodium 144 mmol/L (137-145); Total Protein 4.8 g/dL (6.3-8.2)
[2022-06-23] MEDS: POTASSIUM CHLORIDE IN WATER 10 MEQ/100 ML PIGGYBACK 100 MEQ IV ×6 (06:56→17:18)
[2022-06-23] MEDS: MAGNESIUM SULFATE 2 GM/50 ML PIGGYBACK IV (06:56)
[2022-06-23] MEDS: ENOXAPARIN 40 MG/0.4 ML SYRINGE SUBCUT (10:44)
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
[2022-06-23 14:55] LABS: Ammonia (NH3) < 9 umol/L (9-30)
--- NOTE | 2022-06-23 16:58 | P.PN_ITS ---
Subjective Subjective Date Patient Seen: 06/23/22 Time Patient Seen: 08:00 Interval history: She is confused. She states she has no pain. Exam Vital Signs (past 8 hours): - 06/23/22 09:00 06/23/22 13:00 06/23/22 16:33 Temperature 97.8 F 98.3 F Pulse Rate 84 82 79 Respiratory Rate 16 96 H Blood Pressure 149/70 H 139/76 Pulse Oximetry 96 96 97 Oxygen Delivery Method Room Air Oxygen Flow Rate 0 0 Oxygen Delivery Method Room Air Oxygen Flow Rate 0 Narrative Exam Narrative: General:? Patient is chronically ill appearing female, no acute distress. Lungs:? clear bilaterally Cardio: systolic murmur, regular rate and rhythm Abdomen: soft nontender, nondistended, no organomegaly Neuro:alert, not oriented, visual hallucinations Objective Labs Result Diagrams: 06/23/22 04:55 06/23/22 04:55 Labs: Laboratory Results - last 24 hr 06/23/22 06/23/22 06/23/22 04:55 04:55 Unknown WBC 9.4 RBC 3.45 L Hgb 10.5 L Hct 30.5 L MCV 88.5 MCH 30.5 MCHC 34.5 RDW 13.3 Plt Count 175 Neut % (Auto) 84.5 H Lymph % (Auto) 9.9 L [place] % (Auto) 5.3 Eos % (Auto) 0.2 L Baso % (Auto) 0.1 Neut # (Auto) 7900 H Lymph # (Auto) 900 L [place] # (Auto) 500 Eos # (Auto) 0 Baso # (Auto) 0 Sodium 144 Potassium 2.9 L Chloride 111 H Carbon Dioxide 30 BUN 10 Creatinine 0.60 Estimated GFR > 60 BUN/Creatinine Ratio 16.7 Glucose 113 H Calcium 7.7 L Magnesium 1.7 Total Bilirubin 0.8 AST 328 H ALT 124 H Alkaline Phosphatase 71 Ammonia < 9 L Total Protein 4.8 L Albumin 2.3 L Globulin 2.5 Albumin/Globulin Ratio 0.9 L PFSH Medical History (Updated 06/20/22 @ 18:18 by Marielos Arceo DO) Chronic sinusitis HTN (hypertension) Sinusitis Vertigo Surgical History (Updated 06/20/22 @ 18:17 by Jann Edwards DO) No pertinent past surgical history Social History household members: other Smoking Status: Former smoker Assessment & Plan Assessment & Plan narrative: 71 F admitted with hypothermia due to exposure, septic shock possibly due to bacterial pneumonia. 1. Hypothermia with acute rhabdomyolysis and CRYSTAL - patient presented with temperature of 84 degrees. Now normothermic after bear hugger placed and resolved. - CK near 10,000 on admission labs, uptrended until today, now downtrended. - abel in place, follow urine output closely. Creatinine 1.77 on admit, now improving. - stable for regular floor. - UA consistent with rhabdo, 5-10 WBC as well reflexed for culture. 2. Septic and hypovolemic shock superimposed bacterial pneumonia or acute cystitis - continue zosyn empirically, cultures pending. CXR with multifocal pneumonia, mild leukocytosis, but UA with 5-10 WBC as well. - now off of levophed. 3. acute metabolic encephalopathy, any hypotension requiring pressor support. -ammonia normal - some improvement in encephalopathy today, without focal neuro deficits, though she is very confused still. Consider MRI. 4. COVID 19 pneumonia - not currently hypoxic, presumed old infection as she reportedly tested positive on 06/05/22. 5. Afib with RVR, resolved - suspect in setting of hypothermia. 6. HTN - reportedly non compliant per PCP. Held in setting of septic shock, restart cautiously if downgraded to floor today. 7. Hypokalemia -continue repletion PRN 8. Myocardial injury - elevated troponin at 0.065, likely in setting of demand. continue to follow, repeat EKG as noted above. Code: Full, she declines surrogate decision maker at this time after discussion. Per patient's PCP she has two sons whom are estranged. COVID-19 COVID-19 status: Positive Time Spent With Patient Critical Care time: I spent a total of [] minutes of critical care time on this patient's care today; this time is exclusive of procedural time. Quality VTE Deep Vein Thrombosis/Pulmonary Embolism Present on Admission: No
--- NOTE | 2022-06-23 17:02 | DI.MRI.S_ITS ---
PROCEDURE: MR HEAD/BRAIN WO CON INDICATIONS: encephalopathy TECHNIQUE: Non-contrast axial T1 spin echo, axial T2 fast spin echo, sagittal and axial FLAIR, coronal T2 fast spin echo, axial gradient echo, axial diffusion and ADC through the brain. COMPARISON: [facility], MR, MR HEAD/BRAIN WO/W CON, 03/31/2022, 15:05. FINDINGS: Image quality: Excellent. CSF spaces: Ventricles appear symmetric in size and shape. Basal cisterns are patent. No extra-axial fluid collections. Brain: No intracranial bleeds or mass effects. There is cerebral volume loss for age. There are moderate periventricular and deep white matter chronic small vessel ischemic changes. Brainstem appears normal. There is a tiny focus of restricted water diffusion in the left cerebellum consistent with a tiny acute lacunar infarction. Reference image 62/11, the diffusion-weighted sequence. No chronic ischemic insults. Normal intravascular flow voids are present. Skull and face: Calvarial bone marrow is normal in signal. Orbits are normal. Sinuses: Bilateral maxillary sinus mucosal thickening and patchy bilateral ethmoid mucosal thickening. IMPRESSION: 1. Age-related volume loss and moderate small vessel ischemic change. 2. Tiny acute left cerebellar lacunar infarction. 3. Chronic sinus disease. Dictated by: Tono Salomon M.D. on 06/23/2022 at 19:47 Approved by: Tono Salomon M.D. on 06/23/2022 at 19:51
[2022-06-23] MEDS: POTASSIUM CHLORIDE 20 MEQ TAB 40 MEQ PO (19:32)
--- NOTE | 2022-06-23 20:42 | PC.NURSE ---
LOC/Cardiac: Pt very disoriented today, only knows her name, doesn't know who the President is or that Idalia is coming. Only oriented to name at this time. Is expressing concern for her cat and a sitter was found via the next door neighbor. Pt is having auditory and visual hallucinations. Thought the IV pole was Tc, someone who she worked with long ago. Thought the monitor behind her was a person standing there, just looking at her. Though she saw food stuck to the wall under the communication board in the room. Thinks she hears someone she knows talking about her out in the hallways. Wasn't even able to speak her bdate. MD made aware pt is having auditory and visual hallucinations. Pt has remained disoriented through the day. Pt also had a run of what appeared to be a-fib with and rvr up to 160's. made aware, by the time ekg was completed pt had self converted. She had no c/p during this time. Sats remained 95% or greater. BP has been high and MD is aware of that already. Pt gets teary quickly and gets angry at self for not being able to remember. She wanted her sons called ands her brother Jann made aware of where she is at. Whats going on and this was done.
--- NOTE | 2022-06-24 | DI.CT.S_ITS ---
PROCEDURE: CT ANGIO HEAD INDICATIONS: cva TECHNIQUE: Precontrast 4.5 mm thick angled axial sections acquired from the foramen magnum to the vertex. After the administration of intravenous contrast, 1 mm thick sections acquired through the [place] of [place]. Postcontrast 4.5 mm thick sections then re-acquired from the foramen magnum to the vertex. 10 mm thick ibizzru-vzehxivur-npbazddpby (MIP) reformats were acquired of the central intracranial vasculature. For radiation dose reduction, the following was used: automated exposure control, adjustment of mA and/or kV according to patient size. COMPARISON: [facility], MR, MR HEAD/BRAIN WO CON, 06/23/2022, 18:12. [facility], CT, CT HEAD/BRAIN WO CON, 01/01/2022, 19:41. [facility], MR, MR HEAD/BRAIN WO/W CON, 03/31/2022, 15:05. [facility], CT, CT HEAD/BRAIN WO CON, 06/20/2022, 12:18. FINDINGS: Image quality: Excellent. Anterior circulation: Intracranial internal carotid arteries are normal in size and flow. There is a hypoplastic right A1 segment, with a corresponding robust left A1 segment. This is considered to be a normal developmental variant of the [place] of [place], of typically no clinical consequence. The flow within the paired anterior cerebral arteries is otherwise normal and symmetric. The flow within the middle cerebral arteries is normal and symmetric. The anterior communicating artery is seen. No aneurysms are seen. Posterior circulation: Visualized portions of the vertebral arteries demonstrate normal caliber, and join to form a normal appearing basilar artery. Flow within the posterior cerebral arteries is normal and symmetric. No aneurysms are seen. CSF spaces: Ventricles are normal in size and shape. Basal cisterns are patent. No extra-axial fluid collections. Brain: No CT correlate is found for the tiny punctate infarction of the left cerebellum seen on the recent MRI. No midline shift. No intracranial bleeds or masses. Thomas-white matter interface appears intact. Skull and face: Calvarium and facial bones appear intact, without suspicious lesions. Sinuses: Visualized sinuses and mastoids are clear. IMPRESSION: No significant intracranial arterial abnormality is seen. No CT correlate for the previously seen left cerebellar infarction. Dictated by: Poncho Curry M.D. on 06/24/2022 at 8:23 Approved by: Poncho Curry M.D. on 06/24/2022 at 8:26
[2022-06-24 05:00] VITALS: BP 136/64; PULSE 76; RESP 19; TEMP 37.2; O2SAT 94
[2022-06-24] MEDS: PIPERACILLIN/TAZO 3.375 GM in SODIUM CHLORIDE 0.9% 100 ML IV ×3 (05:52→21:40)
[2022-06-24 06:14] LABS: Hemoglobin 10.3 g/dL (12.0-16.0); Mean Corpuscular HGB Conc 34.5 % (30-36); Mean Corpuscular Hemoglobin 30.4 PG (26-34); Mean Corpuscular Volume 88.1 fL (80-100); Platelet Count 182 X10^3/uL (150-400); Red Cell Distribution Width 13.5 % (11.6-14.8); White Blood Cell Count 7.2 X10^3/uL (4.5-11.0)
--- NOTE | 2022-06-24 06:29 | PC.NURSE ---
0600- Patient remains confused. Patient unsure of where she is and how she got here. Patient advised she is in ICU at [facility] but after a few minutes she will ask again. Vitals are stable. Results of MRI discussed with KATY Sullivan. Will monitor.
[2022-06-24 06:36] LABS: BUN Creatinine Ratio 13.8 (6-22); Blood Urea Nitrogen 8 mg/dL (7-17); Calcium 7.3 mg/dL (8.4-10.2); Carbon Dioxide 28 mmol/L (22-32); Chloride 105 mmol/L (98-107); Estimated Glomerular Filt Rate > 60 mL/min (>60); Glucose 77 mg/dL (80-110); HEMOLYSIS < 15 (0-50); Potassium 3.6 mmol/L (3.4-5.1); Sodium 137 mmol/L (137-145)
[2022-06-24 06:56] LABS: Creatine Kinase 4369 U/L (30-135)
--- NOTE | 2022-06-24 07:53 | DI.ECHO.S_ITS ---
[facility]---------+ [facility] +---------+ : : [address] [place] : : : : [id number] : : : : Phone: [phone]---------+ Echocardiogram Report + + :Name: AL CARBALLO Study Date: 06/26/2022 Height: 60 in : :[facility] ReadingLocation: Weight: 165 lb : : Gender: Female BSA: 1.7 m2 : :: 1950 Age: 71 yrs BP: 148/67 mmHg: :Reason For Study: CVA : :Ordering Physician: UMESH, : :DORY Performed By: Evi Sandoval : :Referring: DORY CALVO : + + Interpretation Summary Normal sinus rhythm. Normal LV size and wall thickness; normal wall motion and LV systolic function. EF is 50-55%. Stage I diastolic dysfunction. Normal chamber sizes. No significant valvular abnormalities. No source of embolism found. Specifically no PFO based on bubble study. Compared to prior study 12/20/2020 no significant changes have occurred. Procedure: A two-dimensional transthoracic echocardiogram with color flow and Doppler was performed. The study quality was technically difficult. Comparison is made with the echocardiogram of 12/20/2020. A saline contrast injection was performed to assess for cardiac shunting. The patient was in sinus rhythm with heart rates between 74-85 bpm during the exam. Left Ventricle: The left ventricle is normal in size. Left ventricular wall thickness is borderline increased. The ejection fraction is estimated to be 50-55%. Right Ventricle: The right ventricle is normal in size and function. Atria: The left atrial size is normal. Right atrial size is normal. Injection of contrast documented no interatrial shunt. There is no Doppler evidence for an interatrial shunt. Mitral Valve: The mitral valve is normal in structure and function. There is no mitral regurgitation noted. Aortic Valve: The aortic valve is trileaflet. There is no aortic valve stenosis. There is mild aortic regurgitation. Tricuspid Valve: The tricuspid valve is normal in structure and function. There is trace tricuspid regurgitation. Pulmonary artery pressures cannot be estimated because of the lack of a measurable TR jet velocity. Pulmonic Valve: The pulmonic valve is not well visualized. Great Vessels: The aortic root is normal size. The dimensions of the ascending aorta are normal. The IVC is of normal diameter and collapses greater than 50% with a sniff. This suggests a low right atrial pressure of 3 mm Hg. Pericardium/ Pleura There is no pericardial effusion. There is no pleural effusion. MMode/2D Measurements & Calculations LVIDd: 3.7 cm LVOT diam: 2.0 cm LVIDs: 2.6 cm Ao root diam: 3.0 cm FS: 28.7 % asc Aorta Diam: 3.3 cm IVSd: 0.95 cm Ao Arch Diam (Prox Trans): 2.3 cm LVPWd: 1.1 cm LV hoyos. diameter/BSA (cm/m^2): 2.1 LV sys. diameter/BSA (cm/m^2): 1.5 LA A2 area: 13.2 cm2 RA long axis: 4.0 cm LA A4 area: 12.0 cm2 RA area: 8.4 cm2 LA length (vol): 4.4 cm RA vol: 15.0 ml LA vol: 30.4 ml RA : 8.7 ml/m2 LA vol index: 17.6 ml/m2 IVC diam: 1.0 cm RVD1 (basal): 2.3 cm TAPSE: 2.0 cm Doppler Measurements & Calculations Ao V2 max: 164.0 cm/sec LVOT Max Nolan: 93.8 cm/sec Ao V2 mean: 121.7 cm/sec LV V1 max P.5 mmHg Ao max P.8 mmHg LV V1 VTI: 17.6 cm Ao mean P.4 mmHg ROSE(I,D): 1.9 cm2 Ao V2 VTI: 28.2 cm ROSE(V,D): 1.7 cm2 sev ratio: 0.62 ROSE indexed to BSA (cm^2/m^2): 1.1 MV E max nolan: 47.5 cm/sec PA V2 max: 98.5 cm/sec MV A max nolan: 81.0 cm/sec PA V2 mean: 71.6 cm/sec MV E/A: 0.59 PA mean P.3 mmHg Med Peak E' Nolan: 7.7 cm/sec E/E' med: 6.2 Lat Peak E' Nolan: 8.4 cm/sec E/E' lat: 5.7 E/e' average: 5.9 MV dec time: 0.21 sec SV(LVOT): 53.9 ml Electronically signed by: Cece Archibald M.D. on Reading Physician:06/26/2022 05:35 PM
[2022-06-24 08:00] VITALS: BP 134/69; PULSE 79; RESP 16; TEMP 36.3; O2SAT 96
[2022-06-24 09:06] LABS: Cholesterol 95 mg/dL (140-199); HDL Cholesterol 20 mg/dL (40-60); LDL Cholesterol Calculated 56 mg/dL (<100); Triglycerides 96 mg/dL (35-150)
[2022-06-24 09:08] LABS: Hemoglobin A1C% w Est Avg Glu 5.4 % (4.0-6.0)
--- NOTE | 2022-06-24 09:55 | PT.IIE ---
Current Diagnoses Sepsis, unspecified organism (06/20/22) Surgical History (Last Updated 06/20/22 @ 18:17 by Jann Edwards DO) No pertinent past surgical history Medical History (Last Updated 06/20/22 @ 18:17 by Jann Edwards DO) Chronic sinusitis HTN (hypertension) Sinusitis Vertigo Physical Therapy Inpatient Evaluation/Re-Eval M1 PT/OT-IP Prior Functional Status Start: 06/24/22 11:55 Freq: NEEDED Status: Active Protocol: Document 06/24/22 09:55 AB (Rec: 06/24/22 12:07 AB [email or web address]) Medical Review Prior Functional Status Medical History Reviewed Yes Communication able to make needs known but with confusion Mobility and Gait pt stated that she is independent with all mobilities and ambulation without AD Social History Household Members other Living Arrangements House Number of Floors (Floors) One Floor Number of Stairs To Enter/Railing? 3 steps B rails to enter Home Environment Standard Height Toilet,Tub/ Shower M2 PT-IP Current Condition Start: 06/24/22 11:55 Freq: NEEDED Status: Active Protocol: Document 06/24/22 09:55 AB (Rec: 06/24/22 12:07 AB [email or web address]) Physical Therapy Current Condition Current Condition Evaluation Date 06/24/22 Treatment Diagnosis Covid; CVA; hypothermia with rhabdo; difficulty in walking Onset Date 06/20/22 M3 PT-IP Subjective Start: 06/24/22 11:55 Freq: NEEDED Status: Active Protocol: Document 06/24/22 09:55 AB (Rec: 06/24/22 12:07 AB [email or web address]) Subjective Physical Therapy Visit Type Type Initial Evaluation Visit Start Time 09:55 Visit Stop Time 11:31 Notes pt seen for split visits: 955 to 1028 and 1045 to 1131 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 of 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 Therapy Pain Assessment Pain When Pain Assessed During Mobility Pain Present Pain Present Pain Reported Location Bilateral Foot Scale Used a lot per pt Pain Management Techniques Distraction,Modification of Treatment M4 PT-IP Mobility and Gait Start: 06/24/22 11:55 Freq: NEEDED Status: Active Protocol: Document 06/24/22 09:55 AB (Rec: 06/24/22 12:07 AB [email or web address]) PT-Bed Mobility Assessment Supine to Sit Supine to Sit Standby Assistance PT-Transfer Assessment Sit to and From Stand Sit to and from Stand Moderate Assistance,Maximum Assistance,1 Person Assistance ,Use of Upper Extremities Equipment Transfer Assistive Device Gait Belt,Front Wheeled Walker Orthotic/Prosthetic Devices or Brace: No Transfers Transfer Destination Chair Transfer Technique ambulated Transfer Ability Level of Assist Moderate Assistance,Maximum Assistance,1 Person Assistance ,Use of Upper Extremities Comments Mobility Comments O2 sat 99%. completed supine to sit SBA with HOB elevated. completed sit to stand mod A to max and cues and ambulated in room using FWW 12ft mod to max A and max cues. c/o bilateral feet pain with weight bearing. agreed to sit up on the chair . positioned on the felix. call light and table placed within reach. Gait Assessment Gait Gait Assistance Required: Moderate Assistance,Maximum Assistance Distance (Feet) 12 Assistive Devices Assistive Device Gait Belt,Front Wheeled Walker Orthotic/Prosthetic Devices or Brace: No Gait Deviations General Gait Pattern Decreased Stride Length, Decreased Feet Clearance, Flexed Trunk,Step-to Gait Factors Limiting Gait Function Factors Limiting Gait Function Decreased Activity Tolerance, Decreased Strength,Difficulty Following Directions,Limited Range of Motion,Pain,Poor Balance,Poor Safety Awareness PT-Balance Assessment Sitting Balance and Reactions Static Sitting Balance Ability Good Dynamic Sitting Balance Ability Good Standing Balance and Reactions Static Standing Balance Ability Poor Dynamic Standing Balance Ability Poor Device Used FWW M5 PT-IP Objective Assessments Start: 06/24/22 11:55 Freq: NEEDED Status: Active Protocol: Document 06/24/22 09:55 AB (Rec: 06/24/22 12:07 AB [email or web address]) Orientation Orientation/Cognition Level of Alertness Alert Orientation Name Safety Awareness Decreased Safety Awareness Memory Description Short Term Impaired Comments with confusion Gross Range of Motion Lower Extremity ROM Assessment Within Functional Limits Strength Lower Extremity Strength Hip 4-/5 Knee 3+/5 Sensation Assessment Sensation Gross Sensation Right LE Impaired,Left LE Impaired Sensation Description Numbness,[place] Muscle Tone Muscle Tone WNL Yes M6 PT-IP Treatment Start: 06/24/22 11:55 Freq: NEEDED Status: Active Protocol: Document 06/24/22 09:55 AB (Rec: 06/24/22 12:07 AB [email or web address]) Physical Therapy Treatment Education Education Provided Safety M7 PT-IP Assessment and Plan Start: 06/24/22 11:55 Freq: NEEDED Status: Active Protocol: Document 06/24/22 09:55 AB (Rec: 06/24/22 12:07 AB [id number]) PT Summary Assessment and Plan Potential Rehabilitation Potential Fair Status of Condition at Evaluation Evolving Summary Impairments Pain,ROM,Strength,Balance, Coordination,Sensation,Tone, Cognition,Bed Mobility, Transfers,Gait,Activity Tolerance Assessment Summary pt admitted to the hospital for hypothermia with acute rhabdomyolysis and also found to have Covid. pt's recent MRI showed L cerebellar lacunar infarct. pt requiring mod to max A with mobility using FWW with c/o increase bialteral feet pain with weight bearing and unable to ambulate much. pt will require SNF rehab at this time . will continue to assess progress. Goals Bed Mobility Goal Independent Transfer Goal Minimal Assistance,Front Wheeled Walker Gait Goal Minimal Assistance,Front Wheel Walker Gait Distance 50 Other Goals improve transfers and ambulation using FWW 100 ft SBA up/down 3 steps B rails SBA Days to Meet Goals 10 Frequency of Treatment Frequency Of Treatment Once a Day Treatment Plan Physical Therapy Treatment Plan Bed Mobility Training,Transfer Training,Gait Training, Therapeutic Exercise,Balance Retraining,Post Op Education, Discharge Planning,Hot or Cold Pack,Neuromuscular Re-ed, Coordination Retraining,Manual Therapy Precautions Other Precautions Covid Recommendations To Nursing Amount of Assist Needed 1 Person Assist Discharge Recommendations PT Discharge Recommendations SNF Rehab Equipment Needed for Home Before FWW if pt goes home Discharge Transportation Needs at Discharge Wheelchair/Cabulance
[2022-06-24] MEDS: ENOXAPARIN 40 MG/0.4 ML SYRINGE SUBCUT (10:29)
[2022-06-24] MEDS: POTASSIUM CHLORIDE 20 MEQ TAB 40 MEQ PO ×2 (10:29→14:05)
[2022-06-24] MEDS: ASPIRIN EC 81 MG TABLET PO (10:30)
--- NOTE | 2022-06-24 11:48 | CM.DPC ---
Addendum entered by Kamryn Underwood R.N. 06/24/22 14:00: Spoke with Gisell @ [facility] and pt not accepted due to mental status, discharge plan, and isolation. If pt improves and discharge plan solidified, can re-assess. ADJ Addendum entered by Kamryn Underwood R.N. 06/24/22 13:46: DCP received phone call from pt son, Josr this afternoon. . Josr provided more information on pt background. Josr states that there is no POA for this pt and that he is not aware of any financial information. Josr states that he would be willing to travel up to [place] to help with discharge plan of getting pt back into a livable home and situation. MATHIEUP explained to him that the plan is to send pt to SNF rehab but the main concern would be sending her home if there is no electricity. Josr states he will do whatever he can to make sure there is a good discharge plan. Josr states that he would like to be the main contact for information as his brother is unreliable and does not have proper transportation. Josr did state that pt baseline mental status is some confusion and that pt will ask same question over and over as she forgot she asked it. He also states that it is normal for pt to have limitless chatting. DCP verbalized the importance of getting POA information and discussing with pt her wishes. Josr in agreement. Josr also in agreement with rehab and will be able to help out once he can know more information on plan. Josr thankful for the call. DCP to continue to follow and keep Josr updated as much as possible. DCP still unable to get ahold of Adebayo. DCP spoke with RN and she states that pt wants cellphone and other belongings to be brought up to the hospital but that Adebayo is unable to do that due to transportation. Kamryn Underwood RN/MATHIEUP Original Note: DCP Cont: DCP spoke with brother, Jann, this morning to discuss discharge needs and to get more background on pt living situation. Per Jann, pt is a hoarder and has a dilapidated home with a bad roof. Jann states that he normally lives in [place] but is living in [place] until end of July. Jann states that he has been trying to get help to help update the home but has been unsuccessful. Jann provided this DCP with another number for pt son, Adebayo ([phone]). Jann states that pt has another son that lives in [place] but does not talk to much. Jann states that he is available to help answer any further questions and can help with caregiving once back in [place]. DCP thankful for discussion. DCP spoke with Elke, PT and it is recommended that pt will need SNF rehab. DCP attempted to contact Adebayo to discuss discharge plan. Unable to leave message due to voicemail box not setup. DCP will attempt to contact at a later time. DCP contact Gisell @ [facility] for referral. Gisell looking into case. Referral will be sent to [facility]. PEDRO to continue to follow. Kamryn Underwood RN/MATHIEUP
[2022-06-24 13:45] VITALS: BP 151/74; PULSE 72; RESP 21; TEMP 36.8; O2SAT 98
[2022-06-24] MEDS: ACETAMINOPHEN 325 MG TABLET 650 MG PO (14:05)
[2022-06-24 17:00] VITALS: BP 142/99; PULSE 76; RESP 22; TEMP 36.4; O2SAT 99
--- NOTE | 2022-06-24 17:33 | PM.PN.1 ---
Subjective Subjective Date Patient Seen: 06/24/22 Time Patient Seen: 08:00 Interval history: MRI showed acute stroke in cerebellum overnight. Started aspirin. Today she is markedly improved in terms of her mental status, with no further hallucinations, much improved orientation. Suspect she is at her baseline with some cognitive impairment, perhaps mild. Exam Vital Signs (past 8 hours): - 06/24/22 13:45 06/24/22 10:00 Temperature 98.2 F Pulse Rate 72 Respiratory Rate 21 Blood Pressure 151/74 H Pulse Oximetry 98 Oxygen Delivery Method Room Air Oxygen Flow Rate 0 Oxygen Delivery Method Room Air Oxygen Flow Rate 0 Narrative Exam Narrative: General:? no acute distress Lungs:? clear bilaterally Cardio: systolic murmur, regular rate and rhythm Abdomen: soft nontender, nondistended, no organomegaly EXT: lower extremity edema 2+ Neuro:alert, oriented x2 Objective Labs Result Diagrams: 06/24/22 05:45 06/24/22 05:45 Labs: Laboratory Results - last 24 hr 06/24/22 06/24/22 06/24/22 05:45 05:45 05:45 WBC 7.2 RBC 3.40 L Hgb 10.3 L Hct 30.0 L MCV 88.1 MCH 30.4 MCHC 34.5 RDW 13.5 Plt Count 182 Sodium 137 Potassium 3.6 Chloride 105 Carbon Dioxide 28 BUN 8 Creatinine 0.58 Estimated GFR > 60 BUN/Creatinine Ratio 13.8 Glucose 77 L Hemoglobin A1c Calcium 7.3 L Magnesium 2.0 Total Creatine Kinase 4369 H D Triglycerides Cholesterol LDL Cholesterol, Calc HDL Cholesterol 06/24/22 06/24/22 05:45 05:45 WBC RBC Hgb Hct MCV MCH MCHC RDW Plt Count Sodium Potassium Chloride Carbon Dioxide BUN Creatinine Estimated GFR BUN/Creatinine Ratio Glucose Hemoglobin A1c 5.4 Calcium Magnesium Total Creatine Kinase Triglycerides 96 Cholesterol 95 L LDL Cholesterol, Calc 56 HDL Cholesterol 20 L PFSH Medical History (Updated 06/20/22 @ 18:18 by Marielos Arceo DO) Chronic sinusitis HTN (hypertension) Sinusitis Vertigo Surgical History (Updated 06/20/22 @ 18:17 by Jann Edwards DO) No pertinent past surgical history Social History household members: other Smoking Status: Former smoker Assessment & Plan Assessment & Plan narrative: 71 F admitted with hypothermia due to exposure, septic shock possibly due to bacterial pneumonia. 1. Hypothermia with acute rhabdomyolysis and CRYSTAL, resolving - patient presented with temperature of 84 degrees. Now normothermic after bear hugger placed and resolved. - CK near 10,000 on admission labs,, now downtrended. - abel in place, follow urine output closely. Creatinine 1.77 on admit, now resolved - stable for regular floor. - UA consistent with rhabdo, 5-10 WBC as well reflexed for culture. 2. Septic and hypovolemic shock superimposed bacterial pneumonia or acute cystitis, resolved - continue zosyn empirically, cultures pending. CXR with multifocal pneumonia, mild leukocytosis, but UA with 5-10 WBC as well. - now off of levophed. 3. acute metabolic encephalopathy, any hypotension requiring pressor support. -ammonia normal -significant improvement in encephalopathy today -likely secondary to infection, hypothermia, and stroke, suspect patient at mental status baseline 4. Acute CVA -noted small cerebellar infarct on MRI -suspect secondary to covid or hypothermia -ordered CTA head/neck -ordered aspirin/statin -ordered PT/OT -trend NIH scales -check lipids, a1c 5. COVID 19 pneumonia - not currently hypoxic, presumed old infection as she reportedly tested positive on 06/05/22. 6. Afib with RVR, resolved - suspect in setting of hypothermia. 7. HTN - reportedly non compliant per PCP. Held in setting of septic shock, restart cautiously if downgraded to floor today. 8. Hypokalemia, improved -continue repletion PRN 9. Myocardial injury - elevated troponin at 0.065, likely in setting of demand. continue to follow, repeat EKG as noted above. Code: Full, she declines surrogate decision maker at this time after discussion. Per patient's PCP she has two sons whom are estranged. COVID-19 COVID-19 status: Positive Time Spent With Patient Critical Care time: I spent a total of [] minutes of critical care time on this patient's care today; this time is exclusive of procedural time. Quality VTE Deep Vein Thrombosis/Pulmonary Embolism Present on Admission: No
[2022-06-24] MEDS: FUROSEMIDE 40 MG/4 ML VIAL IV (17:34)
[2022-06-24 21:00] VITALS: BP 133/81; PULSE 83; RESP 18; TEMP 36.4; O2SAT 99
[2022-06-24] MEDS: ATORVASTATIN 20 MG TABLET 40 MG PO (21:40)
[2022-06-24] MEDS: SODIUM CHLORIDE 0.9% FLUSH 10 ML IV (21:41)
[2022-06-24] MEDS: HYDROMORPHONE 0.5 MG INJ IV (21:54)
--- NOTE | 2022-06-24 23:01 | PC.NURSE ---
Patient is alert but oriented only to self, birthdate and place. Has some difficulty with word finding and rambles in conversation. NIH = 3. No suspicious behavior and no hallucinations at this time. Breath sounds diminished at bases with RA sat of 99%. Denies SOB. HRR. Denies nausea. BT present and abdomen is soft. Voiding frequently and complains of urgency but no dysuria. Discovered patient had received IV Lasix at 1734. Patient is impulsive and doesn't remember to call for staff assistance. Complains of bilateral foot pain whenever up so external catheter placed for night. Is able to turn herself in bed. Getting out of bed with walker and 1 assist. Medicated with Dilaudid for 4/10 bilateral foot pain. Has 2+ bilateral LE edema and both feet are reddened in appearance. Fall risk score is high and bed alarm is activated. Maintained on covid precautions.
[2022-06-25] MEDS: SODIUM CHLORIDE 0.9% FLUSH 10 ML IV ×4 (01:53→20:17)
[2022-06-25 03:40] VITALS: BP 143/67; PULSE 72; RESP 16; TEMP 36.2; O2SAT 96
[2022-06-25] MEDS: PIPERACILLIN/TAZO 3.375 GM in SODIUM CHLORIDE 0.9% 100 ML IV ×2 (04:38→12:54)
[2022-06-25] MEDS: SODIUM CHLORIDE 0.9% 250 ML 21 ML IV (04:57)
[2022-06-25 05:14] LABS: Hematocrit 31.9 % (36-46); Mean Corpuscular HGB Conc 34.6 % (30-36); Mean Corpuscular Hemoglobin 30.4 PG (26-34); Mean Corpuscular Volume 87.9 fL (80-100); Platelet Count 200 X10^3/uL (150-400); Red Blood Cell Count 3.63 X10^6/uL (4.0-5.2); Red Cell Distribution Width 13.4 % (11.6-14.8); White Blood Cell Count 6.9 X10^3/uL (4.5-11.0)
[2022-06-25 05:25] LABS: BUN Creatinine Ratio 12.9 (6-22); Blood Urea Nitrogen 8 mg/dL (7-17); Calcium 7.7 mg/dL (8.4-10.2); Carbon Dioxide 33 mmol/L (22-32); Chloride 101 mmol/L (98-107); Estimated Glomerular Filt Rate > 60 mL/min (>60); Glucose 92 mg/dL (80-110); HEMOLYSIS < 15 (0-50); Magnesium 1.8 mg/dL (1.6-2.3); Sodium 137 mmol/L (137-145)
[2022-06-25 05:31] LABS: Creatine Kinase 2443 U/L (30-135)
[2022-06-25 05:33] LABS: NT-proBNP (BNP-Adult 18+) 1860 pg/mL (<125)
[2022-06-25 07:00] VITALS: BP 144/72; PULSE 76; RESP 18; TEMP 36.8; O2SAT 98
[2022-06-25] MEDS: ACETAMINOPHEN 325 MG TABLET 650 MG PO ×2 (09:46→15:48)
[2022-06-25] MEDS: ENOXAPARIN 40 MG/0.4 ML SYRINGE SUBCUT (09:47)
[2022-06-25] MEDS: FUROSEMIDE 40 MG/4 ML VIAL IV (09:48)
[2022-06-25] MEDS: ASPIRIN EC 81 MG TABLET PO (09:48)
--- NOTE | 2022-06-25 11:10 | ST.IPSLE ---
Visit Care Team Role Provider Type Pippa Mera MD Primary Care Provider Physician Specialty: Family Practice Address: [facility] [place], [address] Email: [email or web address] Patrick Jiménez MD Other Providers Physician Specialty: Medical Address: Phone: Fax: Email: Elsie Mcghee MD Other Providers Physician Specialty: Medical Address: Phone: Fax: Email: Chas Larson MD Other Providers Physician Specialty: Medical Address: [facility] [place], [address] Phone: Fax: Email: Sheila Guevara MD Other Providers Physician Specialty: Internal Medicine Address: Phone: Fax: Email: Josr Tejada MD Other Providers Physician Specialty: Medical Address: Phone: Fax: Email: Savannah Tristan MD Other Providers Physician Specialty: Internal Medicine Address: [address] [place] [address], [address] Phone: Fax: Email: [email or web address] Pizarro MD Other Providers Physician Specialty: Internal Medicine Address: Phone: Fax: Email: Chandra Espinosa MD Other Providers Physician Specialty: Medical Address: Phone: Fax: Email: Sunil Carroll MD Other Providers Physician Specialty: Internal Medicine Address: [address] [place], [address] Phone: Fax: Email: Mynor Thapa MD Other Providers Physician Specialty: Medical Address: [address] [place] [address], [address] Phone: Fax: Email: Lio Burk MD Other Providers Physician Specialty: Medical Address: Phone: Fax: Email: Tori Amor Other Providers Physician Specialty: Medical Address: Phone: Fax: Email: Marielos Arceo DO Emergency Provider Physician Referring Provider Specialty: Emergency Medicine Address: [address] [place] [address], [address] Email: [email or web address] Jann Edwards DO Admit Provider Physician Attending Provider Specialty: Internal Medicine Address: [address] [place] [address], [address] Email: [email or web address] Current Diagnoses Sepsis, unspecified organism (06/20/22) Past Medical History (Last Updated 06/20/22 @ 18:17 by Jann Edwards DO) Chronic sinusitis (Medical) HTN (hypertension) (Medical) Sinusitis (Medical) Vertigo (Medical) Speech-Language Pathology Speech/Language Eval DATA WAREHOUSE ADMINISTRATOR Adult Cognitive Linguistic Eval Start: 06/25/22 10:49 Freq: Status: Active Protocol: Document 06/25/22 10:49 CELE (Rec: 06/25/22 11:10 ZS [id number]) Adult Cognitive Linguistic Evaluation Session Time Visit Start Time 09:45 Visit Stop Time 10:45 Total Visit Minutes 60 Visit Information Visit Number Initial Evaluation Setting Assessment Location Acute Care Visit Type Note Type Initial evaluation Next Note Type Next Note Type Treatment Note Patient Information Identification Type Name Patient History Per H&P: This is a 71 year old female, PMH of HTN recently fired by her primary care provider due to non- compliance with treatments, recent COVID 19 infection diagnosed likely around 06/01 who was found by her neighbor on the floor who picked her up on the floor and EMS found her on the toilet without heat on, she was found on the toilet, per EMS she was cyanotic, with a temperature of 83 degrees. She complained of constipation and abdominal discomfort initially. She is unable to give much history and is extremely lethargic, unable to answer questions meaningfully, but does answer simple questions and states she is in the hospital and is here because she blacked out. She denies any shortness of breath or chest pain, nausea or vomiting or abdominal pain currently. She has no joint pains or headaches. Imaging including head CT, C spine CT, CXR, and CT chest abd pelvis was only notable for bilateral patchy infiltrates in her lungs. COVID 19 testing was positive. MRI completed on 06/23/22 and progress note from 06/24/22 indicated pt had an acute stroke in cerebellum overnight . Started aspirin. Today she is markedly improved in terms of her mental status, with no further hallucinations, much improved orientation. Suspect she is at her baseline with some cognitive impairment, perhaps mild. Language(s) Spoken in the Home Polish Hearing Hearing Level Normal Vision Vision Status Impaired Comments Reading glasses required, not present in hospital Subjective Patient Report Pt was seated upright in bed when DATA WAREHOUSE ADMINISTRATOR arrived. DATA WAREHOUSE ADMINISTRATOR observed pt take PO medications in applesauce. She was unable to swallow potassium pill, though stated this is consistent with baseline and she has difficulty swallowing all pills. Pt observed to spontaneously use chin tuck and successfully swallowed 3 smaller pills with water from a straw cup. No overt signs or symptoms of aspiration observed while taking medications. Pt communicated well with NSG and DATA WAREHOUSE ADMINISTRATOR, with no word finding difficulty and speech sounds WNL. Pt stated she is not having difficulty with speech or swallowing at this time. She is alert and oriented x3. Mental Status Alert,Responsive,Cooperative Assessment Oral Motor Examination Completed Yes Results Structures were symmetrical at rest and in motion. Tongue, lip, and jaw strength and ROM were WNL. Some missing dentition, though pt reports she does not have difficulty chewing. Structure and function of oral mechanism was WNL for the purposes of speech and swallowing. Informal Assessment Expressive Language Normal Yes Pragmatic Language Normal Yes Speech Normal Yes Cognition Normal No Formal Assessment Standardized Test/Screener Type [facility] Status ([facility]) Administration Complete Results Results of the SLUMS place pt' s score at 7/30, which falls within the dementia range. Pt exhibited significant difficulty with math and number manipulation questions, in addition to errors in clock drawing and memory tasks . Pt identified the date but did not know the day of the week. She referenced the clock in the room as she completed her clock drawing, but did not complete the clock as she got frustrated with how difficult the task felt. She identified errors across all tasks, though was unable to correct them; with the exception of self-correction on shape identification task. Significant difficulty with memory-related tasks, though improvement noted in functional tasks (e.g., remembering details of the story vs. remembering a list of items). Additionally, pt commented on resemblance between DATA WAREHOUSE ADMINISTRATOR and DATA WAREHOUSE ADMINISTRATOR's mother, however, pt is not known to DATA WAREHOUSE ADMINISTRATOR or DATA WAREHOUSE ADMINISTRATOR's mother. Provided education regarding stroke, recovery following stroke, and purpose of cognitive screening tool. Pt lives alone and would likely experience difficulty with medication management and post-discharge care instructions based on performance on SLUMS assessment. Recommend placement in inpatient care rehab or at home with home health as pt recovers. Recommend speech therapy to provide education and resources for cognitive deficits, especially as it relates to medical care and ADLs. Findings/Results Language Function Within normal limits Cognitive Function Moderately impaired Cognitive Communication Deficits Self-awareness of Cognitive- Situational awareness ( Communication Deficits recognition of problem in context;in real time) Prognosis Prognosis Fair Based on Cognitive status,Duration of symptoms/severity,Time since onset Plan of Care Speech-Language Treatment Yes Frequency 1x per day Duration duration of stay at Patient/Caregiver Education Described results of evaluation,Patient expressed understanding of evaluation, Patient expressed agreement with goals and treatment plans ,Patient requires further education/training Short Term Goals 1. Pt will participate in education regarding stroke and stroke recovery. 2. Pt will demonstrate independent use of external memory strategies to increase success in completion of ADLs. Discharge Recommendations Inpatient rehab facility,Home with Home Health
[2022-06-25 12:30] VITALS: BP 146/88; PULSE 77; RESP 14; TEMP 36.9; O2SAT 99
--- NOTE | 2022-06-25 12:30 | PT.IPTN ---
Current Diagnoses Sepsis, unspecified organism (06/20/22) Physical Therapy Treatment Note M2 PT-IP Current Condition Start: 06/24/22 11:55 Freq: NEEDED Status: Active Protocol: Document 06/25/22 11:45 DCW (Rec: 06/25/22 12:30 DCW [id number]) Physical Therapy Current Condition Current Condition Evaluation Date 06/24/22 Treatment Diagnosis Covid; CVA; hypothermia with rhabdo; difficulty in walking Onset Date 06/20/22 M3 PT-IP Subjective Start: 06/24/22 11:55 Freq: NEEDED Status: Active Protocol: Document 06/25/22 11:45 DCW (Rec: 06/25/22 12:30 DCW [id number]) Subjective Physical Therapy Visit Type Type Treatment Note Visit Start Time 11:45 Visit Stop Time 12:20 Total Visit Minutes 35 Notes RN removed Covid precautions, pt testing positive 20 days ago Number of TAILING MACHINE OPERATOR Visits 0 Therapy Pain Assessment Pain When Pain Assessed During Mobility Pain Present Pain Present Pain Reported Location Bilateral Foot Intensity 7 Scale Used Numeric (0 - 10) Pain Management Techniques Distraction,Modification of Treatment M4 PT-IP Mobility and Gait Start: 06/24/22 11:55 Freq: NEEDED Status: Active Protocol: Document 06/25/22 11:45 DCW (Rec: 06/25/22 12:30 DCW [id number]) PT-Bed Mobility Assessment Supine to Sit Supine to Sit Standby Assistance PT-Transfer Assessment Sit to and From Stand Sit to and from Stand Contact Guard Assistance,1 Person Assistance Equipment Transfer Assistive Device Gait Belt,Front Wheeled Walker Orthotic/Prosthetic Devices or Brace: No Comments Mobility Comments Pt on BSC upon therapist entrance to room. Pt stood with verbal cues for hand placement CGA while RN performed pericare. Pt able to stand SBA both with and without use of 4WW Gait Assessment Gait Gait Assistance Required: Minimum Assistance Distance (Feet) 10 Assistive Devices Assistive Device None,Gait Belt Factors Limiting Gait Function Factors Limiting Gait Function Decreased Activity Tolerance, Decreased Strength,Pain,Poor Balance,Poor Safety Awareness Comments Gait Comments Pt ambulated initially BSC to recliner 5' FWW SBA. After resting feet, was able to ambulate ELECTRICAL CAD DESIGNER /s FWW 10' in room, returned to recliner. PT-Balance Assessment Standing Balance and Reactions Static Standing Balance Ability Fair Dynamic Standing Balance Ability Fair Device Used FWW M5 PT-IP Objective Assessments Start: 06/24/22 11:55 Freq: NEEDED Status: Active Protocol: Document 06/24/22 09:55 AB (Rec: 06/24/22 12:07 AB [id number]) Orientation Orientation/Cognition Level of Alertness Alert Orientation Name Safety Awareness Decreased Safety Awareness Memory Description Short Term Impaired Comments with confusion Gross Range of Motion Lower Extremity ROM Assessment Within Functional Limits Strength Lower Extremity Strength Hip 4-/5 Knee 3+/5 Sensation Assessment Sensation Gross Sensation Right LE Impaired,Left LE Impaired Sensation Description Numbness,[employer] Muscle Tone Muscle Tone WNL Yes M6 PT-IP Treatment Start: 06/24/22 11:55 Freq: NEEDED Status: Active Protocol: Document 06/25/22 11:45 DCW (Rec: 06/25/22 12:30 DCW [id number]) Physical Therapy Treatment Other Treatments Other Treatment Performed Ankle pumps, LAQ, standing marching M7 PT-IP Assessment and Plan Start: 06/24/22 11:55 Freq: NEEDED Status: Active Protocol: Document 06/25/22 11:45 DCW (Rec: 06/25/22 12:30 DCW [id number]) PT Summary Assessment and Plan Summary Impairments Pain,ROM,Strength,Balance, Coordination,Sensation,Tone, Cognition,Bed Mobility, Transfers,Gait,Activity Tolerance Assessment Summary Pt moving better than yesterday, able to perform sit <->stand and ambulation with signficantly less assistance. SBA with ambulation using FWW, pt complains of continued fairly intense bilateral foot pain, left worse than right. After performing TherEx, pt feet feeling good enough to attempt ambulating without an assistive device. Pt ambulated using hand-hold assist 10' inside room, noted she actually felt pretty good. Goals Bed Mobility Goal Independent Transfer Goal Minimal Assistance,Front Wheeled Walker Gait Goal Minimal Assistance,Front Wheel Walker Gait Distance 50 Other Goals improve transfers and ambulation using FWW 100 ft SBA up/down 3 steps B rails SBA Days to Meet Goals 10 Frequency of Treatment Frequency Of Treatment Once a Day Treatment Plan Physical Therapy Treatment Plan Bed Mobility Training,Transfer Training,Gait Training, Therapeutic Exercise,Balance Retraining,Post Op Education, Discharge Planning,Hot or Cold Pack,Neuromuscular Re-ed, Coordination Retraining,Manual Therapy Precautions Other Precautions Covid, RN removed steph precautions, pt 20 days s/p initial positive test Recommendations To Nursing Amount of Assist Needed 1 Person Assist Discharge Recommendations PT Discharge Recommendations Home vs SNF Equipment Needed for Home Before FWW if pt goes home Discharge Transportation Needs at Discharge Private Vehicle,Wheelchair/ Cabulance
[2022-06-25] MEDS: POTASSIUM CHLORIDE 20 MEQ/15 ML UDC 40 MEQ PO ×2 (12:54→17:34)
--- NOTE | 2022-06-25 13:11 | CM.DPC ---
DCP Cont: DCP spoke with pt son, Josr, today to update him on current pt status and to discuss discharge plan. Josr verbalizes that he has been in contact with people here in town to see if they could go over to pt house to give him an assessment of the current living situation. Josr wanting to talk to the MD so that he could hear from the doctor exactly what is going on. (This DCP verbalized this to Dr. Garcia). DCP verbalized that [facility] has denied this pt due to discharge plan following SNF and pt mental status. Pt son hopeful that some place can accept the pt so that he has time to get up to [place] to assist with home plan. Josr transferred to pt room telephone for conversation with pt. Per RN, pt mental status has improved but still somewhat confused. Not sure if this is pt baseline. DCP continuing to work with family and SNF search. Per PT, pt is now Home VS. SNF. If pt can go home, would need home health order and to make sure electricity is back on at the home. Josr assisting with this. [facility]. Kamryn Underwood, RN/DCP
--- NOTE | 2022-06-25 13:42 | PM.PN.1 ---
Subjective Subjective Date Patient Seen: 06/25/22 Time Patient Seen: 08:00 Interval history: She is much less confused. She does note some swelling in her legs which is bothering her. Exam Vital Signs (past 8 hours): - 06/25/22 07:00 06/25/22 12:30 Temperature 98.3 F 98.4 F Pulse Rate 76 77 Respiratory Rate 18 14 Blood Pressure 144/72 H 146/88 H Pulse Oximetry 98 99 Oxygen Flow Rate 0 0 Oxygen Delivery Method Room Air Oxygen Flow Rate 0 Narrative Exam Narrative: General:? no acute distress Lungs:? clear bilaterally Cardio: systolic murmur, regular rate and rhythm Abdomen: soft nontender, nondistended, no organomegaly EXT: lower extremity edema 1+ Neuro:alert, oriented x2 Objective Labs Result Diagrams: 06/25/22 04:45 06/25/22 04:45 Labs: Laboratory Results - last 24 hr 06/25/22 06/25/22 06/25/22 04:45 04:45 04:45 WBC 6.9 RBC 3.63 L Hgb 11.0 L Hct 31.9 L MCV 87.9 MCH 30.4 MCHC 34.6 RDW 13.4 Plt Count 200 Sodium 137 Potassium 3.0 L Chloride 101 Carbon Dioxide 33 H BUN 8 Creatinine 0.62 Estimated GFR > 60 BUN/Creatinine Ratio 12.9 Glucose 92 Calcium 7.7 L Magnesium 1.8 Total Creatine Kinase NT-Pro-B Natriuret Pep 1860 H 06/25/22 04:45 WBC RBC Hgb Hct MCV MCH MCHC RDW Plt Count Sodium Potassium Chloride Carbon Dioxide BUN Creatinine Estimated GFR BUN/Creatinine Ratio Glucose Calcium Magnesium Total Creatine Kinase 2443 H D NT-Pro-B Natriuret Pep PFSH Medical History (Updated 06/20/22 @ 18:18 by Marielos Arceo DO) Chronic sinusitis HTN (hypertension) Sinusitis Vertigo Surgical History (Updated 06/20/22 @ 18:17 by Jann Edwards DO) No pertinent past surgical history Social History household members: other Smoking Status: Former smoker Assessment & Plan Assessment & Plan narrative: 71 F admitted with hypothermia due to exposure, septic shock possibly due to bacterial pneumonia. 1. Acute CVA -noted small cerebellar infarct on MRI -suspect secondary to covid or hypothermia -ordered CTA head/neck which showed no acute process -ordered aspirin/statin -ordered PT/OT -checked lipids, a1c 2. Acute metabolic encephalopathy, any hypotension requiring pressor support. -ammonia normal -significant improvement in encephalopathy today -likely secondary to infection, hypothermia, and stroke, suspect patient at mental status baseline 3. Hypothermia with acute rhabdomyolysis and CRYSTAL, resolved - patient presented with temperature of 84 degrees. Now normothermic after bear hugger placed and resolved. - CK near 10,000 on admission labs,, now downtrended. - abel in place, follow urine output closely. Creatinine 1.77 on admit, now resolved - stable for regular floor. - UA consistent with rhabdo, 5-10 WBC as well reflexed for culture. 4. Septic and hypovolemic shock superimposed bacterial pneumonia or acute cystitis, resolved - continue zosyn empirically, cultures pending. CXR with multifocal pneumonia, mild leukocytosis, but UA with 5-10 WBC as well. - now off of levophed. 5. COVID 19 pneumonia - not currently hypoxic, presumed old infection as she reportedly tested positive on 06/05/22. 6. Afib with RVR, resolved - suspect in setting of hypothermia. 7. HTN - reportedly non compliant per PCP. Held in setting of septic shock, restart cautiously if downgraded to floor today. 8. Hypokalemia, improved -continue repletion PRN 9. Myocardial injury - elevated troponin at 0.065, likely in setting of demand. continue to follow, repeat EKG as noted above. Code: Full, she declines surrogate decision maker at this time after discussion. Per patient's PCP she has two sons whom are estranged. COVID-19 COVID-19 status: Positive Time Spent With Patient Critical Care time: I spent a total of [] minutes of critical care time on this patient's care today; this time is exclusive of procedural time. Quality VTE Deep Vein Thrombosis/Pulmonary Embolism Present on Admission: No
[2022-06-25 15:39] VITALS: BP 132/70; PULSE 72; RESP 13; TEMP 36.6; O2SAT 98
[2022-06-25] MEDS: OXYCODONE/ACETAMINOPHEN 5/325 TABLET 1 TAB PO (17:38)
[2022-06-25 20:15] VITALS: BP 162/78; PULSE 73; RESP 18; TEMP 36.7; O2SAT 98
[2022-06-25] MEDS: ONDANSETRON 4 MG/2 ML INJ IV (20:15)
[2022-06-26 00:53] VITALS: BP 149/70; PULSE 73; RESP 16; TEMP 36.2; O2SAT 95
[2022-06-26] MEDS: OXYCODONE/ACETAMINOPHEN 5/325 TABLET 1 TAB PO ×2 (03:25→23:09)
[2022-06-26 04:00] VITALS: BP 152/78; PULSE 74; RESP 21; TEMP 36.1; O2SAT 97
--- NOTE | 2022-06-26 06:48 | PC.NURSE ---
[employer] Consultant Note-Patient is oriented x3, remembering some recent events that led to hospitalization, is somewhat suspicious and makes comments about just leaving Percocet given for bilateral foot pain, Zofran given for nausea, both effective.
[2022-06-26 08:00] VITALS: BP 148/67; PULSE 80; RESP 21; TEMP 36; O2SAT 97
[2022-06-26] MEDS: FUROSEMIDE 40 MG/4 ML VIAL IV (08:51)
[2022-06-26] MEDS: ENOXAPARIN 40 MG/0.4 ML SYRINGE SUBCUT (08:51)
[2022-06-26] MEDS: ASPIRIN EC 81 MG TABLET PO (08:52)
[2022-06-26 10:52] LABS: BUN Creatinine Ratio 8.2 (6-22); Blood Urea Nitrogen 6 mg/dL (7-17); Calcium 8.4 mg/dL (8.4-10.2); Carbon Dioxide 36 mmol/L (22-32); Chloride 97 mmol/L (98-107); Estimated Glomerular Filt Rate > 60 mL/min (>60); Glucose 119 mg/dL (80-110); HEMOLYSIS < 15 (0-50); Magnesium 1.7 mg/dL (1.6-2.3); Potassium 3.8 mmol/L (3.4-5.1); Sodium 137 mmol/L (137-145)
--- NOTE | 2022-06-26 11:53 | PT.IPTN ---
Current Diagnoses Sepsis, unspecified organism (06/20/22) Physical Therapy Treatment Note M2 PT-IP Current Condition Start: 06/24/22 11:55 Freq: NEEDED Status: Active Protocol: Document 06/26/22 11:27 SP (Rec: 06/26/22 14:06 SP [id number]) Physical Therapy Current Condition Current Condition Evaluation Date 06/24/22 Treatment Diagnosis Covid; CVA; hypothermia with rhabdo; difficulty in walking Onset Date 06/20/22 M3 PT-IP Subjective Start: 06/24/22 11:55 Freq: NEEDED Status: Active Protocol: Document 06/26/22 11:27 SP (Rec: 06/26/22 14:06 SP [id number]) Subjective Physical Therapy Visit Type Type Treatment Note Visit Start Time 11:27 Visit Stop Time 11:53 Total Visit Minutes 26 Notes Vitals: supine: BP 140/75 HR 90 SaO2 99% on RA post mobility in chair: 141/74 HR 93 SaO2 93% on RA. Number of SVP RESEARCH AND STRATEGIC ANALYSIS Visits 1 Physical Therapy Visit Comments Patient Comments Pt was agreeable to working with therapy, reports B feet still hurting, little red and still swollen more than her baseline. Therapy Pain Assessment Pain When Pain Assessed During Mobility Pain Present Pain Present Pain Reported Location Bilateral Foot Intensity 6 Scale Used Numeric (0 - 10) Description Acute,Burning,With Movement Pain Behaviors Facial Grimacing Pain Management Techniques Distraction,Modification of Treatment,Re-positioning M4 PT-IP Mobility and Gait Start: 06/24/22 11:55 Freq: NEEDED Status: Active Protocol: Document 06/26/22 11:27 SP (Rec: 06/26/22 14:06 SP [id number]) PT-Bed Mobility Assessment Supine to Sit Supine to Sit Standby Assistance,Head of Bed Elevated,Bedrails PT-Transfer Assessment Sit to and From Stand Sit to and from Stand Contact Guard Assistance, Minimal Assistance,1 Person Assistance,Use of Upper Extremities Equipment Transfer Assistive Device Gait Belt,Front Wheeled Walker Orthotic/Prosthetic Devices or Brace: No Transfers Transfer Destination Chair Transfer Technique ambulated w/ FWW Transfer Ability Level of Assist Minimal Assistance,Moderate Assistance,1 Person Assistance ,Use of Upper Extremities Comments Mobility Comments SVP RESEARCH AND STRATEGIC ANALYSIS instructed BLE exercises assist ROM/circulation pre mobility: AP, HS, quad set x5 each. SVP RESEARCH AND STRATEGIC ANALYSIS removed periwick/ set on room self/towel, notified nursing, noted disposible brief soiled urine. SVP RESEARCH AND STRATEGIC ANALYSIS provided pt cleansing wipes and clean disposible brief per pt request, pt was able complete pericare elevated supine/seated/ standing, SVP RESEARCH AND STRATEGIC ANALYSIS assisted from behind standing what needed while providing CGA. Pt able completed elevated supine>sit, scoot to EOB SBA w/use bed rails. Sit> stand CGA/Min cued for push from bed come full stand and 1 UE use pericare/ other FWW for safet stability. SVP RESEARCH AND STRATEGIC ANALYSIS assisted brief mgt in standing. Pt complete SPT use FWW, cues pivot /back step full with FWW reach back slow descent sit on chair. Pt required seated rest for tiring recovery and B foot pain up to 5/10 from 0/10 at rest in bed. Sit>Stand cues push from chair to FWW (tends to put BUE on FWW pulling back on self) CGA, gait across room and back to chair, slow pacing semi stagger stepping, cued closer to FWW, trunk sway at times CG/ Min A. Stand>sit , scoot back in chair. Elevated BLEs and pt had call light and all needs in reach. Pt unable to assess 3 step stair mgt, low strength at this time. Will continue to assess progress. Gait Assessment Gait Gait Assistance Required: Contact Guard Assist,Minimum Assistance,1 Person Assist Distance (Feet) 30 Assistive Devices Assistive Device Gait Belt,Front Wheeled Walker Orthotic/Prosthetic Devices or Brace: No Gait Deviations General Gait Pattern Antalgic,Decreased Stride Length,Decreased Feet Clearance,Flexed Trunk,Lateral Trunk Lean,Step-to Gait Factors Limiting Gait Function Factors Limiting Gait Function Decreased Activity Tolerance, Decreased Strength,Difficulty Following Directions,Pain,Poor Balance,Poor Safety Awareness Comments Gait Comments Cues for proximity to FWW, increase foot clearance/ stride, breath, core fac to decrease trunk lateral trunk wt shifts during gait. Stair Climbing Assessment Comments Stair Climbing Comments Unable to assess stairs due to B foot pain, low strength, endurance in standing. Will need to complete 3 stairs BHR when able and safe to DC Home. PT-Balance Assessment Sitting Balance and Reactions Static Sitting Balance Ability Good Dynamic Sitting Balance Ability Good Standing Balance and Reactions Static Standing Balance Ability Fair Dynamic Standing Balance Ability Fair Device Used FWW M5 PT-IP Objective Assessments Start: 06/24/22 11:55 Freq: NEEDED Status: Active Protocol: Document 06/24/22 09:55 AB (Rec: 06/24/22 12:07 AB [id number]) Orientation Orientation/Cognition Level of Alertness Alert Orientation Name Safety Awareness Decreased Safety Awareness Memory Description Short Term Impaired Comments with confusion Gross Range of Motion Lower Extremity ROM Assessment Within Functional Limits Strength Lower Extremity Strength Hip 4-/5 Knee 3+/5 Sensation Assessment Sensation Gross Sensation Right LE Impaired,Left LE Impaired Sensation Description Numbness,Pins & Dailey Muscle Tone Muscle Tone WNL Yes M6 PT-IP Treatment Start: 06/24/22 11:55 Freq: NEEDED Status: Active Protocol: Document 06/26/22 11:27 SP (Rec: 06/26/22 14:06 SP [id number]) Physical Therapy Treatment Exercises Exercises Ankle Pumps,Quad Sets,Heel Slides Knee ROM Measurement 80deg B knee flexion AROM Education Education Provided Safety Other Treatments Other Treatment Performed AP, HS, QS supine; Standing august for AROM pre gait. M7 PT-IP Assessment and Plan Start: 06/24/22 11:55 Freq: NEEDED Status: Active Protocol: Document 06/26/22 11:27 SP (Rec: 06/26/22 14:06 SP [id number]) PT Summary Assessment and Plan Potential Rehabilitation Potential Fair Status of Condition at Evaluation Evolving Summary Impairments Pain,ROM,Strength,Balance, Coordination,Sensation,Tone, Cognition,Bed Mobility, Transfers,Gait,Activity Tolerance Progress Towards Goals Progressing Toward Goals,Slow Progress due to Pain,Slow Progress due to Activity Tolerance Assessment Summary Pt improved mobility this tx. SBA bed mob elevate supine> sit SBA, sit<> stand and gait w/ FWW CG- Min A, unable to assess stair mgt this tx due to B foot pain/decreased strength/endurance. Encouraged pt to get up with nursing and use of bathroom. Will continue to assess progress. Recommending SNF to progress strength for mobility. Goals Bed Mobility Goal Independent Transfer Goal Minimal Assistance,Front Wheeled Walker Gait Goal Minimal Assistance,Front Wheel Walker Gait Distance 50 Other Goals improve transfers and ambulation using FWW 100 ft SBA up/down 3 steps B rails SBA Days to Meet Goals 10 Frequency of Treatment Frequency Of Treatment Once a Day Treatment Plan Physical Therapy Treatment Plan Bed Mobility Training,Transfer Training,Gait Training, Therapeutic Exercise,Balance Retraining,Post Op Education, Discharge Planning,Hot or Cold Pack,Neuromuscular Re-ed, Coordination Retraining,Manual Therapy Other Recommendations and Next Treatment bed mob, transfers, gait w/FWW Focus further distance, stairs w/ BHR when safe and able. Precautions Other Precautions James, RN removed covid precautions, pt 20 days s/p initial positive test Recommendations To Nursing Amount of Assist Needed 1 Person Assist Discharge Recommendations PT Discharge Recommendations SNF Rehab Equipment Needed for Home Before FWW if pt goes home Discharge Transportation Needs at Discharge Private Vehicle,Wheelchair/ Cabulance
[2022-06-26 12:00] VITALS: BP 138/75; PULSE 63; RESP 21; TEMP 36.1; O2SAT 93
--- NOTE | 2022-06-26 13:47 | CM.DPNOTE ---
DCP Continued: CM met with patient at the bedside and explained role. patient was alert and oriented x3 however did repeat herself often when discussing DC planning. CM spoke with patient about SNF planning and looking at potential SNF choices. [facility], [facility] re-reviewing for possible admission. CM spoke with patient and she stated she doesn't want to go to SNF but if she has to she will. patient would prefer home with HH and her heating turned back on. [facility], [facility] is reviewing but is prioritizing [facility] DCs CM called [facility] community services and [facility] and [facility] to see if they could help with patients heating issues. CM also called [facility] and [facility] to see if they could possibly provide support in getting heating for the patient. F2F sent to [facility] program as a secondary plan. Plan A; SNF Plan B home with HH and help with heating when medically stable. F2F done sent to [facility] Niurka Thompson RNcircuit manager
--- NOTE | 2022-06-26 14:35 | P.PN_ITS ---
Subjective Subjective Date Patient Seen: 06/26/22 Time Patient Seen: 08:00 Interval history: Her lower leg swelling is improving. She feels well. She is not confused. Exam Vital Signs (past 8 hours): - 06/26/22 08:00 Temperature 96.8 F L Pulse Rate 80 Respiratory Rate 21 Blood Pressure 148/67 H Pulse Oximetry 97 Oxygen Flow Rate 0 Oxygen Delivery Method Room Air Oxygen Flow Rate 0 Narrative Exam Narrative: General:? no acute distress Lungs:? clear bilaterally Cardio: systolic murmur, regular rate and rhythm Abdomen: soft nontender, nondistended, no organomegaly EXT: lower extremity edema 1+ Neuro:alert, oriented x2 Objective Labs Result Diagrams: 06/25/22 04:45 06/26/22 10:35 Labs: Laboratory Results - last 24 hr 06/26/22 10:35 Sodium 137 Potassium 3.8 Chloride 97 L Carbon Dioxide 36 H BUN 6 L Creatinine 0.73 Estimated GFR > 60 BUN/Creatinine Ratio 8.2 Glucose 119 H Calcium 8.4 Magnesium 1.7 PFSH Medical History (Updated 06/20/22 @ 18:18 by Marielos Arceo DO) Chronic sinusitis HTN (hypertension) Sinusitis Vertigo Surgical History (Updated 06/20/22 @ 18:17 by Jann Edwards DO) No pertinent past surgical history Social History household members: other Smoking Status: Former smoker Assessment & Plan Assessment & Plan narrative: 71 F admitted with hypothermia due to exposure, septic shock possibly due to bacterial pneumonia. 1. Acute CVA -noted small cerebellar infarct on MRI -suspect secondary to covid or hypothermia -ordered CTA head/neck which showed no acute process -ordered aspirin/statin -ordered PT/OT -checked lipids, a1c which were normal 2. Acute metabolic encephalopathy, resolved -ammonia normal -likely secondary to infection, hypothermia, and stroke, suspect patient at mental status baseline 3. Hypothermia with acute rhabdomyolysis and CRYSTAL, resolved - patient presented with temperature of 84 degrees. Now normothermic after bear hugger placed and resolved. - CK near 10,000 on admission labs,, now downtrended. - abel in place, follow urine output closely. Creatinine 1.77 on admit, now resolved - stable for regular floor. - UA consistent with rhabdo, 5-10 WBC as well reflexed for culture. 4. Septic and hypovolemic shock superimposed bacterial pneumonia or acute cystitis, resolved - continue zosyn empirically, cultures pending. CXR with multifocal pneumonia, mild leukocytosis, but UA with 5-10 WBC as well. - now off of levophed. 5. COVID 19 pneumonia - not currently hypoxic, presumed old infection as she reportedly tested positive on 06/05/22. 6. Afib with RVR, resolved - suspect in setting of hypothermia. 7. HTN - reportedly non compliant per PCP. Held in setting of septic shock, restart cautiously if downgraded to floor today. 8. Hypokalemia, improved -continue repletion PRN 9. Myocardial injury - elevated troponin at 0.065, likely in setting of demand. continue to follow, repeat EKG as noted above. Code: Full, she declines surrogate decision maker at this time after discussion. Per patient's PCP she has two sons whom are estranged. COVID-19 COVID-19 status: Positive Time Spent With Patient Critical Care time: I spent a total of [] minutes of critical care time on this patient's care tod ay; this time is exclusive of procedural time. Quality VTE Deep Vein Thrombosis/Pulmonary Embolism Present on Admission: No
--- NOTE | 2022-06-26 14:56 | DIET.CONS2 ---
Dietary Inpatient Consultation Note Admission Date: 06/20/2022 15:02 71y F screened by RD for LOS day 6. Pt with 25-50% POs since admission. RD spoke c pt for low appetite, pt having ongoing taste changes from her covid infection, nothing tastes good. Discussed strategies for flavor enhancement including lemon juice, salt, sugar added to foods. Recc pt try fresh fruit with yogurt or cottage cheese. Pt ordered dinner and breakfast c RD and will attempt to snack through day. Pt declines ONS. Diet: 06/22/22 Breakfast General (Regular) Diet Diet Modifications: Nutrition Percent Meal Consumed 25% 06/25/22 18:50 Percent Meal Consumed 50% 06/25/22 09:00 Percent Meal Consumed 50% 06/24/22 18:20 Electronically Signed by: Sara Maki 06/26/22 14:56 Clinical Dietitian [address] [address]
--- NOTE | 2022-06-26 15:22 | ST.IPSLE ---
Visit Care Team Role Provider Type Pippa Mera MD Primary Care Provider Physician Specialty: Family Practice Address: [facility] [place], [address] Email: [email or web address] Patrick Jiménez MD Other Providers Physician Specialty: Medical Address: Phone: Fax: Email: Elsie Mcghee MD Other Providers Physician Specialty: Medical Address: Phone: Fax: Email: Chas Larson MD Other Providers Physician Specialty: Medical Address: [facility] [place], [address] Phone: Fax: Email: Sheila Guevara MD Other Providers Physician Specialty: Internal Medicine Address: Phone: Fax: Email: Josr Tejada MD Other Providers Physician Specialty: Medical Address: Phone: Fax: Email: Savannah Tristan MD Other Providers Physician Specialty: Internal Medicine Address: [address] [place] [address], [address] Phone: Fax: Email: [email or web address] Pizarro MD Other Providers Physician Specialty: Internal Medicine Address: Phone: Fax: Email: Chandra Espinosa MD Other Providers Physician Specialty: Medical Address: Phone: Fax: Email: Sunil Carrlol MD Other Providers Physician Specialty: Internal Medicine Address: [address] [place], [address] Phone: Fax: Email: Mynor Thapa MD Other Providers Physician Specialty: Medical Address: [address] [place] [address], [address] Phone: Fax: Email: Lio Burk MD Other Providers Physician Specialty: Medical Address: Phone: Fax: Email: Tori Amor Other Providers Physician Specialty: Medical Address: Phone: Fax: Email: Marielos Arceo DO Emergency Provider Physician Referring Provider Specialty: Emergency Medicine Address: [address] [place] [address], [address] Email: [email or web address] Jann Edwards DO Admit Provider Physician Attending Provider Specialty: Internal Medicine Address: [address] [place] [address], [address] Email: [email or web address] Diagnoses Sepsis, unspecified organism (06/20/22) Past Medical History (Last Updated 06/20/22 @ 18:17 by Jann Edwards DO) Chronic sinusitis (Medical) HTN (hypertension) (Medical) Sinusitis (Medical) Vertigo (Medical) Speech-Language Pathology Speech/Language Eval GRAZING AIDE Adult Cognitive Linguistic Eval Start: 06/25/22 10:49 Freq: Status: Active Protocol: Document 06/26/22 15:06 CG (Rec: 06/26/22 15:21 CG [id number]) Adult Cognitive Linguistic Evaluation Session Time Visit Start Time 12:50 Visit Stop Time 01:15 Total Visit Minutes 25 Visit Information Visit Number 2 Setting Assessment Location Acute Care Visit Type Note Type Re-evaluation Next Note Type Next Note Type Re-Evaluation Patient Information Identification Type Name Patient History Per H&P: This is a 71 year old female, PMH of HTN recently fired by her primary care provider due to non- compliance with treatments, recent COVID 19 infection diagnosed likely around 06/01 who was found by her neighbor on the floor who picked her up on the floor and EMS found her on the toilet without heat on, she was found on the toilet, per EMS she was cyanotic, with a temperature of 83 degrees. She complained of constipation and abdominal discomfort initially. She is unable to give much history and is extremely lethargic, unable to answer questions meaningfully, but does answer simple questions and states she is in the hospital and is here because she blacked out. She denies any shortness of breath or chest pain, nausea or vomiting or abdominal pain currently. She has no joint pains or headaches. Imaging including head CT, C spine CT, CXR, and CT chest abd pelvis was only notable for bilateral patchy infiltrates in her lungs. COVID 19 testing was positive. MRI completed on 06/23/22 and progress note from 06/24/22 indicated pt had an acute stroke in cerebellum overnight . Started aspirin. Today she is markedly improved in terms of her mental status, with no further hallucinations, much improved orientation. Suspect she is at her baseline with some cognitive impairment, perhaps mild. Language(s) Spoken in the [facility] Hearing Level Normal Vision Vision Status Impaired Comments Reading glasses required, not present in hospital Subjective Patient Report Pt was seated upright in bedside chair upon ST arrival. Pt was observed to be teary- eyed and was apologizing, stating she had just gotten bad news regarding her cat ( cat is unable to be located). No overt signs or symptoms of aspiration observed pt took sips of soda. Pt communicated well with NSG and GRAZING AIDE, with no word finding difficulty and speech sounds WNL. Pt stated she is not having difficulty with swallowing at this time. She was alert and responsive, though orientation to time was impaired. Pt was very emotional throughout evaluation, stating that all she could think about was her cat. Mental Status Alert,Responsive,Cooperative Assessment Oral Motor Examination Completed Yes Results Structures were symmetrical at rest and in motion. Tongue, lip, and jaw strength and ROM were WNL. Some missing dentition, though pt reports she does not have difficulty chewing. Stucture and function of oral mechanism appear WNL for the purposes of speech and swallowing. Informal Assessment Expressive Language Normal Yes Pragmatic Language Normal Yes Speech Normal Yes Cognition Normal No Cognitive Impairment(s) Orientation,Attention,Short- term memory Formal Assessment Standardized Test/Screener Type [facility] Mental Status ([facility]) Administration Initiated,Incomplete, Discontinued Results Unable to complete the SLUMS due to pt difficulty attending following news that her cat was lost. Of the items completed, 11 total points were possible; pt scored 1/11. Pt exhibited difficulty with orientation to date and year, as well as significant difficulty with mathematical calculations. She identified errors across all tasks and predicted her own poor performance on many tasks, though she stated this was due to difficulty concentrating given her concern for her pet. Provided education regarding stroke, cognitive sequalae of stroke, and purpose of cognitive screening tool. Pt stated she was afraid she would not pass the test because she does not want to be sent to a usp. Pt lives alone and would likely experience difficulty with medication management and post-discharge care instructions based on performance on SLUMS assessment. Recommend placement in inpatient care rehab or at home with home health as pt recovers. Provided pt education regarding intermediate options for care including living at home with home health. Recommend re-evaluation of cognitive abilities as pt continues to recover and is able to shift attention from external factors. Recommend speech therapy to provide education and resources for cognitive deficits, especially as it relates to medical care and ADLs. Findings/Results Language Function Within normal limits Cognitive Function Moderately impaired Cognitive Communication Deficits Self-awareness of Cognitive- Situational awareness ( Communication Deficits recognition of problem in context;in real time) Prognosis Prognosis Guarded Based on Cognitive status,Duration of symptoms/severity,Time since onset,Other (comment) Comment Pt resistance to necessary level of DC support Plan of Care Speech-Language Treatment Yes Frequency 1x per day Duration duration of stay at Patient/Caregiver Education Described results of evaluation,Patient expressed understanding of evaluation, Patient expressed agreement with goals and treatment plans ,Patient requires further education/training Short Term Goals 1. Pt will participate in education regarding stroke and stroke recovery. 2. Pt will demonstrate independent use of external memory strategies to increase success in completion of ADLs. Discharge Recommendations Inpatient rehab facility,Home with Home Health
--- NOTE | 2022-06-26 15:28 | PC.NURSE ---
Patient is alert and oriented x3, with periods of confusion. She seems bitter and is upset about her stroke. Patient is easily reoriented. She is up in the chair at this time. She has some skin issues that can be seen under physical assessment. She occasionally complains of pain to her feet. Patients central line will be taken out now. Pressure dressing will be applied to area. Patient is eating some at meals. She is resting now.
--- NOTE | 2022-06-26 15:36 | CM.DPC ---
DCP Cont: Vern at [facility] has refused patient, secondary to uncertain discharge plan and non-compliance. Have not yet heard from other facilities, but most likely will need to go home with home health. DCP Niurka, [facility] with [facility] and [facility] regarding her electricity. Patient continues to change her mind about home versus skilled, her only concern is her heat. Patient will need a FWW for home use, according to P.T. P: PEDRO to follow up with other facilities, most likely will end up going home with [facility], [facility]. Shasha Truong RN/Evidence Specialist
[2022-06-26] MEDS: MAGNESIUM CHLORIDE 64 MG TABLET 128 MG PO (17:24)
[2022-06-26 20:00] VITALS: BP 148/67; PULSE 80; RESP 19; TEMP 36.8; O2SAT 96
[2022-06-26] MEDS: ATORVASTATIN 20 MG TABLET 40 MG PO (22:05)
[2022-06-26] MEDS: SODIUM CHLORIDE 0.9% FLUSH 10 ML IV (22:05)
[2022-06-27] VITALS: BP 140/63; PULSE 81; RESP 24; TEMP 37.4; O2SAT 96
[2022-06-27 04:00] VITALS: BP 141/65; PULSE 75; RESP 19; TEMP 36.9; O2SAT 94
[2022-06-27 05:53] LABS: BUN Creatinine Ratio 11.8 (6-22); Blood Urea Nitrogen 8 mg/dL (7-17); Calcium 8.3 mg/dL (8.4-10.2); Carbon Dioxide 35 mmol/L (22-32); Chloride 97 mmol/L (98-107); Estimated Glomerular Filt Rate > 60 mL/min (>60); Glucose 82 mg/dL (80-110); HEMOLYSIS < 15 (0-50); Magnesium 1.7 mg/dL (1.6-2.3); Potassium 3.4 mmol/L (3.4-5.1); Sodium 136 mmol/L (137-145)
[2022-06-27 08:00] VITALS: BP 156/71; PULSE 77; RESP 21; TEMP 36.8; O2SAT 95
--- NOTE | 2022-06-27 09:01 | CM.DPC ---
Addendum entered by Shasha Truong R.N. 06/27/22 13:15: [facility] referral was sent. Called [facility] and spoke to Christie. confirmed acceptance. They indicated that they can see patient on Sunday. Will add SALES AND EVENTS COORDINATOR consult as well, for resources. Called Dr. Mera's office, and they can see her up until 07/17, she will then need to establish with a new provider. Do not yet have DC orders as of yet. Addendum entered by Shasha Truong R.N. 06/27/22 11:44: Spoke to Balaji, he is a volunteer for [email or web address]. His home number is: [phone]. His cell number is: [phone]. Confirmed that patient can he can pick patient up at ER entrance at 1545, he drives a [employer]. Have updated nurse, Jonathan. Patient is working with P.T. Will need to follow up with [facility] to see if they can accept. Original Note: DCP Cont: Called [email or web address], left a message regarding resources, transportation, and concerns about heat in the home. Was given a number for [employer], their number is: [phone]. Was informed, they may be able to assist with the heating situation. Asked Yessy, occupational therapist assistant, to fax [facility] program to see if they can possibly accept patient. She would benefit with SALES AND EVENTS COORDINATOR in the home as well. Have not heard back from any facilities that referrals were sent to as of yet. P: DCP to work on plan. Plan most likely will be home. Did leave a message with Joseline, both [employer] [facility]. Have not heard back. Shasha Truong, RN/Air Quality Instrument Specialist
[2022-06-27] MEDS: GABAPENTIN 100 MG CAPSULE PO ×2 (09:45→21:12)
[2022-06-27] MEDS: ASPIRIN EC 81 MG TABLET PO (09:45)
[2022-06-27] MEDS: ENOXAPARIN 40 MG/0.4 ML SYRINGE SUBCUT (09:45)
[2022-06-27] MEDS: IBUPROFEN 600 MG TABLET PO ×3 (09:46→23:34)
--- NOTE | 2022-06-27 11:25 | PT.IPTN ---
Current Diagnoses Sepsis, unspecified organism (06/20/22) Physical Therapy Treatment Note M2 PT-IP Current Condition Start: 06/24/22 11:55 Freq: NEEDED Status: Active Protocol: Document 06/26/22 11:27 SP (Rec: 06/26/22 14:06 SP [id number]) Physical Therapy Current Condition Current Condition Evaluation Date 06/24/22 Treatment Diagnosis Covid; CVA; hypothermia with rhabdo; difficulty in walking Onset Date 06/20/22 M3 PT-IP Subjective Start: 06/24/22 11:55 Freq: NEEDED Status: Active Protocol: Document 06/27/22 11:25 AB (Rec: 06/27/22 14:01 AB [id number]) Subjective Physical Therapy Visit Type Type Treatment Note Visit Start Time 11:25 Visit Stop Time 11:50 Total Visit Minutes 25 Number of PRODUCT MANAGEMENT CONSULTANT Visits 0 Physical Therapy Visit Comments Patient Comments agreeable to do PT Therapy Pain Assessment Pain When Pain Assessed During Weight Bearing Pain Present Pain Present Pain Reported Location Bilateral Foot Scale Used pain scale not stated but better per pt Pain Management Techniques Distraction,Modification of Treatment,Re-positioning M4 PT-IP Mobility and Gait Start: 06/24/22 11:55 Freq: NEEDED Status: Active Protocol: Document 06/27/22 11:25 AB (Rec: 06/27/22 14:01 AB [id number]) PT-Transfer Assessment Sit to and From Stand Sit to and from Stand Contact Guard Assistance,1 Person Assistance,Use of Upper Extremities Equipment Transfer Assistive Device Gait Belt,Front Wheeled Walker Orthotic/Prosthetic Devices or Brace: No Comments Mobility Comments pt sitting on chair and expresses concern regarding d/ c. informed pt to focus on PT for now and agreed. completed sit to stand CGA. ambulated in room CGA to min A using FWW ~ 40 ft. pt tends walk too close to the wall and runs over objects during ambulation requiring min A for FWW positioning and cues for safety. pt sat back on chair. positioned on chair. call light and table placed within reach. Gait Assessment Gait Gait Assistance Required: Contact Guard Assist,Minimum Assistance,1 Person Assist Distance (Feet) 40 Able to Maintain Weight Bearing Status Yes During Gait Assistive Devices Assistive Device Gait Belt,Front Wheeled Walker Orthotic/Prosthetic Devices or Brace: No Gait Deviations General Gait Pattern Decreased Stride Length, Decreased Feet Clearance,Step- to Gait Factors Limiting Gait Function Factors Limiting Gait Function Decreased Activity Tolerance, Decreased Sensation,Decreased Strength,Difficulty Following Directions,Limited Range of Motion,Pain,Poor Balance,Poor Safety Awareness M5 PT-IP Objective Assessments Start: 06/24/22 11:55 Freq: NEEDED Status: Active Protocol: Document 06/24/22 09:55 AB (Rec: 06/24/22 12:07 AB [id number]) Orientation Orientation/Cognition Level of Alertness Alert Orientation Name Safety Awareness Decreased Safety Awareness Memory Description Short Term Impaired Comments with confusion Gross Range of Motion Lower Extremity ROM Assessment Within Functional Limits Strength Lower Extremity Strength Hip 4-/5 Knee 3+/5 Sensation Assessment Sensation Gross Sensation Right LE Impaired,Left LE Impaired Sensation Description Numbness,[place] Muscle Tone Muscle Tone WNL Yes M6 PT-IP Treatment Start: 06/24/22 11:55 Freq: NEEDED Status: Active Protocol: Document 06/27/22 11:25 AB (Rec: 06/27/22 14:01 AB [id number]) Physical Therapy Treatment Education Education Provided Safety M7 PT-IP Assessment and Plan Start: 06/24/22 11:55 Freq: NEEDED Status: Active Protocol: Document 06/27/22 11:25 AB (Rec: 06/27/22 14:01 AB [id number]) PT Summary Assessment and Plan Potential Rehabilitation Potential Fair Summary Impairments Pain,ROM,Strength,Balance, Coordination,Sensation,Tone, Cognition,Bed Mobility, Transfers,Gait,Activity Tolerance Progress Towards Goals Slow Progress due to Activity Tolerance Assessment Summary Pt is off Covid precautions per nurse. pt improving slowly and requires CGA to min A with ambulation using FWW and cues for safety. pt needs to be more independent to safety go home and will require SNF rehab to improve strength and mobility. Goals Bed Mobility Goal Independent Transfer Goal Independent,Front Wheeled Walker Gait Goal Independent,Front Wheel Walker Gait Distance 50 Other Goals improve transfers and ambulation using FWW 100 ft SBA up/down 3 steps B rails SBA Days to Meet Goals 10 Frequency of Treatment Frequency Of Treatment Once a Day Treatment Plan Physical Therapy Treatment Plan Bed Mobility Training,Transfer Training,Gait Training, Therapeutic Exercise,Balance Retraining,Discharge Planning, Hot or Cold Pack,Neuromuscular Re-ed,Coordination Retraining Recommendations To Nursing Amount of Assist Needed 1 Person Assist Discharge Recommendations PT Discharge Recommendations SNF Rehab Equipment Needed for Home Before FWW Discharge Transportation Needs at Discharge Private Vehicle,Wheelchair/ Cabulance
[2022-06-27] MEDS: SODIUM CHLORIDE 0.9% FLUSH 10 ML IV ×2 (11:58→21:13)
[2022-06-27] MEDS: POTASSIUM CHLORIDE 20 MEQ TAB 40 MEQ PO (11:58)
[2022-06-27] MEDS: MAGNESIUM CHLORIDE 64 MG TABLET 128 MG PO (11:59)
--- NOTE | 2022-06-27 12:33 | ST.IPSLE ---
Visit Care Team Role Provider Type Pippa Mera MD Primary Care Provider Physician Specialty: Family Practice Address: [facility] [place], [address] Email: [email or web address] Patrick Jiménez MD Other Providers Physician Specialty: Medical Address: Phone: Fax: Email: Elsie Mcghee MD Other Providers Physician Specialty: Medical Address: Phone: Fax: Email: Chas Larson MD Other Providers Physician Specialty: Medical Address: [facility] [place], [address] Phone: Fax: Email: Sheila Guevara MD Other Providers Physician Specialty: Internal Medicine Address: Phone: Fax: Email: Josr Tejada MD Other Providers Physician Specialty: Medical Address: Phone: Fax: Email: Savannah Tristan MD Other Providers Physician Specialty: Internal Medicine Address: [address] [place] [address], [address] Phone: Fax: Email: [email or web address] Vazquez Pizarro MD Other Providers Physician Specialty: Internal Medicine Address: Phone: Fax: Email: Chandra Espinosa MD Other Providers Physician Specialty: Medical Address: Phone: Fax: Email: Sunil Carroll MD Other Providers Physician Specialty: Internal Medicine Address: [address] [place], [address] Phone: Fax: Email: Mynor Thapa MD Other Providers Physician Specialty: Medical Address: [address] [place] [address], [address] Phone: Fax: Email: Lio Burk MD Other Providers Physician Specialty: Medical Address: Phone: Fax: Email: Tori Amor Other Providers Physician Specialty: Medical Address: Phone: Fax: Email: Marielos Arceo DO Emergency Provider Physician Referring Provider Specialty: Emergency Medicine Address: [address] [place] [address], [address] Email: [email or web address] Jann Edwards DO Admit Provider Physician Attending Provider Specialty: Internal Medicine Address: [address] [place] [address], [address] Email: [email or web address] Current Diagnoses Sepsis, unspecified organism (06/20/22) Past Medical History (Last Updated 06/20/22 @ 18:17 by Jann Edwards DO) Chronic sinusitis (Medical) HTN (hypertension) (Medical) Sinusitis (Medical) Vertigo (Medical) Speech-Language Pathology Speech/Language Eval 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 II ENGRAVER Adult Cognitive Linguistic Eval Start: 06/25/22 10:49 Freq: Status: Active Protocol: Document 06/27/22 12:14 LNK (Rec: 06/27/22 12:32 LNK [id number]) Adult Cognitive Linguistic Evaluation Session Time Visit Start Time 09:45 Visit Stop Time 10:30 Total Visit Minutes 45 Visit Information Visit Number 3 Setting Assessment Location Acute Care Visit Type Note Type Re-evaluation Next Note Type Next Note Type Treatment Note Patient Information Patient History Per H&P: This is a 71 year old female, PMH of HTN recently fired by her primary care provider due to non- compliance with treatments, recent COVID 19 infection diagnosed likely around 06/01 who was found by her neighbor on the floor who picked her up on the floor and EMS found her on the toilet without heat on, she was found on the toilet, per EMS she was cyanotic, with a temperature of 83 degrees. She complained of constipation and abdominal discomfort initially. She is unable to give much history and is extremely lethargic, unable to answer questions meaningfully, but does answer simple questions and states she is in the hospital and is here because she blacked out. She denies any shortness of breath or chest pain, nausea or vomiting or abdominal pain currently. She has no joint pains or headaches. Imaging including head CT, C spine CT, CXR, and CT chest abd pelvis was only notable for bilateral patchy infiltrates in her lungs. COVID 19 testing was positive. MRI completed on 06/23/22 and progress note from 06/24/22 indicated pt had an acute stroke in cerebellum overnight . Started aspirin. Today she is markedly improved in terms of her mental status, with no further hallucinations, much improved orientation. Suspect she is at her baseline with some cognitive impairment, perhaps mild. Language(s) Spoken in the Home [place] Hearing Hearing Level Normal Vision Vision Status Impaired Comments Reading glasses required, present in hospital Subjective Patient Report Pt was seated upright in bedside chair upon ST arrival. Pt just got out of the shower and was discussing her options for discharge. Pt was frustrated with options and her current status. She also appeared depressed because she can't drive, has no one to take care of her, she doesn't want to be a burden. She was alert and responsive, though orientation to time and day was impaired. Pt frequently stated that she was failing, stupid during the [facility] assessment. Mental Status Alert,Responsive,Cooperative Assessment Oral Motor Examination Completed No Results Informal observation indicated no chaange in OM form or function since last assessment Informal Assessment Expressive Language Normal Yes Pragmatic Language Normal Yes Speech Normal Yes Cognition Normal No Cognitive Impairment(s) Orientation,Attention,Short- term memory,Problem solving, Reasoning Formal Assessment Results Completed the [facility] Pt scored 10/20 indicating score within the dementia range. Pt was unable to state the day, calculate mental math, draw a clock with markers and specified time. She did identify a square as largest of 3 shapes, but marked the square when asked to rachelle the triangle. Finally she correctly answered 2 of 4 questions of a short story read aloud to her. Findings/Results Language Function Within functional limits Cognitive Function Moderately impaired Cognitive Communication Deficits Self-awareness of Cognitive- Situational awareness ( Communication Deficits recognition of problem in context;in real time) Prognosis Prognosis Guarded Based on Cognitive status,Duration of symptoms/severity,Time since onset,Other (comment) Plan of Care Speech-Language Treatment Yes Frequency 1x per day Duration duration of stay at Patient/Caregiver Education Described results of evaluation,Patient expressed understanding of evaluation, Patient requires further education/training Short Term Goals 1. Pt will participate in education regarding cognitive changes related to CVA and stroke recovery. 2. Pt will be educated in, and will implement, external memory strategies to increase success in completion of ADLs. Discharge Recommendations penitentiary facility,Home with Home Health
--- NOTE | 2022-06-27 14:28 | PM.PN.1 ---
Subjective Subjective Date Patient Seen: 06/27/22 Time Patient Seen: 12:00 Interval history: She is mostly concerned about her legs Exam Vital Signs (past 8 hours): - 06/27/22 08:00 Temperature 98.2 F Pulse Rate 77 Respiratory Rate 21 Blood Pressure 156/71 H Pulse Oximetry 95 Oxygen Flow Rate 0 Oxygen Delivery Method Room Air Oxygen Flow Rate 0 Objective Labs Result Diagrams: 06/25/22 04:45 06/27/22 04:18 Labs: Laboratory Results - last 24 hr 06/27/22 04:18 Sodium 136 L Potassium 3.4 Chloride 97 L Carbon Dioxide 35 H BUN 8 Creatinine 0.68 Estimated GFR > 60 BUN/Creatinine Ratio 11.8 Glucose 82 Calcium 8.3 L Magnesium 1.7 PFSH Medical History (Updated 06/20/22 @ 18:18 by Marielos Arceo DO) Chronic sinusitis HTN (hypertension) Sinusitis Vertigo Surgical History (Updated 06/20/22 @ 18:17 by Jann Edwards DO) No pertinent past surgical history Social History household members: other Smoking Status: Former smoker Assessment & Plan Time Spent With Patient Critical Care time: I spent a total of [] minutes of critical care time on this patient's care today; this time is exclusive of procedural time. Quality VTE Deep Vein Thrombosis/Pulmonary Embolism Present on Admission: No
--- NOTE | 2022-06-27 14:30 | CM.DPC ---
DCP Cont: Spoke to patient's brother, for he had called angry, frustrated. This DC Cigar Tobacco Processing Supervisor spoke to him, his was in the background, yelling. Asked brother to not yell at this DC Cigar Tobacco Processing Supervisor, or spouse. He stated, have you seen what she lives in? Asked him if he has called APS, stated, no, your'e supposed to do that, and why don't you come out and see the place she lives in? Let him know that this DC Cigar Tobacco Processing Supervisor has not seen where she lives, and does not travel to people's homes, but encouraged him since he is a mandated in mold coater, to call APS. Gave him the number. Brother continues to be frustrated. Let him know that patient has the right to make her own decisions, may be unsafe, but can make decisions. Let him know that DC Planners do not normally update all family members that are involved, since patient's cognition has improved. Dr. Garcia is not wishing to discharge patient, he does not feel that this is a safe discharge, due to her cognition. Let him know that all skilled facilities have been exhausted. Also, updated him that this will be an avoidable day. P: DCP to continue to work on home plan with [facility]. Will call [facility] and will update them that patient is not going home today. Shasha Truong RN/Glue Jointer Operator
--- NOTE | 2022-06-27 15:06 | CM.DPC ---
Addendum entered by Shasha Truong R.N. 06/27/22 16:08: Sunshine at [facility] may be able to accept. Gave her patient's height and weight, and faxed over updated P.T, speech and dietary notes. Included latest progress notes, as well as H&P. She indicated if she has all that she needs, and she gets the auth from [facility], may be able to accept patient tomorrow. Have faxed her updated documents, she will submit this pm. Addendum entered by Shasha Truong R.N. 06/27/22 15:29: Spoke to Sunshine at [facility], she will review patient for potential admission. She will update this DC Box Storage Worker Original Note: DCP Cont: P.T. notes, including speech, emphasize that patient may benefit with shelter facilities, can focus on cognition, mobility, since patient has had an acute CVA. Can go ahead and explore facilities, in [facility], since patient does have AARP Medicare. Accepting facility would need to get an insurance auth. Patient is working with the therapy team, and is willing to go to a skilled facility as long as it is covered by her insurance. At this time, [facility] has not given an answer, have not been able to get in touch with [facility] and [facility] have declined, no beds for [facility]. Will ask assistant Yessy, to explore some facilities outside the area, in the [facility]. P: DCP will work on placement for shelter secondary to her working here with rehab, and her acute CVA. Shasha Truong, KEEGAN/Concrete Batching Plant Operator
--- NOTE | 2022-06-27 15:58 | P.PN_ITS ---
Subjective Subjective Date Patient Seen: 06/27/22 Time Patient Seen: 08:00 Interval history: Request for reevaluation of SLUMS as she appeared to me less encephalopathic. SLUMS of 10. Spoke with Dr. Mera today, and her forgetfulness, suspicion are chronic. I suspect her current mental status is baseline. When I asked her how she would heat her home if she were to go home she stated she would buy a mobile home but otherwise could not reasonably create a plan for herself. She is worried about placement due to cost, but clearly would be willing to live with family or go to rehab or some other possibility if available as she is scared to go home. Exam Vital Signs (past 8 hours): - 06/27/22 08:00 Temperature 98.2 F Pulse Rate 77 Respiratory Rate 21 Blood Pressure 156/71 H Pulse Oximetry 95 Oxygen Flow Rate 0 Oxygen Delivery Method Room Air Oxygen Flow Rate 0 Narrative Exam Narrative: General:? no acute distress Lungs:? clear bilaterally Cardio: systolic murmur, regular rate and rhythm Abdomen: soft nontender, nondistended, no organomegaly EXT: lower feet swelling and tenderness Neuro:alert, oriented x2 Objective Labs Result Diagrams: 06/25/22 04:45 06/27/22 04:18 Labs: Laboratory Results - last 24 hr 06/27/22 04:18 Sodium 136 L Potassium 3.4 Chloride 97 L Carbon Dioxide 35 H BUN 8 Creatinine 0.68 Estimated GFR > 60 BUN/Creatinine Ratio 11.8 Glucose 82 Calcium 8.3 L Magnesium 1.7 PFSH Medical History (Updated 06/20/22 @ 18:18 by Marielos Arceo DO) Chronic sinusitis HTN (hypertension) Sinusitis Vertigo Surgical History (Updated 06/20/22 @ 18:17 by Jann Edwards DO) No pertinent past surgical history Social History household members: other Smoking Status: Former smoker Assessment & Plan Assessment & Plan narrative: 71 F admitted with hypothermia due to exposure, septic shock possibly due to bacterial pneumonia. 1. Acute CVA -noted small cerebellar infarct on MRI -suspect secondary to covid or hypothermia -ordered CTA head/neck which showed no acute process -ordered aspirin/statin -ordered PT/OT -checked lipids, a1c which were normal 2. Acute metabolic encephalopathy, resolved -ammonia normal -likely secondary to infection, hypothermia, and stroke, suspect patient at mental status baseline 3. Hypothermia with acute rhabdomyolysis and CRYSTAL, resolved - patient presented with temperature of 84 degrees. Now normothermic after bear hugger placed and resolved. - CK near 10,000 on admission labs,, now downtrended. - abel in place, follow urine output closely. Creatinine 1.77 on admit, now resolved - stable for regular floor. - UA consistent with rhabdo, 5-10 WBC as well reflexed for culture. 4. Septic and hypovolemic shock superimposed bacterial pneumonia or acute cystitis, resolved - continue zosyn empirically, cultures pending. CXR with multifocal pneumonia, mild leukocytosis, but UA with 5-10 WBC as well. - now off of levophed. 5. COVID 19 pneumonia - not currently hypoxic, presumed old infection as she reportedly tested positive on 06/05/22. 6. Afib with RVR, resolved - suspect in setting of hypothermia. 7. HTN - reportedly non compliant per PCP. Held in setting of septic shock, restart cautiously if downgraded to floor today. 8. Hypokalemia, improved -continue repletion PRN 9. Myocardial injury, resolved - elevated troponin at 0.065, likely in setting of demand. 10. Toe/foot swelling -suspect pain is secondary to injury from cold exposure, -also component of volume overload as leg swelling is better and had elevated B EXPERIENCE DESIGN DIRECTOR on 06/25 -continue gentle lasix dose -pain control for her toes with nsaids, opiates, gabapentin 11. Probable dementia -SLUMS of 10 Dispo: I am concerned about patient's full capacity for understanding the consequences of her going and her ability to rationalize a way to keep herself safe. She is quite forgetful, and her thought process is tangential and fractured. I feel she is currently unsafe to discharge home alone due to dementia and inability to understand the consequences of this decision and will need care from family or at a facility. COVID-19 COVID-19 status: Positive Time Spent With Patient Critical Care time: I spent a total of [] minutes of critical care time on this patient's care today; this time is exclusive of procedural time. Quality VTE Deep Vein Thrombosis/Pulmonary Embolism Present on Admission: No
[2022-06-27 16:00] VITALS: BP 146/73; PULSE 82; RESP 20; TEMP 36.7; O2SAT 98
[2022-06-27 20:00] VITALS: BP 154/77; PULSE 95; RESP 22; TEMP 36.6; O2SAT 98
[2022-06-27] MEDS: ATORVASTATIN 20 MG TABLET 40 MG PO (21:12)
[2022-06-27] MEDS: OXYCODONE/ACETAMINOPHEN 5/325 TABLET 1 TAB PO (23:33)
[2022-06-28] VITALS: BP 127/60; PULSE 85; RESP 19; TEMP 37.3; O2SAT 96
[2022-06-28 04:00] VITALS: BP 129/60; PULSE 72; RESP 21; TEMP 36.3; O2SAT 97
--- NOTE | 2022-06-28 06:06 | PC.NURSE ---
Medicated for pain as needed. Able to bear wt. on feet, and stable when walking.
[2022-06-28 08:00] VITALS: BP 143/70; PULSE 80; RESP 16; TEMP 36.3; O2SAT 97
[2022-06-28] MEDS: ACETAMINOPHEN 325 MG TABLET 650 MG PO (08:02)
[2022-06-28] MEDS: ENOXAPARIN 40 MG/0.4 ML SYRINGE SUBCUT (08:04)
[2022-06-28] MEDS: GABAPENTIN 100 MG CAPSULE PO (08:04)
[2022-06-28] MEDS: ASPIRIN EC 81 MG TABLET PO (08:04)
[2022-06-28] MEDS: FUROSEMIDE 20 MG TABLET PO (08:04)
[2022-06-28] MEDS: SODIUM CHLORIDE 0.9% FLUSH 10 ML IV (08:05)
--- NOTE | 2022-06-28 09:12 | CM.DPC ---
Addendum entered by Shasha Truong R.N. 06/28/22 11:24: Did call Christie at [facility] and updated her that patient is going to [facility] today. Awaiting orders, confirmed roller picker time for 1230 Original Note: DCP Cont: Confirmed with Sunshine at [facility], that they can accept patient. She indicated a rough estimate roller picker time between 11:00-1300. She will have a more precise time and will call back. Sat with patient and updated her. She still is concerned about being farther from home, but knows that this is temporary. She does not want to be a burden on her family, so she is willing to go. Let patient know that she will be updated as soon as a time is known of roller picker. Will update Dr. Caceres. P: Plan will be for patient to go to [facility] today, as soon as time is known, will update patient, and will update hospitalist during team rounds. Shasha Truong RN/Final Operations Technician
--- NOTE | 2022-06-28 11:16 | PM.DS.1 ---
History of Present Illness History of Present Illness Chief complaint: hypothermia Narrative: 71 year old female, PMH of HTN recently fired by her primary care provider due to non-compliance with treatments, recent COVID 19 infection diagnosed likely around 06/01 who was found by her neighbor on the floor who picked her up on the floor and EMS found her on the toilet without heat on, she was found on the toilet, per EMS she was cyanotic, with a temperature of 83 degrees. She complained of constipation and abdominal discomfort initially. She is unable to give much history and is extremely lethargic, unable to answer questions meaningfully, but does answer simple questions and states she is in the hospital and is here because she blacked out. She denies any shortness of breath or chest pain, nausea or vomiting or abdominal pain currently. She has no joint pains or headaches. Imaging including head CT, C spine CT, CXR, and CT chest abd pelvis was only notable for bilateral patchy infiltrates in her lungs. COVID 19 testing was positive. She was initially hypothermic, hypotensive, tachycardic with afib with RVR on EKG. Initial temp was 84 degrees. She was bolused with LR, started on maintenance IV fluids with NS, and still required levophed small amounts at 4 to keep pressures up. She was re-warmed with a bear hugger and is now normothermic. Labs notable for CRYSTAL with creatinine 1.77, WBC 12.8, K 3.2, Glucose 268, AST 245, ALT 100, CK 9473, and troponin of 0.065. Unable to collect additional history from patient regarding past medical, surgical, or family history given her encephalopathy. Discharge Providers Provider Date of admission: 06/20/22 15:02 Discharge Date: 06/28/22 Primary care physician: Pippa Mera MD Consults: 06/20/22 15:43 Consult to [facility] - Solutions Manager Routine Comment: 06/20/22 18:17 Consult to Tele-commercial loan assistant Routine Comment: Consulting Provider: Deborah Tele-intensivists Reason for consultation: Physician Underwriter services 06/24/22 07:52 Consult to Occupational Therapy Evaluate & Treat Comment: Physician Instructions: Evaluate and treat Consult to Physical Therapy Evaluate & Treat Comment: Physician Instructions: Evaluate and Treat Consult to Speech Therapy Evaluate & Treat Comment: Physician Instructions: Evaluate and treat 06/27/22 11:50 Consult to Home Health Routine Comment: Reason For Exam: FWW for home use 06/27/22 13:18 Consult to Home Health Routine Comment: Reason For Exam: Home Health RN, P.T, O.T, 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 Acute hypothermia 2. Acute rhabdomyolysis with acute renal injury 3. Septic shock 4. Hypovolemic shock 5. Bacterial pneumonia 6. Acute metabolic encephalopathy 7. Recent COVID-19 with pneumonia 8. Acute atrial fibrillation with RVR, resolved 9. Chronic hypertension 10. Acute myocardial injury, demand ischemia Echo 06/24/2022:Normal sinus rhythm. Normal LV size and wall thickness; normal wall motion and LV systolic function. EF is 50-55%. Stage I diastolic dysfunction. ? Normal chamber sizes. No significant valvular abnormalities. No source of embolism found. Specifically no PFO based on bubble study. ? Compared to prior study 12/20/2020 no significant changes have occurred. Brain MR 06/23/2022:1. Age-related volume loss and moderate small vessel ischemic change. ? 2. Tiny acute left cerebellar lacunar infarction. ? 3. Chronic sinus disease.? Head CTA 06/24/2022:?No significant intracranial arterial abnormality is seen. ? No CT correlate for the previously seen left cerebellar infarction. Chest abdomen pelvis CT 06/20/2022:Multiple scattered bilateral pulmonary infiltrates are seen, which involve all 5 lobes of the lung.? These have the appearance an atypical infection.? Please consider COVID pneumonia.? A follow-up noncontrast chest CT is 4-8 weeks to monitor for resolution into evaluate for any potential underlying pulmonary nodule.? ? No acute posttraumatic abnormality is identified. ? Normal right mediastinum.? The prior chest radiograph appearance is attributed to normal findings from vascular structures. Hospital Course: 71-year-old female admitted with acute hypothermia to exposure with lack of indoor heat at residence, septic and hypovolemic shock requiring pressor support, likely bacterial pneumonia in setting of recent COVID-19 pneumonia, acute rhabdomyolysis with acute kidney injury and acute atrial fibrillation with RVR. Patient was initially managed in the ICU with volume resuscitation, vasopressor support and broad-spectrum antibiotics. She also had significant encephalopathy on admission related to acute illness. Brain MRI did reveal a small acute left cerebellar lacunar infarction. Patient was seen by social service technician, PT and OT during hospital stay. Cognitive evaluation showed significant impairment with slums score of 10 on repeat testing 06/27/2022. This raises concern of undiagnosed underlying dementia. Conversationally today patient does not seem as impaired as mental status testing suggests. Recommend repeat cognitive testing during custodial stay. Additionally home situation needs to be addressed as she has been living in [facility] without indoor. Recommend getting family involved, patient has son in [place] him and another son in [place]. Status at Discharge Cognitive/behavioral status at discharge: at baseline, oriented Functional status at discharge: uses cane/walker Overall status at discharge: patient is progressing back to baseline Time Spent with Patient Time spent: Greater than 30 minutes Exam Vital Signs (past 8 hours): - 06/28/22 04:00 06/28/22 08:00 06/28/22 08:00 Temperature 97.3 F L 97.4 F L Pulse Rate 72 80 Respiratory Rate 21 16 Blood Pressure 129/60 143/70 H Pulse Oximetry 97 97 Oxygen Delivery Method Room Air Oxygen Flow Rate 0 Oxygen Delivery Method Room Air Oxygen Flow Rate 0 Narrative Exam Narrative: General: Alert pleasant and cooperative female sitting in chair and in no acute distress Lungs: Clear to auscultation Heart: Regular rhythm Abdomen: Nontender Extremities: Nonedematous. Neurological: Affect pleasant/normal, speech fluent without aphasia, no unilateral weakness of extremities Objective Labs Result Diagrams: 06/25/22 04:45 06/27/22 04:18 [facility] Medical History (Updated 06/20/22 @ 18:18 by Marielos Arceo DO) Chronic sinusitis HTN (hypertension) Sinusitis Vertigo Surgical History (Updated 06/20/22 @ 18:17 by Jann Edwards DO) No pertinent past surgical history Social History household members: other Smoking Status: Former smoker Discharge Plan Discharge Plan Patient Disposition: SNF Transfer to: [facility], Eugenio Reza Consult as needed: Dental, Hearing, Mental health, Podiatry and Vision Provider Discharge Comment: 71 F with pneumonia, septic/hypovolemic shock, acute encephalopathy, hypothermia, rhabdo all acute conditions now resolved. Concern for dementia (SLUMS 10). Recommend repeating cognitive evaluation at SNF. Received influenza vac on 06/28/22. Discharge orders & Medications Prescriptions: New acetaminophen 325 mg Tablet 650 mg PO Q6H PRN (Reason: Fever/Mild Pain (1-3)) Qty: 1 0RF aspirin 81 mg Tablet,Delayed Release (Dr/Ec) 81 mg PO DAILY 30 Days Qty: 30 0RF atorvastatin [Lipitor] 20 mg Tablet 40 mg PO BEDTIME Qty: 30 0RF cyanocobalamin (vitamin B-12) 1,000 mcg capsule 1,000 mcg PO DAILY Qty: 30 0RF folic acid 1 mg tablet 1 mg PO DAILY Qty: 30 0RF sertraline 50 mg tablet 50 mg PO DAILY Qty: 30 0RF ergocalciferol (vitamin D2) [Vitamin D2] 1,250 mcg (50,000 unit) capsule 1,250 mcg PO QWEEK Qty: 4 0RF oxycodone-acetaminophen 5-325 mg Tablet 1 tab PO Q6HR PRN (Reason: Pain, Moderate (4-6)) Qty: 15 0RF Continued losartan 100 mg tablet 100 mg PO DAILY Label Comments: TAKE 1 TABLET BY MOUTH ONCE DAILY hydrochlorothiazide 12.5 mg tablet 12.5 mg PO DAILY Discontinued ondansetron 8 mg tablet,disintegrating 8 mg PO Q8H PRN (Reason: nausea and vomiting) Qty: 14 0RF meclizine 25 mg tablet 25 mg PO TID Qty: 20 0RF cyclobenzaprine 10 mg tablet 5 - 10 mg PO BID PRN (Reason: muscle spasm) Qty: 10 0RF lidocaine 5 % adhesive patch,medicated 1 patch TOP DAILY PRN (Reason: pain) Qty: 30 0RF Rx Instructions: leave on most painful area for up to 12 hrs meclizine 25 mg tablet 25 mg PO BID-TID PRN (Reason: dizziness) Qty: 14 0RF Follow up/Referrals: Pippa Mera MD [Primary Care Provider] - Diet/Activity/Treatments Diet: Regular Liquid consistency: Normal/Thin [facility] Rehab type: Physical therapy and Occupational therapy Visit Report/Discharge Packet Stand Alone Forms: Naloxone Standing Order [facility] Discharge Data Primary Care Provider: Pippa Mera Quality VTE Deep Vein Thrombosis/Pulmonary Embolism Present on Admission: No
--- NOTE | 2022-06-28 11:27 | ST.IPTN ---
Visit Care Team Role Provider Type Pippa Mera MD Primary Care Provider Physician Address: [facility], [place], [address] Patrick Jiménez MD Other Providers Physician Address: Phone: Fax: Elsie Mcghee MD Other Providers Physician Address: Phone: Fax: Chas Larson MD Other Providers Physician Address: [facility] [place], [address] Phone: Fax: Sheila Guevara MD Other Providers Physician Address: Phone: Fax: Josr Tejada MD Other Providers Physician Address: Phone: Fax: Savannah Tristan MD Other Providers Physician Address: [address] [place] [address], [address] Phone: Fax: Vazquez Pizarro MD Other Providers Physician Address: Phone: Fax: Chandra Espinosa MD Other Providers Physician Address: Phone: Fax: Sunil Carroll MD Other Providers Physician Address: [address] [place] [address], [address] Phone: Fax: Mynor Thapa MD Other Providers Physician Address: [address] [place] [address], [address] Phone: Fax: Lio Burk MD Other Providers Physician Address: Phone: Fax: Tori Amor Other Providers Physician Address: Phone: Fax: Marielos Arceo DO Emergency Provider Physician Referring Provider Address: [address] [place] [address], [address] Jann Edwards DO Admit Provider Physician Attending Provider Address: [address] [place] [address], [address] ENGINE ASSEMBLER Treatment Note ENGINE ASSEMBLER Treatment Note Start: 06/28/22 11:17 Freq: Status: Active Protocol: Document 06/28/22 11:18 ZS (Rec: 06/28/22 11:26 ZS [id number]) Speech Pathology Treatment Note Session Time Visit Start Time 09:50 Visit Stop Time 10:20 Total Visit Minutes 30 Setting Treatment Setting Acute Care Visit Type Note Type Treatment Note Next Note Type Next Note Type Treatment Note General Information Patient History Per H&P: This is a 71 year old female, PMH of HTN recently fired by her primary care provider due to non- compliance with treatments, recent COVID 19 infection diagnosed likely around 06/01 who was found by her neighbor on the floor who picked her up on the floor and EMS found her on the toilet without heat on, she was found on the toilet, per EMS she was cyanotic, with a temperature of 83 degrees. She complained of constipation and abdominal discomfort initially. She is unable to give much history and is extremely lethargic, unable to answer questions meaningfully, but does answer simple questions and states she is in the hospital and is here because she blacked out. She denies any shortness of breath or chest pain, nausea or vomiting or abdominal pain currently. She has no joint pains or headaches. Imaging including head CT, C spine CT, CXR, and CT chest abd pelvis was only notable for bilateral patchy infiltrates in her lungs. COVID 19 testing was positive. MRI completed on 06/23/22 and progress note from 06/24/22 indicated pt had an acute stroke in cerebellum overnight . Started aspirin. Today she is markedly improved in terms of her mental status, with no further hallucinations, much improved orientation. Suspect she is at her baseline with some cognitive impairment, perhaps mild. Subjective Identification Type Name Identification Reconciled With Medical Record,ID Bracelet Observations/Patient Presentation Pt was seated upright in chair when ENGINE ASSEMBLER arrived. She requested warm blankets and a hot coffee from [facility]. Chief Complaint(s) Cognitive Objective Short Term Goals 1. Pt will participate in education regarding cognitive changes related to CVA and stroke recovery. 2. Pt will be educated in, and will implement, external memory strategies to increase success in completion of ADLs. Treatment Activities Discussed use of notepad/ journal to increase recall of information and checklists to track things to do. Assessment Patient Response to Treatment Fair Rehab Potential Fair Impairments Identified Cognitive communication Assessment of Improvement Pt showed ENGINE ASSEMBLER clipboard with printer paper provided by [facility]. Some notes observed at the top of the page and pt stated she wrote other lists of things, but was not sure where they went. Pt ruminated about care for her cat, a sapphire ring, heat in her trailer, money, living arrangements, and a road trip she had been planning. Pt observed to repeat concerns several times in addition to listing things she would like to get done or get more information on. Pt expressed understanding of list and external strategies, though did not appear to retain this information long enough to write anything down. Session ended when pt took a phone call regarding placement post-discharge. Reviewed with Patient Goals,Progress Being Made,Home Exercise Program Plan Provided Patient/Caregiver Instruction Home Exercise Program,Plan of Care,Questions/Concerns Therapy Recommendations Continue with Current Program
[2022-06-28] MEDS: INFLUENZA VACCINE QIV 0.5 ML SYRINGE IM (11:48)
--- NOTE | 2022-06-28 15:45 | PT.IPTN ---
Current Diagnoses Sepsis, unspecified organism (06/20/22) Physical Therapy Treatment Note M2 PT-IP Current Condition Start: 06/24/22 11:55 Freq: NEEDED Status: Discharge Protocol: Document 06/26/22 11:27 SP (Rec: 06/26/22 14:06 SP [id number]) Physical Therapy Current Condition Current Condition Evaluation Date 06/24/22 Treatment Diagnosis Covid; CVA; hypothermia with rhabdo; difficulty in walking Onset Date 06/20/22 M3 PT-IP Subjective Start: 06/24/22 11:55 Freq: NEEDED Status: Active Protocol: Document 06/28/22 15:28 LJ (Rec: 06/28/22 15:45 LJ [id number]) Subjective Physical Therapy Visit Type Type Treatment Note Visit Start Time 09:18 Visit Stop Time 09:32 Total Visit Minutes 14 Number of PROCESS DEVELOPMENT TECHNICIAN Visits 1 Physical Therapy Visit Comments Patient Comments agreeable to do PT. Needs to use the toilet M4 PT-IP Mobility and Gait Start: 06/24/22 11:55 Freq: NEEDED Status: Active Protocol: Document 06/28/22 15:28 LJ (Rec: 06/28/22 15:45 LJ [id number]) PT-Transfer Assessment Sit to and From Stand Sit to and from Stand Contact Guard Assistance,1 Person Assistance,Use of Upper Extremities Equipment Transfer Assistive Device Gait Belt,Front Wheeled Walker Orthotic/Prosthetic Devices or Brace: No Transfers Transfer Destination Toilet Transfer Technique ambulated w/ FWW Transfer Ability Level of Assist Contact Guard Assistance,1 Person Assistance,Use of Upper Extremities Comments Mobility Comments Pt sitting in chair upon arrival. States she needs to use the toilet but will walk around room first. Cues needed to stay focused on therapy and not be distracted by other concerns. Pt ambulated around the room to door then to toilet SBA with FWW and cues to focus on walking rather than stopping and talking. Pt sat on toilet SBA and was given the cord to call light to use when she was done using the bathroom. Gait Assessment Gait Gait Assistance Required: Standby Assistance,Contact Guard Assist,1 Person Assist Distance (Feet) 30 Assistive Devices Assistive Device Gait Belt,Front Wheeled Walker Orthotic/Prosthetic Devices or Brace: No Gait Deviations General Gait Pattern Decreased Stride Length, Decreased Feet Clearance,Step- to Gait Factors Limiting Gait Function Factors Limiting Gait Function Decreased Activity Tolerance, Decreased Sensation,Decreased Strength,Difficulty Following Directions,Limited Range of Motion,Pain,Poor Balance,Poor Safety Awareness Comments Gait Comments Cues for lifting feet and posture while using FWW. M5 PT-IP Objective Assessments Start: 06/24/22 11:55 Freq: NEEDED Status: Discharge Protocol: Document 06/24/22 09:55 AB (Rec: 06/24/22 12:07 AB [id number]) Orientation Orientation/Cognition Level of Alertness Alert Orientation Name Safety Awareness Decreased Safety Awareness Memory Description Short Term Impaired Comments with confusion Gross Range of Motion Lower Extremity ROM Assessment Within Functional Limits Strength Lower Extremity Strength Hip 4-/5 Knee 3+/5 Sensation Assessment Sensation Gross Sensation Right LE Impaired,Left LE Impaired Sensation Description Numbness,[place] Muscle Tone Muscle Tone WNL Yes M6 PT-IP Treatment Start: 06/24/22 11:55 Freq: NEEDED Status: Active Protocol: Document 06/28/22 15:28 RADHA (Rec: 06/28/22 15:45 [id number]) Physical Therapy Treatment Exercises Exercises Ankle Pumps,Quad Sets,Heel Slides Education Education Provided Safety Other Treatments Other Treatment Performed standing marching prior to gait initiating M7 PT-IP Assessment and Plan Start: 06/24/22 11:55 Freq: NEEDED Status: Active Protocol: Document 06/28/22 15:28 RADHA (Rec: 06/28/22 15:45 [id number]) PT Summary Assessment and Plan Potential Rehabilitation Potential Fair Summary Impairments Pain,ROM,Strength,Balance, Coordination,Sensation,Tone, Cognition,Bed Mobility, Transfers,Gait,Activity Tolerance Progress Towards Goals Slow Progress due to Activity Tolerance Assessment Summary Pt CGA to SBA with ambulation using FWW and cues for safety and lifting feet rather thansliding them on floor. Pt will require SNF prior to DC home to improve strength, mobility, and level of independence. Goals Bed Mobility Goal Independent Transfer Goal Independent,Front Wheeled Walker Gait Goal Independent,Front Wheel Walker Gait Distance 50 Other Goals improve transfers and ambulation using FWW 100 ft SBA up/down 3 steps B rails SBA Days to Meet Goals 10 Frequency of Treatment Frequency Of Treatment Once a Day Treatment Plan Physical Therapy Treatment Plan Bed Mobility Training,Transfer Training,Gait Training, Therapeutic Exercise,Balance Retraining,Discharge Planning, Hot or Cold Pack,Neuromuscular Re-ed,Coordination Retraining Recommendations To Nursing Amount of Assist Needed 1 Person Assist Discharge Recommendations PT Discharge Recommendations SNF Rehab Equipment Needed for Home Before FWW Discharge Transportation Needs at Discharge Private Vehicle,Wheelchair/ Cabulance
== END 2022-06-28 13:00 | DRG 871 ==
LOC: ED 12:55 → AC 15:02 → ICU 15:26
PROVIDERS: Internal Medicine; Admitting Provider Internal Medicine; Emergency Provider Emergency Medicine; PCP Family Medicine; Referring Provider Emergency Medicine; Visit Provider Internal Medicine
DX: A41.9 Sepsis, unspecified organism (principal); G93.41 Metabolic encephalopathy; J12.82 Pneumonia due to coronavirus disease 2019; R65.21 Severe sepsis with septic shock; U07.1 COVID-19; I63.9 Cerebral infarction, unspecified; R57.1 Hypovolemic shock; J15.9 Unspecified bacterial pneumonia; M62.82 Rhabdomyolysis; N17.9 Acute kidney failure, unspecified; I24.8 Other forms of acute ischemic heart disease; I5A Non-ischemic myocardial injury (non-traumatic); T68.XXXA Hypothermia, initial encounter; E87.6 Hypokalemia; M79.89 Other specified soft tissue disorders; F03.90 Unspecified dementia, unspecified severity, without behavioral disturbance, psychotic disturbance, mood disturbance, and anxiety; I10 Essential (primary) hypertension; I48.91 Unspecified atrial fibrillation; R29.707 NIHSS score 7; R29.703 NIHSS score 3; X31.XXXA Exposure to excessive natural cold, initial encounter; Z87.891 Personal history of nicotine dependence; Z23 Encounter for immunization
CPT/HCPCS: 36415; 36592; 70450; 70496; 70551; 71045; 71260; 72125; 74177; 80048; 80053; 80061; 80305; 80320; 80329; 81001; 81015; 82140; 82550; 82553; 82805; 83036; 83605; 83690; 83735; 83880; 84145; 84484; 85025; 85027; 85610; 87040; 87086; 87633; 87797; 90471; 90656; 92507; 92523; 93005; 93306; 96365; 96366; 96368; 96375; 97116; 97162; 97530; 99284; 99291; G0480; J1170; J1642; J1650; J1940; J2060; J2405; J2543; J3475; Q2038; Q9967